=== PATIENT | female | born 1960 | race Two or more races ===

== ENCOUNTER 2016-03-18 18:23 | Inpatient (IN) | payer OTHER ==
--- NOTE | 2016-03-18 18:57 | PDOC ---
History of Present Illness - General History Source: Patient, EMS Exam Limitations: No Limitations <Renetta Clemens - Last Filed: 03/18/16 23:50> <Chika Rodriguez - Last Filed: 03/19/16 00:43> - General Chief Complaint: Overdose Stated Complaint: POSSIBLE OVERDOSE Time Seen by Provider: 03/18/16 18:26 - History of Present Illness Initial Comments: 03/18/16 22:55 The patient is a 56 year old female, with a significant past medical history of COPD and sleep apnea, who presents to the emergency department via EMS after being found unresponsive by her daughter this evening. On route to the ED, the patient admitted to EMS that she used heroin earlier today but does not want her daughter to know, her daughter is with her in the ED. The patient is awake and responsive currently in the ED. Allergies: None reported. Past Surgical History: Tubal ligation, Right Knee Replacement Social History: Current everyday smoker. On Methadone. See HPI. PCP: Dr. Jamilah Tyson Auto Transport Driver: Dr. Mccoy (Renetta Clemens) Past History <Renetta Clemens - Last Filed: 03/18/16 23:50> - Psycho/Social/Smoking Cessation Hx Suicidal Ideation: No Smoking History: Never smoked Hx Alcohol Use: No Drug/Substance Use Hx: No <Chika Rodriguez - Last Filed: 03/19/16 00:43> - Past Medical History Allergies/Adverse Reactions: Allergies Allergy/AdvReac Type Severity Reaction Status Date / Time No Known Allergies Allergy Verified 03/18/16 18:56 Home Medications: Ambulatory Orders Unobtainable [Unobtainable] 03/18/16 Review of Systems - Review of Systems Able to Perform ROS?: Yes <Renetta Clemens - Last Filed: 03/18/16 23:50> <Chika Rodriguez - Last Filed: 03/19/16 00:43> - Review of Systems Comments:: 03/18/16 22:53 CONSTITUTIONAL: Absent: fever, no chills, no fatigue EYES: Absent: visual changes ENT: Absent: ear pain, no sore throat CARDIOVASCULAR: Absent: chest pain, no palpitations RESPIRATORY: Absent: cough, no SOB GI: Absent: abdominal pain, no nausea, no vomiting, no constipation, no diarrhea GENITOURINARY: Absent: dysuria, no frequency, no hematuria MUSCULOSKELETAL: Absent: back pain, no arthralgia, no myalgia SKIN: Absent: rash NEURO: Absent: headache (Renetta Clemens) *Physical Exam <Renetta Clemens - Last Filed: 03/18/16 23:50> <Chika Rodriguez - Last Filed: 03/19/16 00:43> - Vital Signs Last Vital Signs Temp Pulse Resp BP Pulse Ox 98.3 F 90 18 117/78 98 03/18/16 23:25 03/18/16 23:52 03/18/16 23:52 03/18/16 23:52 03/18/16 23:52 - Physical Exam Comments: 03/18/16 22:53 GENERAL: Obese. Patient is intermittently somnolent but wakes up after Narcan. Well-appearing, well-nourished. No apparent distress. HEENT: Normocephalic, atraumatic. PERRL, EOM intact. CARDIOVASCULAR: Regular rate and rhythm. Normal S1, S2. PULMONARY: Lungs clear to auscultation bilaterally. No wheezing, rales or rhonchi. ABDOMEN: Protuberant abdomen, large pannus. Soft, non-tender. EXTREMITIES: Normal ROM in all four extremities. No gross deformities. No pitting edema. SKIN: Warm, dry. No rash. NEUROLOGICAL: No focal neurological deficits. Moving all extremities purposefully. (Renetta Clemens) Heart Score/ECG Review #1 ECG reviewed & interpreted by me at: 19:42 (Vent Rate: 105 bpm. Sinus tachycardia. Possible anterior infarct, age undetermined. ) <Renetta Clemens - Last Filed: 03/18/16 23:50> ED Treatment Course - LABORATORY CBC & Chemistry Diagram: 03/18/16 19:25 03/18/16 19:25 <Renetta Clemens - Last Filed: 03/18/16 23:50> - LABORATORY CBC & Chemistry Diagram: 03/18/16 19:25 03/18/16 19:25 <Chika Rodriguez - Last Filed: 03/19/16 00:43> - ADDITIONAL ORDERS Additional order review: Laboratory Results 03/19/16 03/18/16 03/18/16 00:30 22:20 19:45 Puncture Site Right radial Right radial ABG pH 7.31 L 7.30 L ABG pCO2 at Pt Temp 90.8 H* 90.6 H* D ABG pO2 at Pt Temp 64.8 L 61.6 L ABG HCO3 44.2 H* 43.7 H* ABG O2 Sat (Measured) 91.2 90.3 ABG O2 Content 16.8 16.9 ABG Base Excess 13.8 H 13.2 H North Test Positive Positive O2 Delivery Device Bipap Nasal Oxygen Flow Rate 35% 3l Vent Mode S/t Vent Rate 16 Mechanical Rate Y PEEP 5.0 Pressure Support Vent 12 Sodium Potassium Chloride Carbon Dioxide Anion Gap BUN Creatinine Creat Clearance w eGFR Random Glucose Calcium Total Bilirubin AST ALT Alkaline Phosphatase Total Protein Albumin Opiates Screen Positive Methadone Screen Positive Barbiturate Screen Negative Phencyclidine Screen Negative Ur Amphetamines Screen Negative MDMA (Ecstasy) Screen Negative Benzodiazepines Screen Negative Cocaine Screen Negative U Marijuana (THC) Screen Positive 03/18/16 19:25 Puncture Site ABG pH ABG pCO2 at Pt Temp ABG pO2 at Pt Temp ABG HCO3 ABG O2 Sat (Measured) ABG O2 Content ABG Base Excess North Test O2 Delivery Device Oxygen Flow Rate Vent Mode Vent Rate Mechanical Rate PEEP Pressure Support Vent Sodium 142 Potassium 5.2 H Chloride 96 L Carbon Dioxide > 45 H Anion Gap 1 L BUN 9 D Creatinine 0.7 D Creat Clearance w eGFR > 60 Random Glucose 137 H Calcium 8.6 Total Bilirubin 0.5 D AST 17 D ALT 26 Alkaline Phosphatase 69 Total Protein 6.2 L Albumin 3.2 L Opiates Screen Methadone Screen Barbiturate Screen Phencyclidine Screen Ur Amphetamines Screen MDMA (Ecstasy) Screen Benzodiazepines Screen Cocaine Screen U Marijuana (THC) Screen 03/18/16 19:25 RBC 4.89 MCV 94.4 MCHC 30.7 L RDW 18.0 H D MPV 8.8 Neutrophils % 77.6 Lymphocytes % 14.0 Monocytes % 7.5 Eosinophils % 0.5 Basophils % 0.4 - RADIOLOGY Radiology Studies Ordered: Category Date Time Status CHEST X-RAY PORTABLE* [RAD] Stat Radiology 03/18/16 22:50 Taken CXRPORT [CHEST X-RAY PORTABLE*] [RAD] Stat Radiology 03/18/16 18:59 Taken - Medications Given in the ED: ED Medications Discontinued Medications Generic Name Dose Route Start Last Admin Trade Name Suzie PRN Reason Stop Dose Admin Acetaminophen 1,000 mg 03/18/16 21:09 03/18/16 21:19 Ofirmev Injection - IVPB 03/18/16 21:10 1,000 mg ONCE ONE Administration Albuterol/Ipratropium 1 amp 03/18/16 21:05 03/18/16 23:04 Duoneb - NEB 03/18/16 21:06 1 amp ONCE STA Administration Albuterol/Ipratropium 1 amp 03/19/16 00:33 03/19/16 00:34 Duoneb - NEB 03/19/16 00:34 1 amp ONCE ONE Administration Levofloxacin 100 mls @ 100 mls/hr 03/18/16 23:37 03/18/16 23:38 Levaquin 500 Mg Premixed Ivpb - IVPB 03/19/16 00:36 100 mls/hr ONCE ONE Administration Naloxone HCl 0.2 mg 03/18/16 19:05 03/18/16 19:11 Narcan - IVPUSH 03/18/16 19:06 0.2 mg ONCE ONE Administration Naloxone HCl 0.2 mg 03/18/16 23:01 03/18/16 23:04 Narcan - IVPUSH 03/18/16 23:02 0.2 mg ONCE ONE Administration Naloxone HCl 0.2 mg 03/18/16 23:34 03/18/16 23:38 Narcan - IVPUSH 03/18/16 23:35 Not Given ONCE ONE Medical Decision Making - Critical Care Time Total Critical Care Time (minutes): 120 Critical Care Statement: The care of this patient involved high complexity decision making to prevent further life threatening deterioration of the patient 's condition and/or to evalute & treat vital organ system(s) failure or risk of failure. <Renetta Clemens - Last Filed: 03/18/16 23:50> <Chika Rodriguez - Last Filed: 03/19/16 00:43> - Medical Decision Making 03/18/16 23:03 Called patient's clay stain mixer, Dr. Mccoy, at at 23:05. Connected and case discussed with Dr. Thomas. (Renetta Clemens) 03/18/16 20:12 56-year-old female was brought in by ambulance after she was found nonresponsive by her daughter. However, she was alert upon arrival. She admitted to paramedics she had taken heroin. The paramedics told me that the mother did not want the daughter t0 know -Patient is on methadone daily. I didn't know this when she initially arrived -She was quite somnolent after she had been bit here a while and so a small amount of Narcan 0.2 mg was given and unfortunately she went into immediate withdrawal with yawning ,irritability,and tachycardia -No history patient still smokes. She has a past medical history of 50 pack years of tobacco. She also uses heroin in addition to her daily methadone. Past medical history significant for sleep apnea, COPD. She had been using C Pap machine at home but found this very uncomfortable and is awaiting a BiPAP. machine 03/18/16 23:05 03/18/16 23:06 inital ekg was sinus tach at 105 -Drug Screen is positive for marijuana, methadone, opiates - ABG shows that the patient is a CO2 retainer. Patient was placed on BiPAP. Fio2= 35%, epap=4 ipap=11 her pulse ox=93% Discussed with Dr. Millan. Case is also discussed with the clay stain mixer covering for Dr. Mccoy. I spoke with Dr. Thomas pt admitted for heroin overdose and copd (Chika Rodriguez) *DC/Admit/Observation/Transfer <Renetta Clemens - Last Filed: 03/18/16 23:50> - Discharge Dispostion Admit: Yes <Chika Rodriguez - Last Filed: 03/19/16 00:43> Diagnosis at time of Disposition: Heroin overdose Qualifiers: Encounter type: initial encounter Injury intent: undetermined intent Qualified Code(s): T40.1X4A - Poisoning by heroin, undetermined, initial encounter COPD (chronic obstructive pulmonary disease) Qualifiers: COPD type: unspecified COPD Qualified Code(s): J44.9 - Chronic obstructive pulmonary disease, unspecified Aspiration pneumonia Qualifiers: Aspiration pneumonia type: unspecified Laterality: right Lung location: lower lobe of lung Qualified Code(s): J69.0 - Pneumonitis due to inhalation of food and vomit - Discharge Dispostion Decision to Admit order Date/Time: Decision to Admit Order Category Date Time Status Decision to Admit to Hospital Routine Phy Order 03/19/16 00:27 Ordered - Referrals Referrals: Godwin Mccoy MD [Primary Care Provider] - - Attestations Scribe Attestion: 03/18/16 21:43 Documentation prepared by Renetta Clemens, acting as medical billing instructor for Chika Rodriguez MD. (Jayleen,Renetta)
[2016-03-18] MEDS ORDERED: NALOXONE HCL 0.4 MG/ML VIAL IVPUSH ONE ×3 (19:05→23:34)
[2016-03-18] MEDS ORDERED: NALOXONE HCL 0.4 MG/ML VIAL ONE ×2 (19:14→23:05)
[2016-03-18 19:59] LABS: ALBUMIN 3.2 g/dl (3.4-5.0); BILIRUBIN,TOTAL 0.5 mg/dL (0.2-1.0); CALCIUM 8.6 mg/dL (8.5-10.1); CREATININE 0.7 mg/dL (0.55-1.02); GLUCOSE,RANDOM 137 mg/dL (74-106); SGOT/AST 17 U/L (15-37); TOT PROT 6.2 g/dl (6.4-8.2)
[2016-03-18 20:01] LABS: ALK PHOS 69 U/L (45-117); SGPT/ALT 26 U/L (12-78)
[2016-03-18 20:02] LABS: ANION GAP 1 (8-16); CO2 > 45 mmol/L (21-32)
[2016-03-18 20:12] LABS: BASOPHIL 0.4 % (0-2.0); EOSINOPHIL 0.5 % (0-4.5); MCHC 30.7 g/dl (32.0-36.0); MEAN CELL VOLUME 94.4 fl (80-96); MEAN PLT VOLUME 8.8 fl (7.5-11.1); NEUTROPHILS 77.6 % (42.8-82.8); PLATELET COUNT 179 K/MM3 (134-434); WHITE BLOOD COUNT 9.3 K/mm3 (4.0-10.0)
[2016-03-18 20:15] LABS: URINE MARIJUANA THC POSITIVE ng/ml (CUTOFF=50)
[2016-03-18] MEDS ORDERED: ALBUTEROL SO4 2.5/IPRATROPIUM 0.5 INH SOL 3 ML VIAL.NEB. NEB STA (21:05)
[2016-03-18] MEDS ORDERED: ACETAMINOPHEN 1000 MG/100 ML VIAL (NON FORMULARY) IVPB ONE (21:09)
[2016-03-18] MEDS ORDERED: ACETAMINOPHEN 325 MG TABLET (FP) ONE (21:14)
[2016-03-18 22:21] LABS: ARTERIAL BLD GAS O2 SATURATION 90.3 % (90-98.9); ARTERIAL BLOOD GAS BASE EXCESS 13.2 meq/l (-2-2); ARTERIAL BLOOD GAS HCO3 43.7 meq/L (22-26); ARTERIAL BLOOD GAS PO2 61.6 mmHg (80-100)
[2016-03-18 22:22] LABS: ALLENS TEST POSITIVE; ART PUNCT SITE RIGHT RADIAL; LPM/O2% 3L; PT. ON O2? YES; TYPE OF O2 NASAL
--- NOTE | 2016-03-18 22:45 | PN ---
<Maurice Millan - Last Filed: 03/18/16 22:45> Teaching Attending Note Name of Resident: Love Chambers ATTENDING PHYSICIAN STATEMENT I saw and evaluated the patient. I reviewed the resident's note and discussed the case with the resident. I agree with the resident's findings and plan as documented. SUBJECTIVE: OBJECTIVE: ASSESSMENT AND PLAN: <Brittni Connell - Last Filed: 03/19/16 00:50> Teaching Attending Note ATTENDING PHYSICIAN STATEMENT I saw and evaluated the patient. I reviewed the resident's note and discussed the case with the resident. I agree with the resident's findings and plan as documented. SUBJECTIVE: Patient is a 56 year old female, current smoker, with a significant past medical history of COPD and TENNILLE who presents being found unresponsive by her daughter. Patient admitted to EMS that she used heroin. Up on interview in ED awake and able to answer questions, patient admitted to vomiting x1 earlier today after eating, but unwilling to give further details. OBJECTIVE: Physical: VS: Last Vital Signs Temp Pulse Resp BP Pulse Ox 98.3 F 90 18 117/78 98 03/18/16 23:25 03/18/16 23:52 03/18/16 23:52 03/18/16 23:52 03/18/16 23:52 GEN: NAD, Obese, alert and oriented, able to speak full sentences while on BiPAP HEENT: NCAT, PERRL CARD: tachycardia, S1 S2 RESP mildly decreased breath sounds at bases ABD: abdominal striae, left lower quadrant bruising, BWS x4 non distended EXT: - CCE LABS: CBCD WBC 9.3 K/mm3 (4.0-10.0) 03/18/16 19:25 RBC 4.89 M/mm3 (3.60-5.2) 03/18/16 19:25 Hgb 14.2 GM/dL (10.7-15.3) D 03/18/16 19:25 Hct 46.2 % (32.4-45.2) H 03/18/16 19:25 MCV 94.4 fl (80-96) 03/18/16 19:25 MCHC 30.7 g/dl (32.0-36.0) L 03/18/16 19:25 RDW 18.0 % (11.6-15.6) H D 03/18/16 19:25 Plt Count 179 K/MM3 (134-434) D 03/18/16 19:25 MPV 8.8 fl (7.5-11.1) 03/18/16 19:25 CMP Sodium 142 mmol/L (136-145) 03/18/16 19:25 Potassium 5.2 mmol/L (3.5-5.1) H 03/18/16 19:25 Chloride 96 mmol/L (98-107) L 03/18/16 19:25 Carbon Dioxide > 45 mmol/L (21-32) H 03/18/16 19:25 Anion Gap 1 (8-16) L 03/18/16 19:25 BUN 9 mg/dL (7-18) D 03/18/16 19:25 Creatinine 0.7 mg/dL (0.55-1.02) D 03/18/16 19:25 Creat Clearance w eGFR > 60 (>60) 03/18/16 19:25 Calcium 8.6 mg/dL (8.5-10.1) 03/18/16 19:25 Total Bilirubin 0.5 mg/dL (0.2-1.0) D 03/18/16 19:25 AST 17 U/L (15-37) D 03/18/16 19:25 ALT 26 U/L (12-78) 03/18/16 19:25 Alkaline Phosphatase 69 U/L (45-117) 03/18/16 19:25 Total Protein 6.2 g/dl (6.4-8.2) L 03/18/16 19:25 Albumin 3.2 g/dl (3.4-5.0) L 03/18/16 19:25 IMAGING: CXR with questionable right infiltrate possible left aspiration ECG Impression: Q waves V1V2 Sinus 105 QTC 428 ASSESSMENT AND PLAN: Patient is a 56 year old female current smoker with past medical history of COPD and TENNILLE who presented unresponsive due to heroin overdose in hypercapnic respiratory failure 1.) Acute hypercapnic respiratory failure - Continue with BiPAP - Repeat Abg - CXR and Abg in AM - Most likely due to overdose/OHS/TENNILLE - If Abg worsening or patients condition worsening low threshold for intubation - Repeat Abg reviewed, patient not compliant with mask initially explained importance of BiPAP, will repeat Abg 2.) Heroin overdose - s/p Narcan 0.2x2 in ED and 0.4x2 in ED - Detox consult - Trend troponin 3.) COPD - Currently not in exacerbation - duoneb PRN for SOB - Obtain home meds in AM 4.) TENNILLE - Continue with BiPAP 5.) Right infiltrate on CXR - No leukocytosis or fever - s/p Levaquin in ED - Consider Clindamycin for possible aspiration 6.) Hyperkalemia - s/p Albuterol - Mild at 5.2 - Repeat potassium 7.) DVT ppx - Heparin 5000 q8 Admit to ICU. Documentation prepared by Brittni Connell, acting as medical technologist chemistry for Maurice Millan D.O. Critical Care Total Critical Care Time (in minutes): 60 Critical Care Statement: The care of this patient involved high complexity decision making to prevent further life threatening deterioration of the patient 's condition and/or to evalute & treat vital organ system(s) failure or risk of failure.
[2016-03-18] MEDS ORDERED: LEVOFLOXACIN 500 MG IVPB 100 ML IVPB ONE ×2 (23:37→23:38)
--- NOTE | 2016-03-19 00:10 | HP ---
CHIEF COMPLAINT: Heroin overdose PCP: HISTORY OF PRESENT ILLNESS: The patient is a 56 year old female, with a significant past medical history of COPD, on home Oxygen 2L, obstructive sleep apnea, morbidly obese, who presents to the hospital via EMS after being found unresponsive by her daughter this evening. The pt admitted on the route to the hospital that she took Heroin earlier today. She was given Narcan in ED and was started on Bi-Pap due to hypercapnia. The patient is awake and responsive currently, not in respiratory distress. The pt states that she vomited once today, right after eating. She doesn't want her daughter to know that she took heroin today. She is complaining of pain in her buttocks, After last dose of Narcan in ED she started being anxious with associated jerking movements and yawing constantly. History was taken partially from the pt and from medical records. ER course was notable for: (1)Narcan (2)Chest x ray x2 (3)Bi-Pap PAST MEDICAL HISTORY: COPD, TENNILLE, Morbid obesity PAST SURGICAL HISTORY: Right knee replacement, tubal ligation Social History: Smoking:Yes, doesn't remember how much/how long Alcohol:Denies Drugs: Admits taking Methadone 80 mg daily for 4 years Family History: Doesn't know parents' PMH Allergies No Known Allergies Allergy (Verified 03/18/16 18:56) HOME MEDICATIONS: Medication Instructions Recorded Unobtainable [Unobtainable] 03/18/16 REVIEW OF SYSTEMS: limited CONSTITUTIONAL: Absent: fever, chills HEENT: Absent: throat pain,, ear pain, eye pain, CARDIOVASCULAR: Absent: chest pain, palpitations, RESPIRATORY: Absent: cough, shortness of breath GASTROINTESTINAL: vomiting x 1 Absent: abdominal pain, abdominal distension, nausea, diarrhea, constipation, GENITOURINARY: Absent: dysuria, frequency, urgency, hesitancy, MUSCULOSKELETAL: pain in the buttocks Absent: arthralgia, SKIN: Absent: rash, NEUROLOGIC: Absent: headache PHYSICAL EXAMINATION Vital Signs - 24 hr 03/18/16 03/18/16 03/18/16 18:54 23:11 23:25 Temperature 98.7 F 98.3 F Pulse Rate 90 Pulse Rate [ 98 H Left Radial] Respiratory 20 20 Rate Blood Pressure 152/95 Blood Pressure 150/90 [Left Arm] O2 Sat by Pulse 98 96 98 Oximetry (%) GENERAL: Awake, alert, and oriented, AAx2 (not oriented to time), in no acute distress. HEAD: Normal with no signs of trauma. EYES: Pupils constricted, reactive to light, extraocular movements intact, sclera anicteric, conjunctiva clear. No lid lag. EARS, NOSE, THROAT: Ears normal, nares patent, oropharynx clear without exudates. Moist mucous membranes. NECK: Normal range of motion, supple without lymphadenopathy, JVD, or masses. LUNGS: Breath sounds equal, diminished bilaterally. No wheezes, and no crackles. No accessory muscle use. HEART: Regular rate and rhythm, normal S1 and S2 without murmur, rub or gallop. ABDOMEN: Obese, soft, nontender, not distended, normoactive bowel sounds, no guarding, no rebound, no masses. No hepatomegaly or splenomegaly. MUSCULOSKELETAL: Normal range of motion at all joints. No bony deformities or tenderness. No CVA tenderness. UPPER EXTREMITIES: 2+ pulses, warm, well-perfused. No cyanosis. No clubbing. Cap refill <2 seconds. No peripheral edema. LOWER EXTREMITIES: 2+ pulses, warm, well-perfused. No calf tenderness. No peripheral edema. NEUROLOGICAL: Cranial nerves II-XII intact. Normal speech. Gait not observed. PSYCHIATRIC: Anxious. Cooperative. Good eye contact. SKIN: Warm, dry, normal turgor, no rashes or lesions noted. Laboratory Results - last 24 hr 03/18/16 03/18/16 03/18/16 19:25 19:25 19:45 WBC 9.3 RBC 4.89 Hgb 14.2 D Hct 46.2 H MCV 94.4 MCHC 30.7 L RDW 18.0 H D Plt Count 179 D MPV 8.8 Neutrophils % 77.6 Lymphocytes % 14.0 Monocytes % 7.5 Eosinophils % 0.5 Basophils % 0.4 Puncture Site ABG pH ABG pCO2 at Pt Temp ABG pO2 at Pt Temp ABG HCO3 ABG O2 Sat (Measured) ABG O2 Content ABG Base Excess North Test O2 Delivery Device Oxygen Flow Rate Sodium 142 Potassium 5.2 H Chloride 96 L Carbon Dioxide > 45 H Anion Gap 1 L BUN 9 D Creatinine 0.7 D Creat Clearance w eGFR > 60 Random Glucose 137 H Calcium 8.6 Total Bilirubin 0.5 D AST 17 D ALT 26 Alkaline Phosphatase 69 Total Protein 6.2 L Albumin 3.2 L Opiates Screen Positive Methadone Screen Positive Barbiturate Screen Negative Phencyclidine Screen Negative Ur Amphetamines Screen Negative MDMA (Ecstasy) Screen Negative Benzodiazepines Screen Negative Cocaine Screen Negative U Marijuana (THC) Screen Positive 03/18/16 22:20 WBC RBC Hgb Hct MCV MCHC RDW Plt Count MPV Neutrophils % Lymphocytes % Monocytes % Eosinophils % Basophils % Puncture Site Right radial ABG pH 7.30 L ABG pCO2 at Pt Temp 90.6 H* D ABG pO2 at Pt Temp 61.6 L ABG HCO3 43.7 H* ABG O2 Sat (Measured) 90.3 ABG O2 Content 16.9 ABG Base Excess 13.2 H North Test Positive O2 Delivery Device Nasal Oxygen Flow Rate 3l Sodium Potassium Chloride Carbon Dioxide Anion Gap BUN Creatinine Creat Clearance w eGFR Random Glucose Calcium Total Bilirubin AST ALT Alkaline Phosphatase Total Protein Albumin Opiates Screen Methadone Screen Barbiturate Screen Phencyclidine Screen Ur Amphetamines Screen MDMA (Ecstasy) Screen Benzodiazepines Screen Cocaine Screen U Marijuana (THC) Screen ASSESSMENT/PLAN: The pt is a 56 year ld female with PMH of COPD, TENNILLE, Heroin abuse (on Methadone ) who presents to the hospital after being found unresponsive. She is admitted for hypercapnic respratory failure due to Heroin overdose. Hypercapnic Respiratory Failure: -most likely due to heroin overdose/COPD/TENNILLE -contine Bi-Pap -f/u ABGi in AM -f/u Chest x ray in AM -continue Bi-Pap, consider intubation if her condition worsens Heroin Overdose; -Detox consultation -given Narcan 0.2x3, 0.4x2 -monitor vital signs -cardiac monitoring -cardiac profile, f/u troponins Possible aspiration Pneumonia: -pt vomited, hx of overdose -chest x ray show questionable infiltrate -start antibiotics if fever, leukocytosis, -blood cultures pending History of COPD: -get medication list in AM -Duonebs PRN Hyperkalemia: -5.2 -monitor in AM -s/p Albuterol TENNILLE: -continue Bi-Pap DVT prophylaxis: -5000 u SQ Q8H F/E/N; No/No/Regular Dispisition: Admit to ICU Problem List - Problem (1) COPD (chronic obstructive pulmonary disease) Code(s): J44.9 - CHRONIC OBSTRUCTIVE PULMONARY DISEASE, UNSPECIFIED Qualifiers : COPD type: unspecified COPD Qualified Code(s): J44.9 - Chronic obstructive pulmonary disease, unspecified (2) Aspiration pneumonia Code(s): J69.0 - PNEUMONITIS DUE TO INHALATION OF FOOD AND VOMIT Qualifiers: Aspiration pneumonia type: unspecified Laterality: right Lung location: lower lobe of lung Qualified Code(s): J69.0 - Pneumonitis due to inhalation of food and vomit (3) Heroin overdose Code(s): T40.1X1A - POISONING BY HEROIN, ACCIDENTAL (UNINTENTIONAL), INIT ENCNTR Qualifiers: Encounter type: initial encounter Injury intent: undetermined intent Qualified Code(s): T40.1X4A - Poisoning by heroin, undetermined, initial encounter Visit type - Emergency Visit Emergency Visit: Yes Care time: The patient presented to the Emergency Department on the above date and was hospitalized for further evaluation of their emergent condition. - New Patient This patient is new to me today: Yes Date on this admission: 03/19/16 - Critical Care Critical Care patient: No
[2016-03-19 00:29] LABS: ALLENS TEST POSITIVE; ART PUNCT SITE RIGHT RADIAL; ARTERIAL BLD GAS O2 SATURATION 91.2 % (90-98.9); ARTERIAL BLOOD GAS BASE EXCESS 13.8 meq/l (-2-2); ARTERIAL BLOOD GAS HCO3 44.2 meq/L (22-26); ARTERIAL BLOOD GAS PO2 64.8 mmHg (80-100); ARTERIAL BLOOD GAS pH 7.31 (7.35-7.45); LPM/O2% 35%; MECH. VENT. Y; PT. ON O2? YES
[2016-03-19 00:30] LABS: TYPE OF O2 BIPAP; VENT RATE 16; VT/PRESS 12
[2016-03-19] MEDS ORDERED: ALBUTEROL SO4 2.5/IPRATROPIUM 0.5 INH SOL 3 ML VIAL.NEB. NEB ONE (00:33)
--- NOTE | 2016-03-19 02:26 | CONSULT ---
Consult Consult Specialty:: PULM / CCM Referred by:: Dr. Maurice Millan Reason for Consultation:: OD - History of Present Illness Chief Complaint: "I'm hungry. When is breakfast around Here???" History of Present Illness: Ms. Camacho is a 56 y/o woman w/ a long Hx/o PSA (On Methadone), COPD on home O2 & [place]/[facility] (Pt of Dr. Mccoy), BIBA O/N for AMS in the setting of using Heroin. In the ED c/f hypercapnic ABGs w/ pCO2s in the 90's but HCO3 is off the scale @ > 45 (more c/w a chronic hypercapnea player). Nevertheless, it was felt that the pt required multiple rounds of low dose narcan. The pt was transferred to the ICU now for close watch +/- need for frequent narcan dosing. Upon exam pt in NAD, CA+OX3, requesting breakfast. Careful pt interview reveals that pt had not snorted heroin in > 1wk and then tonight snorted her usual dose in addition to her methadone. Pt can be transferred to Med-Surg for continued care & monitoring. Of note, the pt would like that her daughter NOT be informed of her recent Heroin use. - History Source History Provided By: Patient, Medical Record Limitations to Obtaining History: No Limitations - Past Medical History PROPERTY INSURANCE AGENT: No: Seizure Cardio/Vascular: No: CAD, HTN, Hyperlipdemia, IA, Murmur Pulmonary: Yes: COPD, O2 Dependent, Sleep Apnea Hepatobiliary: No: Cirrhosis Renal/: No: Renal Failure ...: No Heme/Onc: No: Anemia Infectious Disease: No: HIV Psych: Yes: Other (Hx/o PSA on methadone) - Past Surgical History Past Surgical History: Yes: Tubal Ligation Additional Surgical History: R Knee replace - Alcohol/Substance Use Hx Alcohol Use: No History of Substance Use: reports: Heroin - Smoking History Smoking history: Current every day smoker Have you smoked in the past 12 months: Yes - Social History History of Recent Travel: No Home Medications - Allergies Allergies/Adverse Reactions: Allergies Allergy/AdvReac Type Severity Reaction Status Date / Time No Known Allergies Allergy Verified 03/18/16 18:56 - Home Medications Home Medications: Ambulatory Orders Unobtainable [Unobtainable] 03/18/16 Family Disease History - Family Disease History Family History: Denies Review of Systems - Review of Systems Constitutional: reports: No Symptoms Eyes: reports: No Symptoms HENT: reports: No Symptoms Neck: reports: No Symptoms Cardiovascular: reports: No Symptoms Respiratory: reports: No Symptoms Gastrointestinal: reports: No Symptoms Genitourinary: reports: No Symptoms Breasts: reports: No Symptoms Reported Musculoskeletal: reports: No Symptoms Integumentary: reports: No Symptoms Neurological: reports: No Symptoms Endocrine: reports: No Symptoms Hematology/Lymphatic: reports: No Symptoms Psychiatric: reports: No Symptoms Pain Intensity: 0 Physical Exam Vital Signs: Vital Signs Temperature 98.4 F 03/19/16 01:12 Pulse Rate 91 H 03/19/16 01:12 Respiratory Rate 17 03/19/16 01:12 Blood Pressure 112/78 03/19/16 01:12 O2 Sat by Pulse Oximetry (%) 97 03/19/16 02:19 Constitutional: Yes: Well Nourished, No Distress, Calm, Obese, Poor Hygeine Eyes: Yes: WNL, Conjunctiva Clear, EOM Intact HENT: Yes: WNL, Atraumatic, Normocephalic Neck: Yes: WNL, Supple, Trachea Midline Cardiovascular: Yes: WNL, Regular Rate and Rhythm Respiratory: Yes: WNL, Regular, CTA Bilaterally, Cough Gastrointestinal: Yes: WNL, Normal Bowel Sounds, Soft, Abdomen, Obese ...Rectal Exam: Yes: Deferred Renal/: Yes: WNL Breast(s): Yes: WNL Musculoskeletal: Yes: WNL Extremities: Yes: WNL Edema: No Peripheral Pulses WNL: Yes Integumentary: Yes: WNL Neurological: Yes: WNL, Alert, Oriented ...Motor Strength: WNL Psychiatric: Yes: WNL Labs: CBC, BMP 03/18/16 19:25 03/18/16 19:25 Troponin, BNP 03/19/16 01:09 Troponin I < 0.02 Laboratory Results - last 24 hr 03/18/16 03/18/16 03/18/16 19:25 19:25 19:45 WBC 9.3 RBC 4.89 Hgb 14.2 D Hct 46.2 H MCV 94.4 MCHC 30.7 L RDW 18.0 H D Plt Count 179 D MPV 8.8 Neutrophils % 77.6 Lymphocytes % 14.0 Monocytes % 7.5 Eosinophils % 0.5 Basophils % 0.4 Puncture Site ABG pH ABG pCO2 at Pt Temp ABG pO2 at Pt Temp ABG HCO3 ABG O2 Sat (Measured) ABG O2 Content ABG Base Excess North Test O2 Delivery Device Oxygen Flow Rate Vent Mode Vent Rate Mechanical Rate PEEP Pressure Support Vent Sodium 142 Potassium 5.2 H Chloride 96 L Carbon Dioxide > 45 H Anion Gap 1 L BUN 9 D Creatinine 0.7 D Creat Clearance w eGFR > 60 Random Glucose 137 H Calcium 8.6 Total Bilirubin 0.5 D AST 17 D ALT 26 Alkaline Phosphatase 69 Troponin I Total Protein 6.2 L Albumin 3.2 L Opiates Screen Positive Methadone Screen Positive Barbiturate Screen Negative Phencyclidine Screen Negative Ur Amphetamines Screen Negative MDMA (Ecstasy) Screen Negative Benzodiazepines Screen Negative Cocaine Screen Negative U Marijuana (THC) Screen Positive Imaging - Results Chest X-ray: Image Reviewed (03/18: Bibasilar infiltrates, otherwise unremark (My Read).) EKG: Image Reviewed (S-Tach in the low 100's w/o ectopy, normal axis, Q waves in : V1, V2, V3, c/f anterior infarct, but ST-wave aberrations, QTc = 428ms (My Read).) Problem List - Problems (1) COPD (chronic obstructive pulmonary disease) Code(s): J44.9 - CHRONIC OBSTRUCTIVE PULMONARY DISEASE, UNSPECIFIED Qualifiers : COPD type: unspecified COPD Qualified Code(s): J44.9 - Chronic obstructive pulmonary disease, unspecified (2) Heroin overdose Code(s): T40.1X1A - POISONING BY HEROIN, ACCIDENTAL (UNINTENTIONAL), INIT ENCNTR Qualifiers: Encounter type: initial encounter Injury intent: undetermined intent Qualified Code(s): T40.1X4A - Poisoning by heroin, undetermined, initial encounter Assessment/Plan ASSESS: This is a 56 y/o woman w/ a long Hx/o PSA (On Methadone), COPD on home O2 & [place]/[facility] (Pt of Dr. Mccoy), admitted now w/ A on C hypercapnia in the setting of using heroin. PLAN: -STOP CHECKING THIS PT's ABG -THIS PT's BASELINE ABGs ARE ABNORMAL -THIS PT's ABG WHEN SHE IS AWAKE & TALKING IS HER NORMAL ABG -Supp FiO2 for SpO2 > 92% -Nebs -Nocturnal Bi-Level -Cover for CAP -F/u Clxr data -Cont Mehadone @ 80mg PO QD -Nicotene patch -Reg Diet -SQH -PPI -D/c --> Home to F/u w/ Dr. Mccoy as an outpatient -Pt should stop snorting Heroin RUDOLPH Venkat Lares, ACNP-BC [id number] PULM / CCM
[2016-03-19 02:58] VITALS: BMI 41.2
[2016-03-19] MEDS: HEPARIN NA (PORCINE) 5,000 UNITS/ML 1ML VIAL SQ SCH ×2 (03:07→11:07)
[2016-03-19 03:33] LABS: TROPONIN I < 0.02 ng/ml (0.00-0.05)
[2016-03-19] MEDS ORDERED: CEFTRIAXONE 50 ML IVPB SCH (04:00)
[2016-03-19] MEDS ORDERED: AZITHROMYCIN IVPB 250 ML IVPB SCH (04:00)
[2016-03-19 06:19] LABS: MCH 29.3 pg (25.7-33.7); MCHC 31.3 g/dl (32.0-36.0); MEAN CELL VOLUME 93.6 fl (80-96); MEAN PLT VOLUME 9.2 fl (7.5-11.1); PLATELET COUNT 182 K/MM3 (134-434); RDW 16.9 % (11.6-15.6); WHITE BLOOD COUNT 6.6 K/mm3 (4.0-10.0)
[2016-03-19 06:44] LABS: TROPONIN I < 0.02 ng/ml (0.00-0.05)
[2016-03-19 09:42] LABS: ANION GAP 1 (8-16); CALCIUM 8.4 mg/dL (8.5-10.1); CO2 45 mmol/L (21-32); CREATININE 0.5 mg/dL (0.55-1.02); GLUCOSE,RANDOM 90 mg/dL (74-106)
[2016-03-19] MEDS ORDERED: MUPIROCIN 2% TOPICAL OINTMENT FOR DECOLONIZATION NS SCH (10:00)
[2016-03-19] MEDS ORDERED: PNEUMOC 13-VAL CONJ-DIP CRM/PF 0.5 ML DISP.SYRIN IM ONE (11:29)
--- NOTE | 2016-03-19 13:12 | PN ---
Teaching Attending Note Name of Resident: Keith Mercado ATTENDING PHYSICIAN STATEMENT I saw and evaluated the patient. I reviewed the resident's note and discussed the case with the resident. I agree with the resident's findings and plan as documented. SUBJECTIVE: Patient seen and examined in the ICU. Sleepy but very easily arousable. Asking for her Methadone. Denies CP or SOB. Constitutional: Yes: Sleepy but easily arousable, NAD obese Eyes: Yes: WNL, Conjunctiva Clear, EOM Intact HENT: Yes: WNL, Atraumatic, Normocephalic Neck: Yes: WNL, Supple, Trachea Midline Cardiovascular: Yes: WNL, Regular Rate and Rhythm Respiratory: Yes: WNL, Regular, CTA Bilaterally, Cough Gastrointestinal: Yes: WNL, Normal Bowel Sounds, Soft, Abdomen, Obese ...Rectal Exam: Yes: Deferred Renal/: Yes: WNL Breast(s): Yes: WNL Musculoskeletal: Yes: WNL Extremities: Yes: WNL Edema: No Peripheral Pulses WNL: Yes Integumentary: Yes: WNL Neurological: Yes: WNL, Alert, Oriented ...Motor Strength: WNL Psychiatric: Yes: WNL Labs: Laboratory Results - last 24 hr 03/18/16 03/18/16 03/18/16 19:25 19:25 19:45 WBC 9.3 RBC 4.89 Hgb 14.2 D Hct 46.2 H MCV 94.4 MCHC 30.7 L RDW 18.0 H D Plt Count 179 D MPV 8.8 Neutrophils % 77.6 Lymphocytes % 14.0 Monocytes % 7.5 Eosinophils % 0.5 Basophils % 0.4 Puncture Site ABG pH ABG pCO2 at Pt Temp ABG pO2 at Pt Temp ABG HCO3 ABG O2 Sat (Measured) ABG O2 Content ABG Base Excess North Test O2 Delivery Device Oxygen Flow Rate Vent Mode Vent Rate Mechanical Rate PEEP Pressure Support Vent Sodium 142 Potassium 5.2 H Chloride 96 L Carbon Dioxide > 45 H Anion Gap 1 L BUN 9 D Creatinine 0.7 D Creat Clearance w eGFR > 60 Random Glucose 137 H Calcium 8.6 Total Bilirubin 0.5 D AST 17 D ALT 26 Alkaline Phosphatase 69 Creatine Kinase 34 Troponin I < 0.02 Total Protein 6.2 L Albumin 3.2 L Opiates Screen Positive Methadone Screen Positive Barbiturate Screen Negative Phencyclidine Screen Negative Ur Amphetamines Screen Negative MDMA (Ecstasy) Screen Negative Benzodiazepines Screen Negative Cocaine Screen Negative U Marijuana (THC) Screen Positive 03/18/16 03/19/16 03/19/16 22:20 00:30 01:09 WBC RBC Hgb Hct MCV MCHC RDW Plt Count MPV Neutrophils % Lymphocytes % Monocytes % Eosinophils % Basophils % Puncture Site Right radial Right radial ABG pH 7.30 L 7.31 L ABG pCO2 at Pt Temp 90.6 H* D 90.8 H* ABG pO2 at Pt Temp 61.6 L 64.8 L ABG HCO3 43.7 H* 44.2 H* ABG O2 Sat (Measured) 90.3 91.2 ABG O2 Content 16.9 16.8 ABG Base Excess 13.2 H 13.8 H North Test Positive Positive O2 Delivery Device Nasal Bipap Oxygen Flow Rate 3l 35% Vent Mode S/t Vent Rate 16 Mechanical Rate Y PEEP 5.0 Pressure Support Vent 12 Sodium Cancelled Potassium Cancelled Chloride Cancelled Carbon Dioxide Cancelled Anion Gap Cancelled BUN Cancelled Creatinine Cancelled Creat Clearance w eGFR Random Glucose Cancelled Calcium Cancelled Total Bilirubin AST ALT Alkaline Phosphatase Creatine Kinase Troponin I < 0.02 Total Protein Albumin Opiates Screen Methadone Screen Barbiturate Screen Phencyclidine Screen Ur Amphetamines Screen MDMA (Ecstasy) Screen Benzodiazepines Screen Cocaine Screen U Marijuana (THC) Screen 03/19/16 03/19/16 03/19/16 05:00 05:00 05:00 WBC 6.6 RBC 4.51 Hgb 13.2 Hct 42.2 MCV 93.6 MCHC 31.3 L RDW 16.9 H Plt Count 182 MPV 9.2 Neutrophils % Lymphocytes % Monocytes % Eosinophils % Basophils % Puncture Site ABG pH ABG pCO2 at Pt Temp ABG pO2 at Pt Temp ABG HCO3 ABG O2 Sat (Measured) ABG O2 Content ABG Base Excess North Test O2 Delivery Device Oxygen Flow Rate Vent Mode Vent Rate Mechanical Rate PEEP Pressure Support Vent Sodium Cancelled 142 Potassium Cancelled 3.9 D Chloride Cancelled 96 L Carbon Dioxide Cancelled 45 H Anion Gap Cancelled 1 L BUN Cancelled 7 D Creatinine Cancelled 0.5 L D Creat Clearance w eGFR Random Glucose Cancelled 90 D Calcium Cancelled 8.4 L Total Bilirubin AST ALT Alkaline Phosphatase Creatine Kinase Troponin I < 0.02 Total Protein Albumin Opiates Screen Methadone Screen Barbiturate Screen Phencyclidine Screen Ur Amphetamines Screen MDMA (Ecstasy) Screen Benzodiazepines Screen Cocaine Screen U Marijuana (THC) Screen Problem List - Problems (1) COPD (chronic obstructive pulmonary disease) Code(s): J44.9 - CHRONIC OBSTRUCTIVE PULMONARY DISEASE, UNSPECIFIED Qualifiers : COPD type: unspecified COPD Qualified Code(s): J44.9 - Chronic obstructive pulmonary disease, unspecified (2) Heroin overdose Code(s): T40.1X1A - POISONING BY HEROIN, ACCIDENTAL (UNINTENTIONAL), INIT ENCNTR Qualifiers: Encounter type: initial encounter Injury intent: undetermined intent Qualified Code(s): T40.1X4A - Poisoning by heroin, undetermined, initial encounter Assessment/Plan ASSESS: This is a 56 y/o woman w/ a long Hx/o PSA (On Methadone), COPD on home O2 & [place]/[facility], admitted now w/ A on C hypercapnia in the setting of using heroin. PLAN: -Supp FiO2 for SpO2 > 92% -Nebs -Nocturnal Bi-Level -Addiction consult for input about Methadone 80mg PO QD -Nicotene patch -[facility] -4W/4S monitoring Dr Chadwick CCTime 35"
[2016-03-19] MEDS ORDERED: ALBUTEROL SO4 2.5/IPRATROPIUM 0.5 INH SOL 3 ML VIAL.NEB. NEB PRN (13:49)
[2016-03-19] MEDS ORDERED: ACETAMINOPHEN 325 MG TABLET (FP) PO PRN (13:56)
[2016-03-19] MEDS ORDERED: DOCUSATE SODIUM 100 MG CAPSULE (FP) PO SCH (14:00)
[2016-03-19] MEDS ORDERED: METHADONE HCL 10 MG TABLET PO ONE (14:02)
[2016-03-19] MEDS ORDERED: ASPIRIN 81 MG CHEWABLE TABLETS ONE (14:08)
--- NOTE | 2016-03-19 14:09 | PN ---
[facility] Progress Note (SOAP) Subjective: PT. WAS FOUND UNRESPONSIVE AT HOME BY DAUGHTERYU TO ED,NARCAN GIVEN.ACCORDING TO DOCUMENTATION PT. ADMITS TO USING HEROIN IN ADDITION TO METHADONE 80MG. Objective: 03/19/16 14:07 Vital Signs - 8 hr 03/19/16 03/19/16 03/19/16 08:00 10:00 10:04 Temperature 98.4 F Pulse Rate 94 H 88 99 H Respiratory 15 17 Rate Blood Pressure 111/68 106/79 O2 Sat by Pulse 97 97 Oximetry (%) Laboratory Tests 03/18/16 03/18/16 03/18/16 19:25 19:25 19:45 WBC 9.3 RBC 4.89 Hgb 14.2 D Hct 46.2 H MCV 94.4 MCHC 30.7 L RDW 18.0 H D Plt Count 179 D MPV 8.8 Neutrophils % 77.6 Lymphocytes % 14.0 Monocytes % 7.5 Eosinophils % 0.5 Basophils % 0.4 Puncture Site ABG pH ABG pCO2 at Pt Temp ABG pO2 at Pt Temp ABG HCO3 ABG O2 Sat (Measured) ABG O2 Content ABG Base Excess North Test O2 Delivery Device Oxygen Flow Rate Vent Mode Vent Rate Mechanical Rate PEEP Pressure Support Vent Sodium 142 Potassium 5.2 H Chloride 96 L Carbon Dioxide > 45 H Anion Gap 1 L BUN 9 D Creatinine 0.7 D Creat Clearance w eGFR > 60 Random Glucose 137 H Calcium 8.6 Total Bilirubin 0.5 D AST 17 D ALT 26 Alkaline Phosphatase 69 Creatine Kinase 34 Troponin I < 0.02 Total Protein 6.2 L Albumin 3.2 L Opiates Screen Positive Methadone Screen Positive Barbiturate Screen Negative Phencyclidine Screen Negative Ur Amphetamines Screen Negative MDMA (Ecstasy) Screen Negative Benzodiazepines Screen Negative Cocaine Screen Negative U Marijuana (THC) Screen Positive 03/18/16 03/19/16 03/19/16 22:20 00:30 01:09 WBC RBC Hgb Hct MCV MCHC RDW Plt Count MPV Neutrophils % Lymphocytes % Monocytes % Eosinophils % Basophils % Puncture Site Right radial Right radial ABG pH 7.30 L 7.31 L ABG pCO2 at Pt Temp 90.6 H* D 90.8 H* ABG pO2 at Pt Temp 61.6 L 64.8 L ABG HCO3 43.7 H* 44.2 H* ABG O2 Sat (Measured) 90.3 91.2 ABG O2 Content 16.9 16.8 ABG Base Excess 13.2 H 13.8 H North Test Positive Positive O2 Delivery Device Nasal Bipap Oxygen Flow Rate 3l 35% Vent Mode S/t Vent Rate 16 Mechanical Rate Y PEEP 5.0 Pressure Support Vent 12 Sodium Cancelled Potassium Cancelled Chloride Cancelled Carbon Dioxide Cancelled Anion Gap Cancelled BUN Cancelled Creatinine Cancelled Creat Clearance w eGFR Random Glucose Cancelled Calcium Cancelled Total Bilirubin AST ALT Alkaline Phosphatase Creatine Kinase Troponin I < 0.02 Total Protein Albumin Opiates Screen Methadone Screen Barbiturate Screen Phencyclidine Screen Ur Amphetamines Screen MDMA (Ecstasy) Screen Benzodiazepines Screen Cocaine Screen U Marijuana (THC) Screen 03/19/16 03/19/16 03/19/16 05:00 05:00 05:00 WBC 6.6 RBC 4.51 Hgb 13.2 Hct 42.2 MCV 93.6 MCHC 31.3 L RDW 16.9 H Plt Count 182 MPV 9.2 Neutrophils % Lymphocytes % Monocytes % Eosinophils % Basophils % Puncture Site ABG pH ABG pCO2 at Pt Temp ABG pO2 at Pt Temp ABG HCO3 ABG O2 Sat (Measured) ABG O2 Content ABG Base Excess North Test O2 Delivery Device Oxygen Flow Rate Vent Mode Vent Rate Mechanical Rate PEEP Pressure Support Vent Sodium Cancelled 142 Potassium Cancelled 3.9 D Chloride Cancelled 96 L Carbon Dioxide Cancelled 45 H Anion Gap Cancelled 1 L BUN Cancelled 7 D Creatinine Cancelled 0.5 L D Creat Clearance w eGFR Random Glucose Cancelled 90 D Calcium Cancelled 8.4 L Total Bilirubin AST ALT Alkaline Phosphatase Creatine Kinase Troponin I < 0.02 Total Protein Albumin Opiates Screen Methadone Screen Barbiturate Screen Phencyclidine Screen Ur Amphetamines Screen MDMA (Ecstasy) Screen Benzodiazepines Screen Cocaine Screen U Marijuana (THC) Screen LABS NOTED Assessment: 03/19/16 14:07 OPIOID DEPENDENCE ON AGONIST THERAPY DRUG OVERDOSE Plan: RESUME METHADONE 80MG DAILY
[2016-03-19 15:34] VITALS: BP 126/82; PULSE 87; TEMP 98.6
--- NOTE | 2016-03-19 16:53 | DS ---
Physical Exam: SUBJECTIVE: Patient seen and examined Pt is aaox4. No s/s of acute distress no fever, no fever chills no chest pain or sob, no palpitation OBJECTIVE: Vital Signs Period Temp Pulse Resp BP Sys/Colon Pulse Ox Last 24 Hr 98.2 F-98.6 F 87-99 15-20 101-126/67-82 95-97 PHYSICAL EXAM GENERAL: The patient is awake, alert, and fully oriented, in no acute distress. HEAD: Normal with no signs of trauma. EYES: PERRL, extraocular movements intact, sclera anicteric, conjunctiva clear. ENT: Ears normal, nares patent, oropharynx clear without exudates, moist mucous membranes. NECK: Trachea midline, full range of motion, supple. LUNGS: Breath sounds equal, clear to auscultation bilaterally, no wheezes, no crackles, no accessory muscle use. HEART: Regular rate and rhythm, S1, S2 without murmur, rub or gallop. ABDOMEN: Obese, Soft, nontender, nondistended, normoactive bowel sounds, no guarding, no rebound, no hepatosplenomegaly, no masses. EXTREMITIES: 2+ pulses, warm, well-perfused, no edema. NEUROLOGICAL: Cranial nerves II through XII grossly intact. Normal speech, gait not observed. PSYCH: Normal mood, normal affect. SKIN: Warm, dry, normal turgor, no rashes or lesions noted. LABS Laboratory Results - last 24 hr 03/19/16 03/19/16 03/19/16 05:00 05:00 05:00 WBC 6.6 RBC 4.51 Hgb 13.2 Hct 42.2 MCV 93.6 MCHC 31.3 L RDW 16.9 H Plt Count 182 MPV 9.2 Sodium Cancelled 142 Potassium Cancelled 3.9 D Chloride Cancelled 96 L Carbon Dioxide Cancelled 45 H Anion Gap Cancelled 1 L BUN Cancelled 7 D Creatinine Cancelled 0.5 L D Random Glucose Cancelled 90 D Calcium Cancelled 8.4 L Troponin I < 0.02 CBC, BMP 03/19/16 05:00 03/19/16 05:00 Laboratory Tests 03/18/16 03/18/16 03/19/16 19:25 19:45 01:09 Calcium AST 17 D ALT 26 Alkaline Phosphatase 69 Troponin I < 0.02 < 0.02 Albumin 3.2 L Opiates Screen Positive Methadone Screen Positive U Marijuana (THC) Screen Positive 03/19/16 05:00 Calcium 8.4 L AST ALT Alkaline Phosphatase Troponin I < 0.02 Albumin Opiates Screen Methadone Screen U Marijuana (THC) Screen HOSPITAL COURSE: Date of Admission:03/19/16 The patient is a 56 year old female, with a significant past medical history of COPD, on home Oxygen 2L, obstructive sleep apnea, morbidly obese, who presents to the hospital via EMS after being found unresponsive by her daughter this evening. The pt admitted on the route to the hospital that she took Heroin earlier today. She was given Narcan in ED and was started on Bi-Pap due to hypercapnia. The patient is awake and responsive currently, not in respiratory distress. The pt states that she vomited once today, right after eating. She doesn't want her daughter to know that she took heroin today. She is complaining of pain in her buttocks, After last dose of Narcan in ED she started being anxious with associated jerking movements and yawing constantly. History was taken partially from the pt and from medical records. ER course was notable for: (1) Narcan (2)Chest x ray x2 (3)Bi-Pap 56 y/o female with history of polysubstance abuse on methadone 80mg po qd, COPD on home O2, obstructive sleep apnea, obesity class III admitted after being found unresponsive post heroin use. PT was received multiple dose of Narcan, placed on BIPAP, bronchodilators. Pt has chronic hypercarbia and resulting elevated bicarb as her baseline due to her long h/o of COPD/[place]/OHS. Pt has return to her normal mental status overnight and was transferred to the floor in the morning. Pt is now completely asymptomatic and requesting to go home. Patient being discharged home with appointment with DR mccoy travelift operator and Dr Tyson PCP. Dr Soriano was consulted, methadone dose was verified and continued. Pt is educated about the danger of using narcotics, alcohol, benzodiazepine, other depressants and illegal drugs while on methadone, the combination can be fatal. Date of Discharge: 03/19/16 Minutes to complete discharge: 40 Discharge Summary Reason For Visit: HEROIN OVERDOSE COPD ASPIRATION PNEUMONIA Current Active Problems Aspiration pneumonia (Acute) COPD (chronic obstructive pulmonary disease) (Acute) Heroin overdose (Acute) Condition: Stable - Instructions Diet, Activity, Other Instructions: Discharge Home Resume Home diet Resume Home activity Follow up with Dr Tyson, primary care physician, within [address] Mccyo, travelift operator, within 1 week for sleep study. If start having fever, chills, productive cough, shortness of breath, wheezing please return to the Emergency department or call your primary care physician Referrals: Godwin Mccoy MD [Primary Care Provider] - Jamilah yTson MD [Staff Physician] - Disposition: HOME - Home Medications Comprehensive Discharge Medication List: Ambulatory Orders Alprazolam [Xanax] 0.5 mg PO BID 03/19/16 Amlodipine Besylate [Norvasc -] 10 mg PO DAILY 03/19/16 Aspirin [ASA -] 81 mg PO DAILY 03/19/16 Docusate Sodium [Colace -] 100 mg PO TID 03/19/16 Enalapril Maleate [Vasotec] 5 mg PO DAILY 03/19/16 Furosemide [Lasix -] 40 mg PO DAILY 03/19/16 Metformin HCl [Glucophage] 500 mg PO TID 03/19/16 Methadone [Dolophine -] 80 mg PO DAILY 03/19/16 Montelukast Na [Singulair -] 10 mg PO HS 03/19/16 Pantoprazole Sodium [Protonix] 40 mg PO DAILY 03/19/16 This patient is new to me today: Yes Date on this admission: 03/19/16 Emergency Visit: Yes ED Registration Date: 03/19/16 Care time: The patient presented to the Emergency Department on the above date and was hospitalized for further evaluation of their emergent condition. Critical Care patient: No - Discharge Referral Referred to [facility] Med P.C.: No
--- NOTE | 2016-03-19 16:53 | PN ---
Teaching Attending Note Name of Resident: Rudy Richards ATTENDING PHYSICIAN STATEMENT I saw and evaluated the patient. I reviewed the resident's note and discussed the case with the resident. I agree with the resident's findings and plan as documented. SUBJECTIVE: In ICU OBJECTIVE: Vital Signs Temperature 98.6 F 03/19/16 15:00 Pulse Rate 87 03/19/16 15:00 Respiratory Rate 18 03/19/16 15:00 Blood Pressure 126/82 03/19/16 15:00 O2 Sat by Pulse Oximetry (%) 95 03/19/16 14:18 GENERAL: The patient is awake, alert, and fully oriented, in no acute distress. HEAD: Normal with no signs of trauma. EYES: PERRL, extraocular movements intact, sclera anicteric, conjunctiva clear. ENT: Ears normal, oropharynx clear without exudates, moist mucous membranes. NECK: Trachea midline, full range of motion, supple. LUNGS: Breath sounds equal, clear to auscultation bilaterally, no wheezes, no crackles, no accessory muscle use. HEART: Regular rate and rhythm, S1, S2 without murmur, rub or gallop. ABDOMEN: Obese, Soft, nontender, nondistended, normoactive bowel sounds, no guarding, no rebound, no hepatosplenomegaly, no masses. EXTREMITIES: 2+ pulses, warm, well-perfused, no edema. NEUROLOGICAL: Cranial nerves II through XII grossly intact. Normal speech PSYCH: Normal mood, normal affect. SKIN: Warm, dry, normal turgor, no rashes or lesions noted. CBCD WBC 6.6 K/mm3 (4.0-10.0) 03/19/16 05:00 RBC 4.51 M/mm3 (3.60-5.2) 03/19/16 05:00 Hgb 13.2 GM/dL (10.7-15.3) 03/19/16 05:00 Hct 42.2 % (32.4-45.2) 03/19/16 05:00 MCV 93.6 fl (80-96) 03/19/16 05:00 MCHC 31.3 g/dl (32.0-36.0) L 03/19/16 05:00 RDW 16.9 % (11.6-15.6) H 03/19/16 05:00 Plt Count 182 K/MM3 (134-434) 03/19/16 05:00 MPV 9.2 fl (7.5-11.1) 03/19/16 05:00 CMP Sodium 142 mmol/L (136-145) 03/19/16 05:00 Potassium 3.9 mmol/L (3.5-5.1) D 03/19/16 05:00 Chloride 96 mmol/L (98-107) L 03/19/16 05:00 Carbon Dioxide 45 mmol/L (21-32) H 03/19/16 05:00 Anion Gap 1 (8-16) L 03/19/16 05:00 BUN 7 mg/dL (7-18) D 03/19/16 05:00 Creatinine 0.5 mg/dL (0.55-1.02) L D 03/19/16 05:00 Creat Clearance w eGFR > 60 (>60) 03/18/16 19:25 Random Glucose 90 mg/dL (74-106) D 03/19/16 05:00 Calcium 8.4 mg/dL (8.5-10.1) L 03/19/16 05:00 Total Bilirubin 0.5 mg/dL (0.2-1.0) D 03/18/16 19:25 AST 17 U/L (15-37) D 03/18/16 19:25 ALT 26 U/L (12-78) 03/18/16 19:25 Alkaline Phosphatase 69 U/L (45-117) 03/18/16 19:25 Total Protein 6.2 g/dl (6.4-8.2) L 03/18/16 19:25 Albumin 3.2 g/dl (3.4-5.0) L 03/18/16 19:25 CARDIAC ENZYMES Creatine Kinase 34 IU/L (26-192) 03/18/16 19:25 Troponin I < 0.02 ng/ml (0.00-0.05) 03/19/16 05:00 Current Medications Generic Name Dose Route Start Last Admin Trade Name Freq PRN Reason Stop Dose Admin Acetaminophen 650 mg 03/19/16 13:56 03/19/16 14:48 Tylenol - PO 650 mg Q4H PRN Administration FEVER OR PAIN Albuterol/Ipratropium 1 amp 03/19/16 13:49 Duoneb - NEB Q4H PRN SHORTNESS OF BREATH Alprazolam 0.5 mg 03/19/16 22:00 Xanax - PO BID [facility] Aspirin 81 mg 03/20/16 10:00 Asa - PO DAILY [facility] Docusate Sodium 100 mg 03/19/16 14:00 03/19/16 14:26 Colace - PO 100 mg TID [facility] Administration Heparin Sodium (Porcine) 5,000 unit 03/19/16 18:00 Heparin - SQ Q8H-IV [facility] Ceftriaxone Sodium 50 mls @ 100 mls/hr 03/20/16 10:00 Rocephin 1gm Ivpb (Pre-Docked) IVPB DAILY [facility] Azithromycin 250 mls @ 250 mls/hr 03/20/16 10:00 Zithromax 500mg Ivpb (Pre-Docked) IVPB 03/24/16 03:59 DAILY [facility] Methadone HCl 80 mg 03/20/16 06:00 Dolophine - PO DAILY@0600 [facility] Montelukast Sodium 10 mg 03/19/16 22:00 Singulair - PO [facility] Pantoprazole Sodium 40 mg 03/20/16 10:00 Protonix - PO DAILY [facility] Medication Instructions Recorded Alprazolam [Xanax] 0.5 mg PO BID 03/19/16 Amlodipine Besylate [Norvasc -] 10 mg PO DAILY 03/19/16 Aspirin [ASA -] 81 mg PO DAILY 03/19/16 Docusate Sodium [Colace -] 100 mg PO TID 03/19/16 Enalapril Maleate [Vasotec] 5 mg PO DAILY 03/19/16 Furosemide [Lasix -] 40 mg PO DAILY 03/19/16 Metformin HCl [Glucophage] 500 mg PO TID 03/19/16 Methadone [Dolophine -] 80 mg PO DAILY 03/19/16 Montelukast Na [Singulair -] 10 mg PO HS 03/19/16 Pantoprazole Sodium [Protonix] 40 mg PO DAILY 03/19/16 ASSESSMENT AND PLAN: Patient is a 56 year old female current smoker with past medical history of COPD and TENNILLE who presented unresponsive due to heroin overdose in hypercapnic respiratory failure # Acute hypercapnic respiratory failure due to Heroin was placed on BiPAP # Heroin overdose s/p Narcan 0.2x2 in ED and 0.4x2 in ED # Acute COPD exacerbation due to heroin # TENNILLE # Right infiltrate on CXR Consider Clindamycin for possible aspiration # s/p Hyperkalemia s/p Albuterol Follow with Dr Mccoy as an outpatient for Bipap machine follow methadone clinic 80mg daily ceftin 500mg po bid x 7 days zithromax 250mg 3 more days
--- NOTE | 2016-03-19 17:12 | EKG ---
Test Reason : Blood Pressure : / mmHG Vent. Rate : 105 BPM Atrial Rate : 105 BPM P-R Int : 116 ms QRS Dur : 074 ms QT Int : 324 ms P-R-T Axes : 063 054 051 degrees QTc Int : 428 ms SINUS TACHYCARDIA POSSIBLE ANTERIOR INFARCT , AGE UNDETERMINED ABNORMAL ECG NO PREVIOUS ECGS AVAILABLE Confirmed by KAYLIN RUIZ MD ([id number]) on 03/19/2016 5:12:18 PM Referred By: Confirmed By:KAYLIN RUIZ MD
[2016-03-19] MEDS ORDERED: HEPARIN NA (PORCINE) 5,000 UNITS/ML 1ML VIAL SQ SCH (18:00)
[2016-03-19] MEDS ORDERED: MONTELUKAST NA 10 MG TABLET PO SCH (22:00)
[2016-03-19] MEDS ORDERED: ALPRAZolam 0.25 MG TABLET PO SCH (22:00)
[2016-03-19] MEDS ORDERED: CHLORHEXIDINE GLUCONATE 4% CLEANSER FOR DECOLONIZATION TP SCH (22:00)
[2016-03-20] MEDS ORDERED: METHADONE HCL 10 MG TABLET PO SCH (06:00)
[2016-03-20] MEDS ORDERED: PANTOPRAZOLE 40 MG TABLET (FP) PO SCH (10:00)
[2016-03-20] MEDS ORDERED: CEFTRIAXONE 1G/50 ML IVPB SCH (10:00)
[2016-03-20] MEDS ORDERED: AZITHROMYCIN IVPB 500MG/250 ML IVPB SCH (10:00)
[2016-03-20] MEDS ORDERED: ASPIRIN 81 MG CHEWABLE TABLETS PO SCH (10:00)
== END 2016-03-19 18:50 | disposition home or self-care (01) | DRG 816 ==
LOC: JER 18:23 → JICU 03-19 01:12 → J4S 03-19 11:57
PROVIDERS: ADMIT Internal Medicine; ATTEND Internal Medicine
PROC: 5A0935Z Assistance with Respiratory Ventilation, Less than 24 Consecutive Hours (ICD-10-PCS; principal; 2016-03-18)
PROC: HZ91ZZZ Pharmacotherapy for Substance Abuse Treatment, Methadone Maintenance (ICD-10-PCS; 2016-03-19)
DX: T40.1X1A Poisoning by heroin, accidental (unintentional), initial encounter (principal); Y92.009 Unspecified place in unspecified non-institutional (private) residence as the place of occurrence of the external cause; J44.9 Chronic obstructive pulmonary disease, unspecified; G47.30 Sleep apnea, unspecified; J69.0 Pneumonitis due to inhalation of food and vomit; F17.210 Nicotine dependence, cigarettes, uncomplicated; J96.02 Acute respiratory failure with hypercapnia; E87.5 Hyperkalemia; Z99.81 Dependence on supplemental oxygen; E66.9 Obesity, unspecified; Z68.41 Body mass index [BMI] 40.0-44.9, adult
CPT/HCPCS: 36415; 36600; 71010-TC; 80048; 80053; 80307; 82550; 82803; 84484; 85025; 85027; 87040; 93005; 93010; 94660; 99285-25; J1644

== ENCOUNTER 2017-07-30 10:07 | Day surgery (SDC) | payer OTHER ==
[2017-07-09 14:41] VITALS: BMI 37.8
[2017-07-30] MEDS ORDERED: VASOPRESSIN 20 UNITS/ML VIAL IV ONE (12:44)
[2017-07-30] MEDS ORDERED: PROPOFOL 20 ML ONE ×2 (12:59→13:15)
[2017-07-30] MEDS ORDERED: ceFAZolin SODIUM 1 GM VIAL IVPB ONE (13:10)
[2017-07-30] MEDS ORDERED: ceFAZolin SODIUM 1 GM VIAL ONE (13:13)
[2017-07-30] MEDS ORDERED: ACETAMINOPHEN 325 MG TABLET (FP) PO PRN (13:26)
[2017-07-30] MEDS ORDERED: ONDANSETRON 4 MG/2 ML VIAL IVPUSH PRN (13:26)
[2017-07-30] MEDS ORDERED: oxyCODONE HCL 5 MG TABLET PO PRN (13:26)
[2017-07-30] MEDS ORDERED: ACETAMINOPHEN 1000 MG/100 ML VIAL (NON FORMULARY) IVPB ONE ×2 (14:19→14:49)
[2017-07-30 15:34] VITALS: TEMP 97.8
[2017-07-30] MEDS ORDERED: IBUPROFEN 800 MG/8 ML IJ IVPB SCH (18:00)
[2017-07-30 19:03] VITALS: BP 138/88; PULSE 65
--- NOTE | 2017-08-02 09:42 | OP ---
DATE OF OPERATION: 07/30/2017 PREOPERATIVE DIAGNOSES: Stress urinary incontinence and hypermobile urethra. POSTOPERATIVE DIAGNOSES: Stress urinary incontinence and hypermobile urethra. PROCEDURE: Suburethral sling placement and cystoscopy. ANESTHESIA: General. SURGEON: Michael Martins MD ESTIMATED BLOOD LOSS: Minimal. DRAINS: A Keith catheter. PREOPERATIVE INDICATIONS: The patient is a 57-year-old female with classic stress urinary incontinence confirmed on the history, exam and testing. She comes to the OR for a suburethral sling placement. OPERATION: The patient was brought to the OR, placed on the table in the supine position, given general anesthesia and IV antibiotics and placed in the modified lithotomy position. The groin was prepped and draped sterilely. Timeout was performed. A Keith catheter was placed. The mid portion of the urethra was identified and marked with a marking pen. Pitressin was injected into the vaginal mucosa and then an incision was made over the mid portion of the urethra. The vaginal mucosa was sharply dissected off the periurethral tissues in a lateral fashion. The bladder was emptied. Under fingertip control a trocar was passed with the sling attached through the incision towards the obturator canal. The trocar was rotated and the sling was deployed. This was done on the right side and similarly on the left side. Cystoscopy was then performed which revealed no evidence of any perforation or sling material. Both UOs were seen with clear efflux. No other bladder findings were seen. The scope was removed with a full bladder. The sling was appropriately tightened resting without tension on the mid portion of the urethra flat. Excess suture was removed and the incision was closed with 3-0 Vicryl suture. Keith catheter and vaginal packing were left in place. The patient was woken up. MICHAEL MARTINS M.D. [id number]
== END 2017-07-30 16:30 | disposition home or self-care (01) ==
LOC: JASU-SURG 10:07
PROVIDERS: ATTEND Urology
PROC: 0TSD4ZZ Reposition Urethra, Percutaneous Endoscopic Approach (ICD-10-PCS; principal; 2017-07-30 12:00)
DX: N39.3 Stress incontinence (female) (male) (principal); N36.41 Hypermobility of urethra
CPT/HCPCS: 82962; 94760; J0131

== ENCOUNTER 2019-12-24 12:30 | Emergency (ER) | payer OTHER ==
[2019-12-24 12:35] VITALS: BP 123/82; PULSE 92; TEMP 98.4; BMI 33.0
--- OUTSIDE RECORDS SUMMARY | 2019-12-24 12:51 | XMS ---
:1960 Author Organization [facility] Care Team Providers Name Role Phone Alla Evanslandon Unavailable Unavailable GRAVES KHANH W Unavailable Unavailable Ash Weber Unavailable [phone] ED STAFF PHYSICIAN, STAFF Unavailable Unavailable Jade Jara MD Unavailable Unavailable Brea Jara MD Unavailable Unavailable Brea Jara MD Unavailable Unavailable Brea Jara MD Unavailable Unavailable Brea Jara MD Unavailable Unavailable Brea Jara MD Unavailable Unavailable Brea Jara MD Unavailable Unavailable Brea Jara MD Unavailable Unavailable Brea Jara MD Unavailable Unavailable Brea Jara MD Unavailable Unavailable Brea Jara MD Unavailable Unavailable Brea Jara MD Unavailable Unavailable Brea Jara MD Unavailable Unavailable Brea Jara MD Unavailable Unavailable Brea Jara MD Unavailable Unavailable LALO Dunlap Unavailable Unavailable HHCCC Unavailable Unavailable CRISTOBAL TREVIZO Unavailable Unavailable Jah Unavailable Unavailable Jah Unavailable Unavailable Jah Unavailable Unavailable Jah Unavailable Unavailable Jah Unavailable Unavailable Jah Unavailable Unavailable Jah Unavailable Unavailable Jah Unavailable Unavailable Jah Unavailable Unavailable Jah Unavailable Unavailable Jah Unavailable Unavailable Jah Unavailable Unavailable Jah Unavailable Unavailable Jah Unavailable Unavailable Jah Unavailable Unavailable ZUNASSIGNED Unavailable Unavailable LEFLAURIEITZ, CARLOS Unavailable Unavailable Re-disclosure Warning The records that you are about to access may contain information from federally- assisted alcohol or drug abuse programs. If such information is present, then the following federally mandated warning applies: This information has been disclosed to you from records protected by federal confidentiality rules (42 CFR part 2). The federal rules prohibit you from making any further disclosure of this information unless further disclosure is expressly permitted by the written consent of the person to whom it pertains or as otherwise permitted by 42 CFR part 2. A general authorization for the release of medical or other information is NOT sufficient for this purpose. The Federal rules restrict any use of the information to criminally investigate or prosecute any alcohol or drug abuse patient.The records that you are about to access may contain highly sensitive health information, the redisclosure of which is protected by Article 27-F of the [facility] Public Health law. If you continue you may haveaccess to information: Regarding HIV / AIDS; Provided by facilities licensed or operated by the [facility] Office of Mental Health; or Provided by the [facility] Office for People With Developmental Disabilities. If such information is present, then the following [facility] mandated warning applies: This information has been disclosed to you from confidential records which are protected by state law. State law prohibits you from making any further disclosure of this information without the specific written consent of the person to whom it pertains, or as otherwise permitted by law. Any unauthorized further disclosure in violation of state law may result in a fine or long-term sentence or both. A general authorization for the release of medical or other information is NOT sufficient authorization for further disclosure. Encounters Encounter Providers Location Date Indications Data Source(s ) Emergency Attender: JUAN LUIS Goncalves 12/23/2019 [facility]: 04:29:00 PM [facility] STAFF ED STAFF EDT - PHYSICIANAdmitter: 12/24/2019 JUAN LUIS CASSIDY 03:07:00 AM WReferrer: EDT ZUNASSIGNED Patient discharged. Outpatient Attender: [id number] [facility] 12/14/2019 05:13:33 PM GSI ([facility] EDT Collaborative) Patient admitted. Outpatient [address] 12/08/2019 12:00:00 eCW1 ([facility] KASEY AM EDT [facility] ) Outpatient Attender: Jamilah Goncalves 11/27/2019 09:28:00 [facility] Singhdmitter: AM EDT Medical C enter Jamilah Lintoner: Jamilah Calixtoh Outpatient [address] [place] 11/11/2019 12:00:00 eCW1 ([facility]) (TEL) [address] [place] 10/27/2019 12:00:00 eCW1 ([facility]T [facility]) Outpatient Attender: RAMANDEEP Goncalves 10/23/2019 08:58:00 [facility] AM EDT Medical Alessandra VALENZUELAdmitter: RAMANDEEP Weaverferrer: RAMANDEEP Dunlap Attender: Count Includes [facility] 10/23/2019 08:58:00 NEXTGEN ([facility] AM EDT - 10/23/2019 [facility] 08:58:00 AM EDT Center) Outpatient Attender: HD9 10/10/2019 12:28:14 GSI (Critical access hospital EDT [facility]) Patient admitted. Outpatient [address] [place] 09/29/2019 12:00:00 eCW1 ([facility]) (TEL) [address] [place] 09/18/2019 12:00:00 eCW1 ([facility]) Outpatient Attender: [id number] 09/09/2019 01:48:05 GSI (Critical access hospital EDT [facility]) Patient admitted. (TEL) [address] 09/04/2019 12:00:00 eCW1 ([facility] ED[facility]) (TEL) [address] 08/27/2019 12:00:00 eCW1 ([facility] AM EDT [facility]) (TEL) [address] 08/17/2019 12:00:00 eCW1 ([facility] AM EDT [facility]) 69 [facility] [address] 08/05/2019 12:00:00 eCW1 ([facility] AM EDT [facility]) 69 [facility] [address] 07/22/2019 12:00:00 eCW1 ([facility] AM EDT [facility]) [address] 07/07/2019 12:00:00 eCW1 ([facility] AM EDT [facility]) [address] 236 06/30/2019 12:00:00 eCW1 ([facility] AM EDT [facility]) Outpatient Attender: 05/29/2019 06:52:07 GSI ( [facility] HDSW9 [facility] Collaborative) Patient admitted. Outpatient Attender: SANTHOSH, 04/23/2019 06:00:00 DEMO ONLY [facility] CRISTOBALAdmitter: AM EST Health Ca re MYCHAL MCCONNELLeferrer: Radha orporation CRISTOBAL TREVIZO DEMO ONLY Outpatient Attender: [facility] 5T-LAB 04/17/2019 07:26:00 [facility] AM EST - 04/17/2019 [facility] 11:59:00 PM EST Patient discharged. [address] 236 04/09/2019 [facility]CW[facility] 12:[facility] AM EST [facility]) [address] 236 03/26/2019 eCW1 (S [facility] MP 12:00:00 AM EST [facility]) [address] 236 03/18/2019 eCW1 ([facility] 12:00:00 AM EST [facility]) [address] 236 03/17/2019 eCW1 ([facility] 12:00:00 AM EST [facility]) [address] 236 03/10/2019 eCW1 ([facility] 12:00:00 AM EST [facility]) Outpatient Attender: Jamilah Goncalves 02/12/2019 [facility] Franciscodmitter: 09:05:00 AM EST [facility] Osamaddie Pazeferrer: Jamilah Tyson [address] 236 02/10/2019 eCW1 ([facility] 12:00:00 AM EST [facility]) [address] 236 02/10/2019 eCW1 (S [facility]int [facility] 12:00:00 AM EST [facility]) [address] 236 01/15/2019 eCW1 (S [facility]int [facility] 12:00:00 AM EST [facility]) [address] 236 01/13/2019 eCW1 (S aint [facility] Street [facility] 12:00:00 AM EST [facility]) [address] 236 12/22/2018 eCW1 ([facility] 12:00:00 AM EDT [facility]) [address] 236 12/11/2018 eCW1 (S aint [facility] Street [facility] 12:00:00 AM EDT [facility]) [address] 236 12/11/2018 eCW1 ([facility] 12:00:00 AM EDT [facility]) [address] 236 11/11/2018 eCW1 (S aint [facility] Street [facility] 12:00:00 AM EDT [facility]) [address] 236 11/07/2018 eCW1 (S aint [facility] Street [facility] 12:00:00 AM EDT [facility]) Attender: [facility] 11/06/2018 LEISA N ([facility] 09:13:00 AM EDT [facility] 11/06/2018 Center) 09:13:00 AM EDT [address] 236 11/05/2018 eCW1 ([facility] 12:00:00 AM EDT [facility]) [address] 236 10/31/2018 eCW1 ([facility] 12:00:00 AM EDT [facility]) Immunizations Vaccine Date Status Description Data Source(s) IIV3. This is one of 12/08/2019 completed eCW1 ([facility] two codes replacing CVX 01:44:00 PM EDT edical Practice PC) 15, which is being retired. IIV3. This vaccine code 12/11/2018 completed eCW1 ([facility] is one of two which 01:15:00 PM EDT Medic al Practice PC) replace CVX 15, influenza, split virus. IIV3. This vaccine code 12/11/2018 completed eCW1 ([facility] is one of two which 01:15:00 PM EDT [facility]) replace CVX 15, influenza, split virus. IIV3. This vaccine code 12/11/2018 completed eCW1 ([facility] is one of two which 01:15:00 PM EDT [facility]) replace CVX 15, influenza, split virus. IIV3. This vaccine code 12/11/2018 completed eCW1 ([facility] is one of two which 01:15:00 PM EDT [facility]) replace CVX 15, influenza, split virus. IIV3. This vaccine code 12/11/2018 completed eCW1 ([facility] is one of two which 01:15:00 PM EDT [facility] PC) replace CVX 15, influenza, split virus. IIV3. This vaccine code 12/11/2018 completed eCW1 ([facility] is one of two which 01:15:00 PM EDT [facility] PC) replace CVX 15, influenza, split virus. IIV3. This vaccine code 12/11/2018 completed eCW1 ([facility] is one of two which 01:15:00 PM EDT [facility]) replace CVX 15, influenza, split virus. IIV3. This vaccine code 12/11/2018 completed eCW1 ([facility] is one of two which 01:15:00 PM EDT [facility] Practice PC) replace CVX 15, influenza, split virus. Medications Medication Brand Start Product Dose Route Administrative Pharmacy [facility] Indications Reaction Description Data Name Date Form Instructions Instructions Source(s) Amoxicillin Amoxic 11/11/ active 1 table t eCW1 875 MG / illin- 2019 ([facility] Clavulanate Pot 12:00: Godwin s 125 MG Oral Clavul 00 AM Medic al Tablet anate EDT Practice Amoxicillin 875-12 PC) -Pot 5 MG Clavulanate 875-125 MG Amoxicillin Amoxic 11/11/ 1.0 active Amoxici llin- eCW1 875 MG / illin- 2019 {tabl Pot ([facility] Clavulanate Pot 12:00: et} Clavulanate Genie 125 MG Oral Clavul 00 AM 875-125 MG Medical Tablet anate EDT Practice Amoxicillin 875-12 PC) -Pot 5 MG Clavulanate 875-125 MG Amoxicillin Amoxic 11/11/ active 1 table t eCW1 875 MG / in- 2018 ([facility] Clavulanate Pot 12:00: Godwin s 125 MG Oral Clavul 00 AM Medic al Tablet anate EDT Practice Amoxicillin 875-12 PC) -Pot 5 MG Clavulanate 875-125 MG Amoxicillin Amoxic 11/11/ 1.0 active Amoxici llin- eCW1 875 MG / in2018 {tabl Pot ([facility] Clavulanate Pot 12:00: et} Clavulanate [facility] 125 MG Oral Clavul 00 AM 875-125 MG Medical Tablet anate EDT Practice Amoxicillin 875-12 PC) -Pot 5 MG Clavulanate 875-125 MG Amoxicillin Amoxic 11/11/ active 1 table t eCW1 875 MG / in2018 ([facility] Clavulanate Pot 12:00: Godwin s 125 MG Oral Clavul 00 AM Medic al Tablet anate EDT Practice Amoxicillin 875-12 PC) -Pot 5 MG Clavulanate 875-125 MG Amoxicillin Amoxic 11/11/ active 1 table t eCW1 875 MG / in2018 ([facility] Clavulanate Pot 12:00: Godwin s 125 MG Oral Clavul 00 AM Medic al Tablet anate EDT Practice Amoxicillin 875-12 PC) -Pot 5 MG Clavulanate 875-125 MG Amoxicillin Amoxic 11/11/ 1.0 active Amoxici llin- eCW1 875 MG / illin- 2018 {tabl Pot ([facility] Clavulanate Pot 12:00: et} Clavulanate [facility] 125 MG Oral Clavul 00 AM 875-125 MG Medical Tablet anate EDT Practice Amoxicillin 875-12 PC) -Pot 5 MG Clavulanate 875-125 MG Amoxicillin Amoxic 11/11/ 1.0 active Amoxici llin- eCW1 875 MG / illin- 2018 {tabl Pot ([facility] Clavulanate Pot 12:00: et} Clavulanate [facility] 125 MG Oral Clavul 00 AM 875-125 MG Medical Tablet anate EDT Practice Amoxicillin 875-12 PC) -Pot 5 MG Clavulanate 875-125 MG Amoxicillin Amoxic 1.0 active Amoxici llin- eCW1 875 MG / illin2018 {tabl Pot ([facility] Clavulanate Pot 12:00: et} Clavulanate [facility] 125 MG Oral Clavul 00 AM 875-125 MG Medical Tablet anate EDT Practice Amoxicillin 875-12 PC) -Pot 5 MG Clavulanate 875-125 MG Amoxicillin Amoxic 1.0 active Amoxici llin- eCW1 875 MG / illin- 2019 {tabl Pot ([facility] Clavulanate Pot 12:00: et} Clavulanate [facility] 125 MG Oral Clavul 00 AM 875-125 MG Medical Tablet anate EDT Practice Amoxicillin 875-12 PC) -Pot 5 MG Clavulanate 875-125 MG Amoxicillin Amoxic .0 active Amoxici llin- eCW1 875 MG / illin- 2018 {tabl Pot ([facility] Clavulanate Pot 12:00: et} Clavulanate [facility]ie 125 MG Oral Clavul 00 AM 875-125 MG Medical Tablet anate EDT Practice Amoxicillin 875-12 PC) -Pot 5 MG Clavulanate 875-125 MG Amoxicillin Amoxic .0 active Amoxici llin- eCW1 875 MG / illin- 2018 {tabl Pot ([facility] Clavulanate Pot 12:00: et} Clavulanate [facility] 125 MG Oral Clavul 00 AM 875-125 MG Medical Tablet anate EDT Practice Amoxicillin 875-12 PC) -Pot 5 MG Clavulanate 875-125 MG Insurance Providers Payer name Policy type / Policy ID Covered Covered constitution party's Policy Plan Coverage type constitution party ID relationship to Germain Information germain [place]ICA[place] [id number] [place] [id number] O [facility] O [id number] 01 [id number] [facility] [id number] self [id number] [facility] 1 1 [employer] Lab Commercial [id number] 1 [id number] METHADONE [id number] SP [id number] MAINTENANCE PROGRAM Problems, Conditions, and Diagnoses Code Display Name Description Problem Type Effective Data Dates Source(s) E11.9 [id number] Type 2 diabetes Problem 11/11/2019 eCW1 ([place] nt mellitus without 12:00:00 AM [facility] complication, EDT Medical without Practice ) long-term current use of insulin E66.9 [id number] Obesity (BMI Problem 11/11/2019 eCW1 (S aint 30.0-34.9) 12:00:00 AM [facility] ) I10 [id number] Hypertension, Problem 09/29/2019 eCW1 ([facility] unspecified type 12:00:00 AM [facility] T Medical Practice ) D72.829 [id number] Leukocytosis, Problem 07/22/2019 eCW1 ([facility] unspecified type 12:00:00 AM [facility] ) D72.829 [id number] Leukocytosis, Problem 07/22/2019 eCW1 ([facility] unspecified type 12:00:00 AM [facility] Medical Practice ) Z79.4 [id number] FPC Problem 12/11/2018 eCW1 ([facility] (current) use of 12:00:00 AM [facility] insulin T Medical Practice ) Z79.4 [id number] FPC Problem 12/11/2018 eCW1 ([facility] (current) use of 12:00:00 AM [facility] insulin T Medical Practice ) M54.31 [id number] Sciatica, right Problem 11/11/2018 eC W1 ([facility] side 12:00:00 AM [facility] T Medical Practice ) M54.31 [id number] Sciatica, right Problem 11/11/2018 eC W1 ([facility] N28.9 Disorder of kidney and DISORDER OF Diagnosis 11/27/2019 S aint [facility]ie ureter, unspecified KIDNEY AND 09:28:00 AM [facility] [place] URETER, EDT Center UNSPECIFIED R10.9 Unspecified abdominal UNSPECIFIED Diagnosis 10/23/2019 Sa int [facility] pain ABDOMINAL PAIN 08:58:00 AM Medical EDT Center R63.4 Abnormal weight loss ABNORMAL WEIGHT Diagnosis 10/23/2019 [facility] LOSS 08:58:00 AM Medical EDT Center Z79.899 Other detention Encounter for Diagnosis 04/17/2019 [facility] [place] (current) drug therapy long-term 07:26:00 AM [place] (current) use of [facility] Hospital other medications F11.20 Opioid dependence, Opioid Diagnosis 04/17/2019 [place] uncomplicated dependence 07:26:00 AM [facility] E78.5 Hyperlipidemia, HLD Diagnosis 04/17/2019 [facility] [place] nt unspecified (hyperlipidemia) 07:26:00 AM [facility] Z12.31 Encounter for ENCNTR SCREEN Diagnosis 02/12/2019 [facility] Rosalinda [facility] screening mammogram MAMMOGRAM FOR 09:05:00 AM M edical for malignant neoplasm MALIGNANT EST Ce nter of breast NEOPLASM OF BREAST Surgeries/Procedures Procedure Description Date Indications Data Source(s) SARs- CoV-2 07/22/2019 eCW1 ([facility] ephs Serlogy(Covid-19) 12:00:00 AM EDT Medical Practice PC) antibody (IgG), Immunoassay Covid swab 07/22/2019 eCW1 ([facility] Ch[facility] ephs 12:00:00 AM EDT Medical Prac valeria PC) COLLECTION VENOUS BLOOD 07/22/2019 eCW1 ([facility] VENIPUNCTURE 12:00:00 AM EDT Medical Prac valeria PC) HANDLG&/OR CONVEY OF 07/22/2019 eCW1 (S arcadio Prescott SPEC FOR TR OFFICE TO 12:00:00 AM EDT Med ical Practice PC) LAB [facility]ip[facility] 04/17/2019 [facility] Heal 07:35:44 AM EST System - 04/17/2019 09:00:07 AM EST Results ID Date Data Source LIPID.[id number] 12/23/2019 07:17:00 PM EDT [facility] Name Value Range Interpretation Description Data Sup porting Code Source(s) Document(s ) Cholesterol -<200 <content Saint [Mass/volume] in styleCode="[facility] Serum or Plasma d">Cholesterol Medical </content>188 Center MG/DL<content styleCode="Saritha lics"> (-<200 MG/DL)</conten t> UNK > 60 Below low normal <content Saint styleCode="Amaya Genie d">HDL- Medical Cholesterol Center </content>41 MG/DL L<content styleCode="Saritha lics"> (> 60 MG/DL)</conten t> UNK < 100 Above high normal <content Saint styleCode="Amaya [facility] d">LDL-Cholest [facility] sussy Center </content>105 MG/DL H<content styleCode="Saritha lics"> (< 100 MG/DL)</conten t> Triglyceride < 150 Above high normal <content [facility] [Mass/volume] in styleCode="[facility] Serum or Plasma d">Triglycerid [facility] Center </content>209 MG/DL H<content styleCode="Saritha lics"> (< 150 MG/DL)</conten t> ID Date Data Source HematologyRou.[id number] 12/23/2019 07:17:[address] [place] [facility] 0400 Name Value Range Interpretation Description Data Sup porting Code Source(s) Document(s ) Leukocytes 4.4-11.0 <content [facility] [#/volume] in styleCode="Bold [facility] Blood by ">White Blood Medical Automated count Cell Count Center </content>9.07 KCUMM<content styleCode="Ital ics"> (4.4-11.0 KCUMM)</content > Erythrocyte mean 80.0-100 <content [facility] corpuscular .0 styleCode="Bold Genie volume [Entitic ">Mean Medical volume] by Corpuscular Center Automated count Volume </content>105.4 FL<content styleCode="Ital ics"> (80.0-100.0 FL)</content> Hematocrit 36.0-46. <content Saint [Volume 0 styleCode="Bold [facility]ie Fraction] of ">Hematocrit Medical Blood by </content>38.7 Center Automated count %<content styleCode="Ital ics"> (36.0-46.0 %)</content> Hemoglobin 12.3-16. Below low normal <content Saint [Mass/volume] in 0 styleCode="Bold [facility]ie Blood ">Hemoglobin Medical </content>11.7 Center G/DL L<content styleCode="Ital ics"> (12.3-16.0 G/DL)</content> Erythrocytes 4.0-5.1 Below low normal <content [facility] [#/volume] in styleCode="Bold [facility] Blood by ">Red Blood Medical Automated count Cell Count Center </content>3.67 MCUMM L<content styleCode="Ital ics"> (4.0-5.1 MCUMM)</content > Erythrocyte 11.5-14. Above high <content [facility] distribution 5 normal styleCode="Bold Genie width [Ratio] by ">Red Cell Medical Automated count Distribution Center Width </content>14.6 % H<content styleCode="Ital ics"> (11.5-14.5 %)</content> Erythrocyte mean 32.0-37. Below low normal <content [facility] corpuscular 0 styleCode="Bold [facility]ie hemoglobin ">Mean Corpus. Medical concentration Hgb Center [Mass/volume] by Concentration Automated count (MCHC) </content>30.2 G/DL L<content styleCode="Ital ics"> (32.0-37.0 G/DL)</content> Platelets 130-400 <content Saint [#/volume] in styleCode="Bold [facility] Blood by ">Platelet Medical Automated count Count Center </content>242 KCUMM<content styleCode="Ital ics"> (130-400 KCUMM)</content > Erythrocyte mean 26.0-34. <content [facility] corpuscular 0 styleCode="Bold Genie hemoglobin ">Mean Medical [Entitic mass] Corposcular Center by Automated Hemoglobin count </content>31.9 PG<content styleCode="Ital ics"> (26.0-34.0 PG)</content> UNK 0 <content Saint styleCode="Bold Genie ">Nucleated Red Medical Blood Cell Center </content>0.0 /100<content styleCode="Ital ics"> (0 /100)</content> Platelet mean 8.0-11.0 <content Saint volume [Entitic styleCode="Bold Genie volume] in Blood ">Mean Platelet Medical by Automated Volume Center count </content>10.5 FL<content styleCode="Ital ics"> (8.0-11.0 FL)</content> UNK 0.0 <content Saint styleCode="Bold Genie ">Nucleated Red Medical Blood Cell Center Count </content>0.00 KCUMM<content styleCode="Ital ics"> (0.0 KCUMM)</content > ID Date Data Source GFR(Creatinine).[id number] 12/23/2019 07:17:00 PM EDT [facility] 0-0400 Name Value Range Interpretation Code Description Data Reba rce(s) Supporting Document(s ) UNK > 60 Below low normal <content [facility] styleCode="Bold"> Medical Cent er EGFR </content>41 GFR L<content styleCode="Italic s"> (> 60 GFR)</content> ID Date Data Source Coagulation 12/23/2019 07:17:00 PM [facility] ical Center Rout.[id number] EDT Name Value Range Interpretation Description Data Sup porting Code Source(s) Document(s ) INR in 0.80-1.2 <content Saint Platelet poor 0 styleCode="Bold" [facility] plasma by >INR Medical Coagulation </content>0.93 Center assay #<content styleCode="Itali cs"> (0.80-1.20 #)</content> UNK 9.0-13.0 <content Saint styleCode="Bold" Genie >Protime Medical </content>10.3 Center SEC<content styleCode="Itali cs"> (9.0-13.0 SEC)</content> aPTT in 25.1-36. <content Saint Platelet poor 5 styleCode="Bold" Genie plasma by >Partial Medical Coagulation Thromboplastin Center assay Time </content>32.9 SEC<content styleCode="Itali cs"> (25.1-36.5 SEC)</content> ID Date Data Source CHMROUTINECCDA.[id number] 12/23/2019 07:17:00 PM EDT [facility] -0400 Name Value Range Interpretation Description Data Sup porting Code Source(s) Document(s ) UNK NEGATIVE <content Saint styleCode="Amaya Genie d">Acetone Medical </content>NEGA Center TIVE <content styleCode="Saritha lics"> (NEGATIVE )</content> Natriuretic < 125 Above high normal <content Saint peptide.B styleCode="Amaya Genie prohormone d">NT Pro BNP Medical N-Terminal </content>1310 Center [Mass/volume] PG/ML in Serum or H<content Plasma styleCode="Saritha lics"> (< 125 PG/ML)</conten t> ID Date Data Source CardiacMarkers.[id number] 12/23/2019 07:17:00 [facility] Name Value Range Interpretation Description Data Sup porting Code Source(s) Document(s ) Troponin < 0.034 <content Saint I.cardiac styleCode="Bold Genie [Mass/volume ">Troponin I Medical ] in Serum </content>< Center or Plasma 0.012 NG/ML<content styleCode="Ital ics"> (< 0.034 NG/ML)</content > ID Date Data Source [facility].[id number] 12/23/2019 07:17:00 PM EDT [facility] Name Value Range Interpretation Description Data Sup porting Code Source(s) Document(s ) Potassium 3.5-5.3 <content [facility] [Moles/volume] styleCode="Amaya Genie in Serum or d">Potassium Medical Plasma </content>4.9 Center MEQ/L<content styleCode="Saritha lics"> (3.5-5.3 MEQ/L)</conten t> Sodium 137-145 <content [facility] [Moles/volume] styleCode="Amaya Genie in Serum or d">Sodium Medical Plasma </content>142 Center MEQ/L<content styleCode="Saritha lics"> (137-145 MEQ/L)</conten t> Creatinine 0.5-1.3 Above high normal <content [facility] [Mass/volume] styleCode="Amaya Genie in Serum or d">Creatinine Medical Plasma </content>1.4 Center MG/DL H<content styleCode="Saritha lics"> (0.5-1.3 MG/DL)</conten t> UNK 7-17 Above high normal <content [facility] styleCode="Amaya Genie d">BUN Medical </content>22 Center MG/DL H<content styleCode="Saritha lics"> (7-17 MG/DL)</conten t> Chloride 98-107 <content [facility] [Moles/volume] styleCode="Amaya Genie in Serum or d">Chloride Medical Plasma </content>103 Center MEQ/L<content styleCode="Saritha lics"> (98-107 MEQ/L)</conten t> Carbon 22-30 Above high normal <content [facility] dioxide, total styleCode="Amaya Genie [Moles/volume] d">Carbon Medical in Serum or Dioxide Center Plasma </content>35 MEQ/L H<content styleCode="Saritha lics"> (22-30 MEQ/L)</conten t> Calcium 8.4-10.2 <content [facility] [Mass/volume] styleCode="Amaya Genie in Serum or d">Calcium Medical Plasma </content>8.8 Center MG/DL<content styleCode="Saritha lics"> (8.4-10.2 MG/DL)</conten t> Glucose 74-106 Above high normal <content [facility] [Mass/volume] styleCode="Amaya Connellys in Serum or d">Glucose Medical Plasma </content>130 Center MG/DL H<content styleCode="Saritha lics"> (74-106 MG/DL)</conten t> UNK > 60 Below low normal <content [facility] styleCode="Amaya Connellys d">EGFR Medical </content>41 Center GFR L<content styleCode="Saritha lics"> (> 60 GFR)</content> ID Date Data Source [id number] 07/22/2019 01:03:00 PM EDT [facility] Name Value Range Interpretation Code Description Data Reba rce(s) Supporting Document(s ) COV2 [facility] This lab was ordered by FARHAD Mcfadden RAC,PC and reported by [facility]. ID Date Data Source [id number] 05/27/2018 09:43:00 AM EDT [facility] System Name Value Range Interpretation Description Data Source(s ) Supporting Code Document(s ) Pregnanc Negative Normal (applies to Test [facility] non-numeric Urine, [facility] ne,Visib results) Visibility ilityCol Color Complete orComple te This test can detect HCG urine concentra tion of 25mIU/ml or greater. Negative result at 4 minute reading does not rule out ea rly . If clinically indicated, serum quantitative HCG test should be ordered. ID Date Data Source [id number] 05/27/2018 09:43:00 AM EDT [facility] Name Value Range Interpretation Description Data Sup porting Code Source(s) Document(s ) Color YELLOW Normal (applies Color [facility] to non-numeric Health results) System Appearance of CLEAR Normal (applies Urine [facility] Urine to non-numeric Appearance Health results) System Specific gravity 1.010 Normal (applies Urine Specific [facility] of Urine to non-numeric [facility] results) System pH.. 7.0 Normal (applies pH.. [facility] {pH_units} to non-numeric Health results) System BilirubinUrine NEGATIVE Normal (applies Bilirubin [facility] to non-numeric Urine [facility] results) System Urobilinogen 0.2 mg/dL Normal (applies Urobilinogen [facility] [Mass/volume] in to non-numeric UA [facility] Urine results) System Glucose,UA NEGATIVE Normal (applies Glucose, UA [facility] to non-numeric Health results) System Protein 30 mg/dl Normal (applies Protein [facility] [Mass/volume] in to non-numeric Health Serum or Plasma results) System UrineBlood NEGATIVE Normal (applies Urine Blood [facility] to non-numeric Health results) System Ketones NEGATIVE Normal (applies Ketones [facility] [Mass/volume] in to non-numeric Health Urine results) System Leukocyte NEGATIVE Normal (applies Leukocyte [facility] esterase to non-numeric Esterase Health [Units/volume] results) Concentration System in Urine Nitrate+Nitrite NEGATIVE Normal (applies Nitrite [facility] [Mass/volume] in to non-numeric Health Unspecified results) System specimen ID Date Data Source [id number] 05/27/2018 09:43:00 AM EDT [facility] Name Value Range Interpretation Description Data Sup porting Code Source(s) Document(s ) Erythrocytes 4.59 Normal (applies RBC Count [facility] [#/volume] in {10^6_uL to non-numeric Health Blood by } results) System Automated count Leukocytes 9.2 Normal (applies WBC Count [facility] [#/volume] in {10^3_uL to non-numeric Health Unspecified } results) System specimen by Automated count Hemoglobin 14.7 Normal (applies Hemoglobin [facility] [Mass/volume] in {gm/dL} to non-numeric Health Blood results) System Erythrocyte mean 31.3 Below low normal [facility] corpuscular {gm/dL} Health hemoglobin System concentration [Mass/volume] by Automated count Erythrocyte mean 102.2 fl Above high MCV [facility] corpuscular normal Health volume [Entitic System volume] by Automated count Hematocrit 46.9 % Above high Hematocrit [facility] [Volume normal Health Fraction] of System Blood Erythrocyte mean 32.0 pg Normal (applies MCH [facility] corpuscular to non-numeric Health hemoglobin results) System [Entitic mass] by Automated count Platelets 242 Normal (applies Platelet Count [facility] [#/volume] in {10^3_uL to non-numeric Health Plasma by } results) System Automated count Erythrocyte 14.7 % Above high RDW-CV [facility] distribution normal Health width [Entitic System volume] by Automated count Platelet mean 10.8 fl Above high MPV [facility] volume [Entitic normal Health volume] in Blood System by Automated count Neutrophils 5.8 Normal (applies Neutrophil # [facility] [#/volume] in {10^3_uL to non-numeric Health Body fluid } results) System Eosinophils 0.18 Normal (applies Eosinophil # [facility] [#/volume] in {10^3_uL to non-numeric Health Blood } results) System Monocytes 0.8 Normal (applies Monocyte # [facility] [#/volume] in {10^3_uL to non-numeric Health Blood by Manual } results) System count Basophils 0.04 Normal (applies Basophil # [facility] [#/volume] in {10^3_uL to non-numeric Health Blood by } results) System Automated count Lymphocyte 2.3 Normal (applies Lymphocyte # [facility] percent {10^3_uL to non-numeric Health differential } results) System count (procedure) Monocytes/100 8.9 % Normal (applies Monocyte % [facility] leukocytes in to non-numeric Health Blood results) System Neutrophils/100 63.5 % Normal (applies Neutrophil % [facility] marcia leukocytes in to non-numeric Health Blood by results) System Automated count Eosinophils/100 2.0 % Normal (applies Eosinophil % [facility] marcia leukocytes in to non-numeric Health Unspecified results) System specimen Lymphocytes 24.8 % Normal (applies Lymphocyte % [facility] [#/volume] in to non-numeric Health Blood by results) System Automated count ImmatureGranuloc 0.4 % Normal (applies Immature [facility] ytes% to non-numeric Granulocytes % Health results) System Basophils/100 0.4 % Normal (applies Basophil % [facility] leukocytes in to non-numeric Health Unspecified results) System specimen by Manual count NRBC# 0.00 Below low normal NRBC # [facility] {10^3_uL Health } System Nucleated 0.0 Normal (applies NRBC % [facility] erythrocytes {/100_WB to non-numeric Health [#/volume] in C} results) System Body fluid ImmatureGranuloc 0.04 Normal (applies Immature [facility] ytes# {10^3_uL to non-numeric Granulocytes # Health } results) System ID Date Data Source [id number] 05/27/2018 09:43:00 AM EDT [facility] Name Value Range Interpretation Description Data Sup porting Code Source(s) Document(s ) Sodium 140 Normal (applies Sodium, Serum [facility] [Moles/volume] in mmol/L to non-numeric Health Serum or Plasma results) System Carbon dioxide, 35.0 Above high CO2, Serum [facility] total mmol/L normal Health [Moles/volume] in System Serum or Plasma Potassium 5.5 Above high Potassium, [facility] [Mass/volume] in mmol/L normal Serum Health Serum or Plasma System Chloride 98 Normal (applies Chloride, [facility] [Moles/volume] in mmol/L to non-numeric Serum Health Serum or Plasma results) System Urea nitrogen 17 Normal (applies Blood Urea [facility] [Mass/volume] in mg/dl to non-numeric Nitrogen, Health Serum or Plasma results) Serum System Glucose 84 Normal (applies Glucose, [facility] [Mass/volume] in mg/dL to non-numeric Serum Health Serum or Plasma results) System TotalProtein 7.4 Normal (applies Total Protein [facility] mg/dl to non-numeric Health results) System Creatinine 1.20 Normal (applies Creatinine, [facility] [Mass/volume] in mg/dl to non-numeric Serum Health Serum or Plasma results) System Bilirubin.total 0.2 Normal (applies Bilirubin, [facility] [Mass/volume] in mg/dl to non-numeric Serum Total Health Serum or Plasma results) System Alkaline 96 Normal (applies Alkaline [facility] phosphatase {IU/L} to non-numeric Phosphatase, Health isoenzymes results) Serum System [Enzymatic activity/volume] in Serum or Plasma by Heat stability Albumin 4.1 Normal (applies Albumin, [facility] [Mass/volume] in {gm/dl} to non-numeric Serum Health Serum or Plasma results) System DirectBilirubin 0.1 Normal (applies Direct [facility] mg/dl to non-numeric Bilirubin Health results) System Aspartate 20 Normal (applies Aspartate [facility] aminotransferase {IU/L} to non-numeric Transaminase, Heal th [Enzymatic results) Serum System activity/volume] in Serum or Plasma by With P-5'-P Alanine 10 Normal (applies Alanine [facility] aminotransferase {IU/L} to non-numeric Aminotransfer Heal th [Enzymatic results) ase, Serum System activity/volume] in Serum or Plasma I.Phosphorus 3.7 Normal (applies I. Phosphorus [facility] mg/dl to non-numeric Health results) System Calcium 9.9 Normal (applies Calcium, [facility] [Mass/volume] in mg/dl to non-numeric Total Serum Health Serum or Plasma results) System A/GRatio 1.24 Normal (applies A/G Ratio [facility] to non-numeric Health results) System Anion gap in Serum 7.00 Below low normal Anion Gap [facility] or Plasma mmol/L Health System Urate 7.8 Above high Uric Acid, [facility] [Mass/volume] in mg/dl normal Serum Health Serum or Plasma System Glomerular 45.78 Normal (applies GFR [facility] filtration to non-numeric Health rate/1.73 sq results) System M.predicted [Volume Rate/Area] in Serum or Plasma by Creatinine-based formula (CKD-EPI) eGFR will provide clinicians with a more accurate indicator of renal function then the serum creatinine. The eGFR is automa tically calculated from an empiric formula (endorsed by the [employer] ion) which incorporates age, sex, and race.Clinicians may notice surprisingly low GFR's with serum creatinine valueswithin normal range- particularly in elderly wo men (with low muscle mass).In the hospital setting, the eGFR should add an element of safety in drug dosing, in assessing the risk of IV contrast administration, and in assessing vascular risk.The NKF staging system is as follows:Normal: eGFR >90 with no kidney markersStage 1: eGFR >90 with kidney markers*Stage 2: eGFR 60- 89Stage 3: eGFR 30-59Stage 4: eGFR 15-29Stage 5: eGFR <15 (usually requir ing dialysis)*Markers include: Proteinuria, Hematuria, abnormal imaging-studies, or other blood or urine test abnormalities ID Date Data Source [id number] 05/27/2018 09:43:00 AM EDTheresa howell System Name Value Range Interpretation Description Data Sup porting Code Source(s) Document(s ) Triglyceride 334 Above high normal Triglycerides, [facility] [Mass/volume] mg/dl Serum Health in Serum or System Plasma Optimal = < 100 mg/dLBoderline High = 15 0 - 199 mg/dLHigh = 200 - 499 mg/dLVery High = > 500 mg/dL Cholesterol in HDL 38.0 mg/dL Normal (applies HDL Cholestero l, [facility] [Mass/volume] in to non-numeric Serum Health S ystem Serum or Plasma results) Cholesterol 196 mg/dl Normal (applies Cholesterol, Serum [facility] [Mass/volume] in to non-numeric Health S ystem Serum or Plasma results) <200 mg/dL = [id number] - 239 md/dL = Borderline>240 mg/dL = High Risk Cholesterol in VLDL 66.8 Normal (applies to VLDL, Serum [facility] [Mass/volume] in non-numeric Health Syst em Serum or Plasma results) Cholesterol in LDL 91.2 mg/dL Normal (applies to Low Density [facility] [Mass/volume] in non-numeric Lipoprotein, Health S ystem Serum or Plasma results) Calculated OPTIMAL: LESS THAN 100 mg/dLNEAR OPTIMAL : 100 - 129 mg/dLBODERLINE HIGH: 130 - 150 mg/dL CHDRisk 5.16 Normal (applies to non-numeric CHD Risk [facility] results) ID Date Data Source [id number] 05/27/2018 09:43:00 AM EDTheresa howell System Name Value Range Interpretation Description Data Source(s ) Supporting Code Document(s ) Reagin Ab Non-react Normal (applies to RPR. [facility] [Presence] rosas non-numeric Health System in Serum by results) RPR ID Date Data Source [id number] 05/27/2018 09:48:00 AM EDT [facility] Name Value Range Interpretation Description Data Sup porting Code Source(s) Document(s ) Quanti NegativeNegative Normal (applies Quantiferon-T [facility] feron- test result. M. to non-numeric B Gold. Health TBGold tuberculosis results) System . complex infectionunlikely. NIL 0.27 {IU/mL} Normal (applies NIL [facility] to non-numeric Health results) System Mitoge 9.12 {IU/mL} Normal (applies Mitogen-NIL [facility] n-NIL to non-numeric Health results) System TB2-NI Less than 0.00 The Normal (applies TB2-NIL Kerwin marcia L Nil tube value to non-numeric Health reflects the results) System background interferongamma immune response of the patient's blood sample.This value has been subtracted from the patient'sdisplayed TB and Mitogen results.Lower than expected results with the Mitogen tube prevent false-negative Quantiferon readings bydetecting a patient with a potential immunesuppressive condition and/or suboptimal pre-analyticalspeci men handling.The TB1 Antigen tube is coated with theM. tuberculosis-specif ic antigens designed to elicitresponses from TB antigen primed CD4+ helperT-lymphocytes .The TB2 Antigen tube is coated with theM. tuberculosis-specif ic antigens designed to elicitresponses from TB antigen primed CD4+ helper and CD8+cytotoxic T-lymphocytes.For additional information, please refer [email or web address](This link is being provided for informational/educa tional purposes only.)Test Performed at:[facility] [employer], [place], [place] [address]TcratvayGurpreet Boswell M.D. TB1-NI Less than 0.00 Normal (applies TB1-NIL [facility] L to non-numeric Health results) System ID Date Data Source [id number] 04/23/2019 01:31:32 AM EST [facility] Name Value Range Interpretation Description Data Source(s ) Supporting Code Document(s ) Reagin Ab Non-react Normal (applies to RPR. [facility] [Presence] rosas non-numeric Health System in Serum by results) RPR ID Date Data Source [id number] 04/23/2019 01:31:32 AM EST [facility] Name Value Range Interpretation Description Data Sup porting Code Source(s) Document(s ) Color YELLOW Normal (applies Color [facility] to non-numeric Health results) System Specific gravity < 1.005 Normal (applies Urine Specific [facility] of Urine to non-numeric [facility] results) System Appearance of CLEAR Normal (applies Urine [facility] Urine to non-numeric Appearance Health results) System pH.. 7.0 Normal (applies pH.. [facility] {pH_units} to non-numeric Health results) System Glucose,UA NEGATIVE Normal (applies Glucose, UA [facility] to non-numeric Health results) System Protein TRACE Normal (applies Protein [facility] [Mass/volume] in to non-numeric Health Serum or Plasma results) System Urobilinogen 0.2 mg/dL Normal (applies Urobilinogen [facility] [Mass/volume] in to non-numeric UA Health Urine results) System BilirubinUrine NEGATIVE Normal (applies Bilirubin [facility] to non-numeric Urine Health results) System Nitrate+Nitrite NEGATIVE Normal (applies Nitrite [facility] [Mass/volume] in to non-numeric Health Unspecified results) System specimen Ketones NEGATIVE Normal (applies Ketones UA [facility] [Mass/volume] in to non-numeric Health Urine results) System Leukocytes 2 {/HPF} Normal (applies White Blood [facility] [#/volume] in to non-numeric Cells Health Unspecified results) System specimen by Automated count Leukocyte NEGATIVE Normal (applies Leukocyte [facility] esterase to non-numeric Esterase Health [Units/volume] results) Concentration System in Urine RedBloodCells 1 {/HPF} Normal (applies Red Blood [facility] to non-numeric Cells Health results) System Bacteria 3+ Abnormal Bacteria [facility] [Presence] in (applies to Health Unspecified non-numeric System specimen results) Yeast [Presence] 3 {/HPF} Normal (applies Yeast-Budding [facility] in Unspecified to non-numeric Health specimen by results) System Organism specific culture Epithelial cells 15 {/HPF} Normal (applies Epithelial [facility] [Presence] in to non-numeric Cells Health Unspecified results) System specimen by Wet preparation UrineBlood NEGATIVE Normal (applies Urine Blood [facility] to non-numeric Health results) System ID Date Data Source [id number] 04/23/2019 01:31:32 AM EST [facility] Name Value Range Interpretation Description Data Sup porting Code Source(s) Document(s ) Leukocytes 9.3 Normal (applies WBC Count [facility] [#/volume] in {10^3_uL to non-numeric Health Unspecified } results) System specimen by Automated count Erythrocytes 5.06 Normal (applies RBC Count [facility] [#/volume] in {10^6_uL to non-numeric Health Blood by } results) System Automated count Hemoglobin 16.4 Above high Hemoglobin [facility] [Mass/volume] in {gm/dL} normal Health Blood System Hematocrit 51.7 % Above high Hematocrit [facility] [Volume normal Health Fraction] of System Blood Erythrocyte mean 102.2 fl Above high MCV [facility] corpuscular normal Health volume [Entitic System volume] by Automated count Erythrocyte mean 32.4 pg Normal (applies MCH [facility] corpuscular to non-numeric Health hemoglobin results) System [Entitic mass] by Automated count Erythrocyte mean 31.7 Below low normal MCHC [facility] corpuscular {gm/dL} Health hemoglobin System concentration [Mass/volume] by Automated count Erythrocyte 13.6 % Normal (applies RDW-CV [facility] distribution to non-numeric Health width [Entitic results) System volume] by Automated count Platelets 199 Normal (applies Platelet Count [facility] [#/volume] in {10^3_uL to non-numeric Health Plasma by } results) System Automated count Platelet mean 11.1 fl Above high MPV [facility] volume [Entitic normal Health volume] in Blood System by Automated count Monocytes 0.6 Normal (applies Monocyte # [facility] [#/volume] in {10^3_uL to non-numeric Health Blood by Manual } results) System count Eosinophils 0.10 Normal (applies Eosinophil # [facility] [#/volume] in {10^3_uL to non-numeric Health Blood } results) System Neutrophils 6.8 Normal (applies Neutrophil # [facility] [#/volume] in {10^3_uL to non-numeric Health Body fluid } results) System Basophils 0.03 Normal (applies Basophil # [facility] [#/volume] in {10^3_uL to non-numeric Health Blood by } results) System Automated count Neutrophils/100 72.8 % Normal (applies Neutrophil % [facility] mar[facility] leukocytes in to non-numeric Health Blood by results) System Automated count Lymphocyte 1.8 Normal (applies Lymphocyte # [facility] percent {10^3_uL to non-numeric Health differential } results) System count (procedure) Basophils/100 0.3 % Normal (applies Basophil % [facility] leukocytes in to non-numeric Health Unspecified results) System specimen by Manual count Monocytes/100 6.8 % Normal (applies Monocyte % [facility] leukocytes in to non-numeric Health Blood results) System Eosinophils/100 1.1 % Normal (applies Eosinophil % [facility] marcia leukocytes in to non-numeric Health Unspecified results) System specimen Lymphocytes 18.8 % Below low normal Lymphocyte % [facility] [#/volume] in Health Blood by System Automated count ImmatureGranuloc 0.2 % Normal (applies Immature [facility] ytes% to non-numeric Granulocytes % Health results) System Nucleated 0.0 Normal (applies NRBC % [facility] erythrocytes {/100_WB to non-numeric Health [#/volume] in C} results) System Body fluid ImmatureGranuloc 0.02 Normal (applies Immature [facility] ytes# {10^3_uL to non-numeric Granulocytes # Health } results) System NRBC# 0.00 Below low normal NRBC # [facility] {10^3_uL Health } System ID Date Data Source [id number] 04/23/2019 01:31:32 AM EST [facility] Name Value Range Interpretation Description Data Sup porting Code Source(s) Document(s ) Triglyceride 276 Above high normal Triglycerides, [facility] [Mass/volume] mg/dl Serum Health in Serum or System Plasma Optimal = < 100 mg/dLBoderline High = 15 0 - 199 mg/dLHigh = 200 - 499 mg/dLVery High = > 500 mg/dL Cholesterol 197 mg/dl Normal (applies Cholesterol, Serum [facility] [Mass/volume] in to non-numeric Health S ystem Serum or Plasma results) <200 mg/dL = [id number] - 239 md/dL = Borderline>240 mg/dL = High Risk Cholesterol in LDL 107.8 mg/dL Normal (applies Low Density [facility] [Mass/volume] in to non-numeric Lipoprotein, Healt h System Serum or Plasma results) Calculated OPTIMAL: LESS THAN 100 mg/dLNEAR OPTIMAL : 100 - 129 mg/dLBODERLINE HIGH: 130 - 150 mg/dL Cholesterol in HDL 34.0 mg/dL Normal (applies HDL Cholestero l, [facility] [Mass/volume] in to non-numeric Serum Health S te Serum or Plasma results) Cholesterol in VLDL 55.2 Normal (applies VLDL, Serum [facility] [Mass/volume] in to non-numeric Health S yste Serum or Plasma results) CHDRisk 5.79 Above high normal CHD Risk [facility] ID Date Data Source [id number] 04/23/2019 01:31:32 AM EST [facility] Name Value Range Interpretation Description Data Sup porting Code Source(s) Document(s ) Sodium 143 Normal (applies Sodium, Serum [facility] [Moles/volume] in mmol/L to non-numeric Health Serum or Plasma results) System Potassium 4.5 Normal (applies Potassium, [facility] [Mass/volume] in mmol/L to non-numeric Serum Health Serum or Plasma results) System Chloride 97 Below low normal Chloride, [facility] [Moles/volume] in mmol/L Serum Health Serum or Plasma System Carbon dioxide, 34.0 Above high CO2, Serum [facility] total mmol/L normal Health [Moles/volume] in System Serum or Plasma TotalProtein 7.3 Normal (applies Total Protein [facility] mg/dl to non-numeric Health results) System Glucose 59 Below low normal Glucose, [facility] [Mass/volume] in mg/dL Serum Health Serum or Plasma System Creatinine 1.30 Above high Creatinine, [facility] [Mass/volume] in mg/dl normal Serum Health Serum or Plasma System Urea nitrogen 15 Normal (applies Blood Urea [facility] [Mass/volume] in mg/dl to non-numeric Nitrogen, Health Serum or Plasma results) Serum System Alkaline 79 Normal (applies Alkaline [facility] phosphatase {IU/L} to non-numeric Phosphatase, [facility] isoenzymes results) Serum System [Enzymatic activity/volume] in Serum or Plasma by Heat stability Bilirubin.total 0.3 Normal (applies Bilirubin, [facility] [Mass/volume] in mg/dl to non-numeric Serum Total Health Serum or Plasma results) System DirectBilirubin 0.2 Normal (applies Direct [facility] mg/dl to non-numeric Bilirubin Health results) System Aspartate 22 Normal (applies Aspartate [facility] aminotransferase {IU/L} to non-numeric Transaminase, Heal th [Enzymatic results) Serum System activity/volume] in Serum or Plasma by With P-5'-P Albumin 4.2 Normal (applies Albumin, [facility] [Mass/volume] in {gm/dl} to non-numeric Serum Health Serum or Plasma results) System I.Phosphorus 3.4 Normal (applies I. Phosphorus [facility] mg/dl to non-numeric Health results) System Alanine 13 Normal (applies Alanine [facility] aminotransferase {IU/L} to non-numeric Aminotransfer Heal th [Enzymatic results) ase, Serum System activity/volume] in Serum or Plasma Urate 9.1 Above high Uric Acid, [facility] [Mass/volume] in mg/dl normal Serum Health Serum or Plasma System Calcium 9.8 Normal (applies Calcium, [facility] [Mass/volume] in mg/dl to non-numeric Total Serum Health Serum or Plasma results) System A/GRatio 1.35 Normal (applies A/G Ratio [facility] to non-numeric Health results) System Anion gap in Serum 12.00 Normal (applies Anion Gap [place] marcia or Plasma mmol/L to non-numeric Health results) System Glomerular 41.62 Normal (applies GFR [facility] to non-numeric Health rate/1.73 sq results) System M.predicted [Volume Rate/Area] in Serum or Plasma by Creatinine-based formula (CKD-EPI) eGFR will provide clinicians with a more accurate indicator of renal function then the serum creatinine. The eGFR is automa tically calculated from an empiric formula (endorsed by the [employer] ion) which incorporates age, sex, and race.Clinicians may notice surprisingly low GFR's with serum creatinine valueswithin normal range- particularly in elderly wo men (with low muscle mass).In the hospital setting, the eGFR should add an element of safety in drug dosing, in assessing the risk of IV contrast administration, and in assessing vascular risk.The NKF staging system is as follows:Normal: eGFR >90 with no kidney markersStage 1: eGFR >90 with kidney markers*Stage 2: eGFR 60- 89Stage 3: eGFR 30-59Stage 4: eGFR 15-29Stage 5: eGFR <15 (usually requir ing dialysis)*Markers include: Proteinuria, Hematuria, abnormal imaging-studies, or other blood or urine test abnormalities ID Date Data Source [id number] 04/23/2019 01:31:32 AM EST [facility] Name Value Range Interpretation Description Data Sup porting Code Source(s) Document(s ) Quantif NegativeNegative Normal (applies Quantiferon-T [facility]-TB test result. M. to non-numeric [facility]. [facility]. tuberculosis results) System complex infectionunlikely. NIL 0.02 {IU/mL} Normal (applies NIL [facility] to non-numeric Health results) System Mitogen 9.39 {IU/mL} Normal (applies Mitogen-NIL [facility] to non-numeric Health results) System TB2-NIL 0.00 {IU/mL} Normal (applies TB2-NIL [facility] to non-numeric [facility] results) System The Nil tube value reflects the backgrou nd interferongamma immune response of the patient's blood sample.This value has be en subtracted from the patient'sdisplayed TB and Mitogen results.Lower than expected results with the Mitogen tube prevent false-negative Quantiferon readings byde tecting a patient with a potential immunesuppressive condition and/or subop timal pre-analyticalspecimen handling.The TB1 Antigen tube is coated with theM. tuberc ulosis-specific antigens designed to elicitresponses from TB antigen primed C D4+ helperT-lymphocytes.The TB2 Antigen tube is coated with theM. tuberculosis-specif ic antigens designed to elicitresponses from TB antigen primed CD4+ helper and CD8+cy totoxic T-lymphocytes.For additional information, please refer [email or web address] [email or web address]/[email or web address](This link is being provided for informational/educ ational purposes only.)Test Performed at:[facility], [place], [place] [address]BljphubcGurpreet Boswell M.D. TB1-NIL 0.00 {IU/mL} Normal (applies to TB1-NIL [facility] non-numeric results) Procedure Social History Code Duration Value Status Description Data Source(s ) Smoking 12/23/2019 Daily Smoker completed Daily Smoker [facility] 05:[facility]:00 PM EDT [facility] enter Smoking 12/23/2019 Daily Smoker completed Daily [facility] 04:[facility]:00 PM EDT [facility] enter Smoking 12/08/2019 Current Smoker completed [facility] Smoking 11/11/2019 Current Smoker completed Current Sm[facility] ( [facility] Smoking 09/29/2019 Current Smoker completed Current Smoker [facility]CW1 ( [facility]) Smoking 09/29/2019 Current Smoker completed Current Smoker eCW1 ( [facility]) Smoking 07/22/2019 Current Smoker completed Current Smoker eCW1 ( [facility] AM [facility]) Smoking 07/22/2019 Current Smoker completed Current Smoker eCW1 ( [facility] AM [facility]) Smoking 07/22/2019 Current Smoker completed Current Smoker eCW1 ( [facility] AM [facility]) Smoking 07/22/2019 Current Smoker completed Current Smoker eCW1 ( [facility] 12:[facility] AM [facility]) Vital Signs ID Date Data Source UNK Name Value Range Interpretation Code Description Data Source(s) Body temperature 36.460584 36.837109 [facility] Respiratory rate 16 /min 16 /min [facility] Oxygen saturation 98 % 98 % [facility] Arterial blood [facility] by Pulse oximetry Heart rate 72 /min 72 /min [facility] Diastolic blood 86 mm[Hg] 86 mm[Hg] [facility] Systolic blood 137 mm[Hg] 137 mm[Hg] [facility] Body temperature 36.239126 36.433138 [facility] Respiratory rate 16 /min 16 /min [facility] Oxygen saturation 95 % 95 % [facility] blood [facility] by Pulse oximetry Heart rate 69 /min 69 /min [facility] Diastolic blood 85 mm[Hg] 85 mm[Hg] [facility] pressure [facility] Systolic blood 141 mm[Hg] 141 mm[Hg] [facility] Body temperature 37.130129 37.066909 [facility] Respiratory rate 16 /min 16 /min [facility] Oxygen saturation 95 % 95 % [facility] J [facility]seph[facility] in Arterial blood [facility] by Pulse oximetry Heart rate 74 /min 74 /min [facility] Diastolic blood 84 mm[Hg] 84 mm[Hg] [facility] pressure [facility] Systolic blood 136 mm[Hg] 136 mm[Hg] [facility] Body temperature 37.991536 37.469117 [facility] Respiratory rate 18 /min 18 /min [facility] Oxygen saturation 96 % 96 % [facility] blood [facility] by Pulse oximetry Heart rate 78 /min 78 /min [facility] Diastolic blood 89 mm[Hg] 89 mm[Hg] [facility] pressure [facility] Systolic blood 150 mm[Hg] 150 mm[Hg] [facility] Diastolic blood 87 mm[Hg] 87 mm[Hg] eCW1 ([facility] Systolic blood 130 mm[Hg] 130 mm[Hg] eCW1 ([facility]) Oxygen saturation 98 % 98 % eCW1 (S aint in Arterial blood [facility] by Pulse oximetry Practic e PC) Body temperature 98.8 [degF] 98.8 [degF] [facility]CW1 ( [facility] Respiratory rate 16 /min 16 /min eCW1 ( [facility]) Heart rate 62 /min 62 /min [facility]CW1 ([facility] Body mass index 33.78 kg/m2 33.78 kg/m2 eCW1 (S aint (BMI) [Ratio] [facility]) Body weight 173 [lb_av] 173 [lb_av] eCW1 ([facility]) Body height [in_i] eCW1 ([facility]) Diastolic blood 89 mm[Hg] 89 mm[Hg] eCW1 ([place] [facility]) Systolic blood 136 mm[Hg] 136 mm[Hg] eCW1 ([place] [facility]) Oxygen saturation 98 % 98 % eCW1 (S aint in Arterial blood [facility] by Pulse oximetry Practic e PC) Body temperature 98.5 [degF] 98.5 [degF] eCW1 ( [facility]) Respiratory rate 18 /min 18 /min eCW1 ( [facility] Heart rate 81 /min 81 /min eCW1 ([facility]) Body mass index 33.59 kg/m2 33.59 kg/m2 eCW1 (S aint (BMI) [Ratio] [facility]) Body weight 172 [lb_av] 172 [lb_av] eCW1 ([facility]) Body height [in_i] eCW1 ([facility]) Diastolic blood 81 mm[Hg] 81 mm[Hg] eCW1 ([facility] nt pressure [facility]) Systolic blood 134 mm[Hg] 134 mm[Hg] eCW1 ([facility] pressure [facility]) Body temperature 98.4 [degF] 98.4 [degF] eCW1 ( [facility]) Respiratory rate 18 /min 18 /min eCW1 ( [facility] Heart rate 73 /min 73 /min eCW1 ([facility]) Body mass index 33.98 kg/m2 33.98 kg/m2 eCW1 (S aint (BMI) [Ratio] [facility]) Body weight 174 [lb_av] 174 [lb_av] eCW1 ([facility]) Body height [in_i] eCW1 ([facility]) Diastolic blood 85 mm[Hg] 85 mm[Hg] eCW1 ([place] [facility]) Systolic blood 140 mm[Hg] 140 mm[Hg] eCW1 ([facility]) Body temperature 98.3 [degF] 98.3 [degF] eCW1 ( [facility]) Respiratory rate 18 /min 18 /min eCW1 ([facility]) Body mass index 36.32 kg/m2 36.32 kg/m2 eCW1 (S aint (BMI) [Ratio] [facility]) Body weight 186 [lb_av] 186 [lb_av] [facility]CW1 [facility] Body height [in_us] eCW1 ([facility]) Diastolic blood 90 mm[Hg] 90 mm[Hg] eCW1 ([place] [facility]) Systolic blood 140 mm[Hg] 140 mm[Hg] eCW1 ([facility]) Body temperature 98.4 [degF] 98.4 [degF] eCW1 ( [facility]) Respiratory rate 18 /min 18 /min eCW1 ([facility] Heart rate 67 /min 67 /min eCW1 ([facility]) Body mass index 36.71 kg/m2 36.71 kg/m2 eCW1 (S aint (BMI) [Ratio] [facility]) Body weight 188 [lb_av] 188 [lb_av] eCW1 ([facility]) Body height [in_us] eCW1 ([facility]) Diastolic blood 98 mm[Hg] 98 mm[Hg] eCW1 ([place] [facility]) Systolic blood 166 mm[Hg] 166 mm[Hg] eCW1 ([facility]) Body temperature 98.6 [degF] 98.6 [degF] eCW1 ( [facility]) Respiratory rate 18 /min 18 /min eCW1 ([facility]) Heart rate 66 /min 66 /min eCW1 ([facility]) Body mass index 37.88 kg/m2 37.88 kg/m2 eCW1 (S aint (BMI) [Ratio] [facility]) Body weight 194 [lb_av] 194 [lb_av] eCW1 ([facility]) Body height [in_us] eCW1 ([facility]) Diastolic blood 81 mm[Hg] 81 mm[Hg] eCW1 ([place] [facility]) Systolic blood 133 mm[Hg] 133 mm[Hg] eCW1 ([place] [facility] pressure [facility]) Deprecated Oxygen 98 % 98 % eCW1 (S aint saturation in [facility] Cap[facility] blood by [facility]) Oximetry Body temperature 98.6 [degF] 98.6 [degF] eCW1 ( [facility]) Respiratory rate 18 /min 18 /min eCW1 ( int [facility]) Heart rate 77 /min 77 /min eCW1 ([facility]) Body mass index 37.88 kg/m2 37.88 kg/m2 eCW1 (S aint (BMI) [Ratio] [facility]) Body weight 194 [lb_av] 194 [lb_av] eCW1 ([facility]) Body height [in_us] eCW1 ([facility])
[2019-12-24 13:46] LABS: BASO % 0.7 % (0-2.0); EOS % 1.6 % (0-4.5); HEMATOCRIT 35.1 % (32.4-45.2); HEMOGLOBIN 11.6 GM/dL (10.7-15.3); LYMPH % 29.7 % (8-40); MCH 32.5 pg (25.7-33.7); MEAN CELL VOLUME 98.5 fl (80-96); MEAN PLT VOLUME 8.4 fl (7.5-11.1); MONO % 8.3 % (3.8-10.2); NEUT % 59.7 % (42.8-82.8); PLATELET COUNT 225 K/MM3 (134-434); RBC 3.57 M/mm3 (3.60-5.2); RDW 14.4 % (11.6-15.6)
[2019-12-24 14:21] LABS: URINE APPEARANCE CLEAR; URINE BILIRUBIN NEGATIVE (NEGATIVE); URINE COLOR YELLOW; URINE GLUCOSE (UA) NEGATIVE (NEGATIVE); URINE KETONE NEGATIVE (NEGATIVE); URINE LEUK ESTERASE NEGATIVE (NEGATIVE); URINE NITRITE NEGATIVE (NEGATIVE); URINE PROTEIN NEGATIVE (NEGATIVE); URINE UROBILINOGEN 0.2 mg/dL (0.2-1.0)
[2019-12-24 14:26] LABS: ALBUMIN 3.4 g/dl (3.4-5.0); BILIRUBIN,TOTAL 0.2 mg/dL (0.2-1); BLOOD UREA NITROGEN 16.8 mg/dL (7-18); CALCIUM 8.8 mg/dL (8.5-10.1); CREATININE 1.3 mg/dL (0.55-1.3); MAGNESIUM 2.2 mg/dL (1.8-2.4); POTASSIUM 4.5 mmol/L (3.5-5.1); TOT PROT 7.1 g/dl (6.4-8.2)
--- NOTE | 2019-12-24 15:01 | PDOC ---
History of Present Illness - General Chief Complaint: Tremors Stated Complaint: SWOLLEN FACE Time Seen by Provider: 12/24/19 13:21 History Source: Patient Exam Limitations: No Limitations - History of Present Illness Initial Comments: 12/24/19 15:20 59-year-old female presents to ED with complaints of eyelid swelling yesterday along with an episode of grogginess yesterday requiring her to go to another ER, [facility] where she had a CAT scan along with a EKG done. Patient denied any chest pain, shortness of breath, visual changes, abdominal pain or recent illness. 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 Patient is currently asymptomatic with no complaints including confusion, weakness, or facial/eyelid swelling Is this a multiple visit Asthma Patient?: No Timing/Duration: resolved prior to arrival Past History - Travel History Traveled outside of the country in the last 30 days: No Close contact w/someone who was outside of country & ill: No - Medical History Allergies/Adverse Reactions: Allergies Allergy/AdvReac Type Severity Reaction Status Date / Time No Known Allergies Allergy Verified 12/24/19 12:32 Home Medications: Ambulatory Orders Alprazolam [Xanax] 0.5 mg PO BID 03/19/16 Aspirin [ASA -] 81 mg PO DAILY 03/19/16 Furosemide [Lasix -] 40 mg PO DAILY 03/19/16 Metformin HCl [Glucophage] 500 mg PO TID 03/19/16 Methadone [Dolophine -] 80 mg PO DAILY 03/19/16 Montelukast Na [Singulair -] 10 mg PO HS 03/19/16 Pantoprazole Sodium [Protonix] 40 mg PO DAILY 03/19/16 Albuterol Sulfate Inhaler - [Ventolin Hfa Inhaler -] 1 - 2 inh PO QID PRN 07/09/17 Ipratropium/Albuterol Sulfate [Iprat-Albut 0.5-3(2.5) mg/3 ml] 3 ml IH QID PRN 07/09/17 Oxycodone HCl/Acetaminophen [Endocet 5-325 Tablet] 1 each PO Q4H PRN MDD 4 07/09/17 Sennosides [Senna] 8.6 mg PO HS 07/09/17 Asthma: Yes COPD: Yes Diabetes: Yes Disorders: Yes (PROLAPSED BLADDER) - Surgical History Orthopedic Surgery: Yes (rt knee replacement) - Immunization History Immunization Up to Date: Yes - Psycho-Social/Smoking History Patient Lives Alone: No Lives with/in: spouse/SO Smoking History: Current every day smoker Have you smoked in the past 12 months: Yes Number of Cigarettes Smoked Daily: 20 Information on smoking cessation initiated: No 'Breaking Loose' booklet given: 07/10/17 - Substance Abuse Hx (Audit-C & DAST Scrn) How often the patient has a drink containing alcohol: Never Score: In Men: 4 or > Positive; In Women: 3 or > Positive: 0 Screen Result (Pos requires Nsg. Audit-10AR): Negative In the last yr the pt used illegal drug/Rx for NonMed reason: Yes Score: Yes response is considered Positive: 1 Screen Result (Positive result requires Nsg. DAST-10): Positive Review of Systems - Review of Systems Able to Perform ROS?: Yes Is the patient limited Syriac proficient: Yes Constitutional: No: Symptoms Reported HEENTM: No: Symptoms Reported Respiratory: No: Symptoms reported Cardiac (ROS): No: Symptoms Reported ABD/GI: No: Symptoms Reported : No: Symptoms Reported Musculoskeletal: No: Symptoms Reported Integumentary: No: Symptoms Reported Neurological: No: Symptoms reported Endocrine: No: Symptoms Reported Hematologic/Lymphatic: No: Symptoms Reported *Physical Exam - Vital Signs Last Vital Signs Temp Pulse Resp BP Pulse Ox 98.4 F 92 H 18 123/82 93 L 12/24/19 12:32 12/24/19 12:32 12/24/19 12:32 12/24/19 12:32 12/24/19 12:32 - Physical Exam General Appearance: Yes: Nourished, Appropriately Dressed. No: Apparent Distress HEENT: positive: EOMI, JACOB, TMs Normal, Pharynx Normal. negative: Pale Conjunctivae Neck: positive: Supple Respiratory/Chest: positive: Lungs Clear, Normal Breath Sounds. negative: Respiratory Distress, Accessory Muscle Use Cardiovascular: positive: Regular Rhythm, Regular Rate. negative: Murmur Gastrointestinal/Abdominal: positive: Soft. negative: Tenderness Extremity: positive: Normal Inspection Integumentary: positive: Normal Color, Warm, Moist Neurologic: positive: Normal Mood/Affect (Hyperactive body language and flighty at times), Motor Strength 5/5 (Ambulatory) Heart Score/ECG Review - ECG Intrepretation Rhythm: Regular Rhythm (Rate 84. Normal sinus rhythm.) - ECG Impressions Normal ECG: Yes ED Treatment Course - LABORATORY CBC & Chemistry Diagram: 12/24/19 13:40 12/24/19 13:40 - ADDITIONAL ORDERS Additional order review: 12/24/19 13:40 RBC 3.57 L MCV 98.5 H MCHC 33.0 RDW 14.4 MPV 8.4 Neutrophils % 59.7 D Lymphocytes % 29.7 D Monocytes % 8.3 Eosinophils % 1.6 D Basophils % 0.7 Medical Decision Making - Medical Decision Making 12/24/19 15:39 Chief complaint: Patient here for evaluation of grogginess and eyelid swelling and "an episode of unresponsiveness yesterday. Patient went to [facility] which showed no acute findings. Patient is currently asymptomatic. Exam: Patient ANO x3 no neurofocal deficits. At times appears hyper, irritable, and flighty. Plan: Labs, urine urine tox, EKG 12/24/19 15:45 Laboratory Tests 12/24/19 14:00 Opiates Screen Positive A* Methadone Screen Positive A* U Marijuana (THC) Screen Positive A* 12/24/19 15:46 Laboratory Tests 12/24/19 12/24/19 12/24/19 13:40 13:40 14:00 WBC 8.0 Hgb 11.6 Hct 35.1 Absolute Neuts (auto) 4.8 Neutrophils % 59.7 D Lymphocytes % 29.7 D Monocytes % 8.3 Eosinophils % 1.6 D Basophils % 0.7 Nucleated RBC % 0 Sodium 142 Potassium 4.5 Chloride 103 Carbon Dioxide 37 H Anion Gap 2 L BUN 16.8 Creatinine 1.3 Est GFR (CKD-EPI)AfAm 51.28 Est GFR (CKD-EPI)NonAf 44.24 Random Glucose 85 Calcium 8.8 Magnesium 2.2 ALT 13 Alkaline Phosphatase 80 Albumin 3.4 Ur Specific [place] 1.006 L Urine Bilirubin Negative Ur Leukocyte Esterase Negative Patient remains asymptomatic Discharge - Discharge Information Problems reviewed: Yes Clinical Impression/Diagnosis: Anxiety Condition: Good Disposition: HOME - Follow up/Referral Referrals: Jamilah Tyson MD [Primary Care Provider] - - Patient Discharge Instructions Patient Printed Discharge Instructions: Anxiety and Panic Attacks (Alternative Therapy) Additional Instructions: Please try to keep your daily activities occupied which will alleviate your stress and avoid using Xanax or other harmful Substances - Post Discharge Activity
[2019-12-24 15:30] LABS: COCAINE, UR NEGATIVE ng/ml (CUTOFF=300); PHENCYCLIDINE,URINE NEGATIVE ng/ml (CUTOFF=25); URINE BARBITURATES NEGATIVE ng/ml (CUTOFF=200); URINE BENZODIAZEPINES NEGATIVE ng/ml (CUTOFF=200)
[2019-12-24 15:33] LABS: URINE AMPHETAMINES NEGATIVE ng/ml (CUTOFF=500)
[2019-12-24 15:42] LABS: METHADONE, UR POSITIVE ng/ml (CUTOFF=300); OPIATES, URI POSITIVE ng/ml (CUTOFF=300)
--- NOTE | 2019-12-25 13:53 | EKG ---
Test Reason : Blood Pressure : / mmHG Vent. Rate : 080 BPM Atrial Rate : 080 BPM P-R Int : 124 ms QRS Dur : 096 ms QT Int : 384 ms P-R-T Axes : 065 056 072 degrees QTc Int : 442 ms NORMAL SINUS RHYTHM POSSIBLE LEFT ATRIAL ENLARGEMENT NONSPECIFIC INTRAVENTRICULAR CONDUCTION DEFECT WHEN COMPARED WITH ECG OF 18-MAR-2016 19:42, NO SIGNIFICANT CHANGE WAS FOUND Confirmed by JAKUB GAN MD ([id number]) on 12/25/2019 1:52:39 PM Referred By: Confirmed By:JAKUB GAN MD
== END 2019-12-24 15:55 | disposition home or self-care (01) ==
LOC: JER 12:30
DX: F41.9 Anxiety disorder, unspecified (principal)
CPT/HCPCS: 36415; 80053; 80307; 81003; 83735; 85025; 93005; 93010; 99284-25

== ENCOUNTER 2023-02-17 15:57 | Inpatient (IN) | payer OTHER ==
[2023-02-17] MEDS ORDERED: NALOXONE HCL 0.4 MG/ML VIAL IVPUSH ONE ×2 (16:54→19:36)
[2023-02-17] MEDS ORDERED: NALOXONE HCL 0.4 MG/ML VIAL ONE ×2 (17:32→20:04)
[2023-02-17 17:46] LABS: VENOUS BASE EXCESS 6.9 mmol/L (-2-2); VENOUS O2 SATURATION 77.2 % (70-80); VENOUS PH 7.239 (7.310-7.410)
[2023-02-17 17:49] LABS: BASO % 0.3 % (0-2.0); EOS % 0.9 % (0-4.5); HEMATOCRIT 42.9 % (32.4-45.2); HEMOGLOBIN 13.7 GM/dL (10.7-15.3); MCH 31.4 pg (25.7-33.7); MEAN CELL VOLUME 98.2 fl (80-96); MEAN PLT VOLUME 8.2 fl (7.5-11.1); MONO % 7.4 % (3.8-10.2); NEUT % 69.4 % (42.8-82.8); PLATELET COUNT 201 10^3/uL (134-434); RBC 4.37 M/mm3 (3.60-5.2); RDW 15.5 % (11.6-15.6); VENOUS PCO2 91.6 mmHg (38-52); WHITE BLOOD COUNT 7.6 K/mm3 (4.0-10.0)
[2023-02-17 18:06] LABS: POTASSIUM 3.8 mmol/L (3.5-5.1)
[2023-02-17 18:08] LABS: BLOOD UREA NITROGEN 27.5 mg/dL (7-18); CALCIUM 9.4 mg/dL (8.5-10.1)
[2023-02-17 18:09] LABS: ALBUMIN 3.5 g/dl (3.4-5.0)
[2023-02-17 18:11] LABS: CREATININE 1.4 mg/dL (0.55-1.3); PHOSPHOROUS 3.4 mg/dL (2.5-4.9)
[2023-02-17 18:13] LABS: BILIRUBIN,TOTAL 0.3 mg/dL (0.2-1); TOT PROT 7.3 g/dl (6.4-8.2)
[2023-02-17 18:17] LABS: N-TERMINAL BNP 452.7 pg/ml (5-125)
[2023-02-17] MEDS ORDERED: PIPERACILLIN/TAZOB 4.5 GM 4.5 GM in DEXTROSE 5%-WATER 100 ML IVPB ONE (19:34)
[2023-02-17] MEDS ORDERED: VANCOMYCIN HCL 1,500 MG in DEXTROSE 5%-WATER - 500 ML IVPB ONE (19:35)
[2023-02-17 19:53] LABS: ARTERIAL BLD GAS O2 SATURATION 94.1 % (95-98); ARTERIAL BLOOD GAS BASE EXCESS 8.3 mmol/L (-2-2); ARTERIAL BLOOD GAS PO2 84.4 mmHg (80-100); ARTERIAL BLOOD GAS pH 7.255 (7.350-7.450)
[2023-02-17 20:01] LABS: ALLENS TEST POSITIVE
[2023-02-17 20:02] LABS: VENT MODE S/T; VENT RATE 14
[2023-02-17] MEDS ORDERED: PIPERACILLIN/TAZOB 4.5 GM 4.5 GM/100 ML BAG IVPB ONE (20:16)
[2023-02-17] MEDS ORDERED: VANCOMYCIN PREMIX 1.5 GM 1,500 MG/300 ML BAG IVPB ONE (20:45)
[2023-02-17] MEDS ORDERED: FUROSEMIDE 40 MG/4 ML INJECTABLE VIAL IVPUSH ONE (22:22)
[2023-02-17] MEDS ORDERED: DOCUSATE SODIUM 100 MG CAPSULE (FP) PO PRN (22:28)
[2023-02-17] MEDS ORDERED: ACETAMINOPHEN 1000 MG/100 ML BAG IVPB PRN (22:31)
[2023-02-17] MEDS ORDERED: FUROSEMIDE 40 MG/4 ML INJECTABLE VIAL ONE (22:47)
[2023-02-17 22:49] LABS: PH,URINE 5.5 (5.0-8.0); URINE APPEARANCE CLEAR; URINE BILIRUBIN NEGATIVE (NEGATIVE); URINE COLOR YELLOW; URINE GLUCOSE (UA) NEGATIVE (NEGATIVE); URINE KETONE NEGATIVE (NEGATIVE); URINE LEUK ESTERASE NEGATIVE (NEGATIVE); URINE NITRITE NEGATIVE (NEGATIVE); URINE PROTEIN 2+ (NEGATIVE); URINE UROBILINOGEN 0.2 mg/dL (0.2-1.0)
[2023-02-17 22:55] LABS: COCAINE, UR NEGATIVE (NEGATIVE); PHENCYCLIDINE,URINE NEGATIVE (NEGATIVE); URINE AMPHETAMINES NEGATIVE (NEGATIVE); URINE BENZODIAZEPINES NEGATIVE (NEGATIVE)
[2023-02-17 22:56] LABS: URINE BARBITURATES NEGATIVE (NEGATIVE)
[2023-02-17 22:59] LABS: EPI CELLS 1.2 /uL (0-25.1); URINE BACTERIA 0.9 /uL (0-1359); URINE RBC 3.4 /uL (0-23.9); URINE WBC 1.6 /uL (0-25.8)
[2023-02-17 23:19] LABS: METHADONE, UR POSITIVE (NEGATIVE); OPIATES, URI POSITIVE (NEGATIVE)
[2023-02-18] MEDS ORDERED: PIPERACILLIN/TAZOB 4.5 GM 4.5 GM/100 ML BAG IVPB ONE ×3 (03:27→15:25)
[2023-02-18] MEDS: PIPERACILLIN/TAZOB 4.5 GM 4.5 GM in DEXTROSE 5%-WATER 100 ML IVPB SCH ×3 (03:39→17:09)
[2023-02-18] MEDS ORDERED: ACETAMINOPHEN INJECTION 100 ML IVPB ONE (06:54)
[2023-02-18 07:04] LABS: BASO % 0.3 % (0-2.0); HEMATOCRIT 40.3 % (32.4-45.2); LYMPH % 21.8 % (8-40); MCH 31.9 pg (25.7-33.7); MCHC 32.3 g/dl (32.0-36.0); MEAN CELL VOLUME 98.6 fl (80-96); MEAN PLT VOLUME 8.3 fl (7.5-11.1); MONO % 7.9 % (3.8-10.2); PLATELET COUNT 185 10^3/uL (134-434); RBC 4.08 M/mm3 (3.60-5.2); RDW 15.7 % (11.6-15.6); WHITE BLOOD COUNT 7.6 K/mm3 (4.0-10.0)
[2023-02-18 07:08] LABS: CALCIUM 8.7 mg/dL (8.5-10.1)
[2023-02-18 07:09] LABS: BLOOD UREA NITROGEN 26.5 mg/dL (7-18)
[2023-02-18 07:13] LABS: CREATININE 1.4 mg/dL (0.55-1.3)
[2023-02-18] MEDS: INSULIN ASPART SLIDING SCALE (NOVOLOG) 1 VIAL SQ SCH ×4 (07:30→22:38)
[2023-02-18] MEDS ORDERED: ALBUTEROL SO4 2.5/IPRATROPIUM 0.5 INH SOL 3 ML VIAL.NEB. NEB PRN (07:42)
[2023-02-18 08:59] LABS: ARTERIAL BLD GAS O2 SATURATION 93.2 % (95-98); ARTERIAL BLOOD GAS BASE EXCESS 6.7 mmol/L (-2-2); ARTERIAL BLOOD GAS PO2 80.4 mmHg (80-100); ARTERIAL BLOOD GAS pH 7.245 (7.350-7.450)
[2023-02-18] MEDS ORDERED: VANCOMYCIN PREMIX 1.5 GM 1,500 MG/300 ML BAG IVPB SCH (09:00)
[2023-02-18 09:01] LABS: ALLENS TEST POSITIVE; VENT MODE ST
[2023-02-18 09:02] LABS: VENT RATE 14
[2023-02-18 09:04] LABS: INR 0.97 (0.83-1.09); PROTHROMBIN TIME (PATIENT) 11.2 SEC (9.7-13.0)
[2023-02-18 09:06] LABS: ACTIVATED PTT 32.6 SECONDS (25.2-36.5)
[2023-02-18] MEDS ORDERED: FUROSEMIDE 40 MG TABLET (FP) PO SCH (10:00)
[2023-02-18] MEDS ORDERED: FUROSEMIDE 40 MG TABLET (FP) ONE (11:49)
[2023-02-18] MEDS ORDERED: PANTOPRAZOLE 20 MG TABLET PO ONE (11:49)
[2023-02-18] MEDS: PANTOPRAZOLE 40 MG TABLET PO SCH (12:06)
[2023-02-18] MEDS: ENOXAPARIN NA (PORCINE) 40 MG/0.4 ML DISP.SYRIN SQ SCH (12:06)
[2023-02-18] MEDS: OXYBUTYNIN CHLORIDE 5 MG TABLET PO SCH ×2 (12:48→23:05)
[2023-02-18] MEDS: BUDESONIDE/FORMETEROL FUMARATE 160/4.5 mcg INHALER IH SCH ×2 (12:49→23:05)
[2023-02-18] MEDS: AMMONIUM LACTATE 12% LOTION 225 GM BOTTLE TP SCH (12:57)
[2023-02-18] MEDS: FUROSEMIDE 40 MG/4 ML INJECTABLE VIAL IVPUSH SCH (15:20)
[2023-02-18] MEDS ORDERED: FUROSEMIDE 40 MG/4 ML INJECTABLE VIAL IVPUSH ONE (15:27)
[2023-02-18] MEDS ORDERED: CEFTRIAXONE 2 GM/100 ML BAG IVPB ONE (18:01)
[2023-02-18] MEDS: CEFTRIAXONE 2 GM in DEXTROSE 5%-WATER 100 ML IVPB SCH (18:07)
[2023-02-18] MEDS ORDERED: AZITHROMYCIN IVPB 500 MG/250 ML BAG IVPB ONE (18:17)
[2023-02-18] MEDS: AZITHROMYCIN IVPB 500 MG/250 ML BAG IVPB SCH (18:53)
[2023-02-18] MEDS ORDERED: ACETAMINOPHEN 325 MG TABLET (FP) ONE (23:01)
[2023-02-18] MEDS ORDERED: MONTELUKAST NA 10 MG TABLET ONE (23:01)
[2023-02-18] MEDS: MONTELUKAST NA 10 MG TABLET PO SCH (23:05)
[2023-02-18] MEDS: ACETAMINOPHEN 325 MG TABLET (FP) PO PRN (23:05)
[2023-02-19 01:43] VITALS: BMI 28.5
[2023-02-19] MEDS ORDERED: PIPERACILLIN/TAZOB 4.5 GM 4.5 GM in DEXTROSE 5%-WATER 100 ML IVPB SCH (03:00)
[2023-02-19] MEDS: ACETAMINOPHEN 325 MG TABLET (FP) PO PRN ×3 (05:56→21:27)
[2023-02-19] MEDS: INSULIN ASPART SLIDING SCALE (NOVOLOG) 1 VIAL SQ SCH ×4 (06:04→22:51)
[2023-02-19 07:22] LABS: BASO % 0.1 % (0-2.0); EOS % 0.5 % (0-4.5); HEMATOCRIT 40.6 % (32.4-45.2); HEMOGLOBIN 13.1 GM/dL (10.7-15.3); LYMPH % 5.8 % (8-40); MCH 31.9 pg (25.7-33.7); MCHC 32.4 g/dl (32.0-36.0); MEAN CELL VOLUME 98.4 fl (80-96); MEAN PLT VOLUME 8.6 fl (7.5-11.1); MONO % 5.1 % (3.8-10.2); NEUT % 88.5 % (42.8-82.8); PLATELET COUNT 187 10^3/uL (134-434); RBC 4.13 M/mm3 (3.60-5.2); RDW 15.1 % (11.6-15.6); WHITE BLOOD COUNT 7.4 K/mm3 (4.0-10.0)
[2023-02-19 07:38] LABS: POTASSIUM 3.8 mmol/L (3.5-5.1)
[2023-02-19 07:40] LABS: BLOOD UREA NITROGEN 24.6 mg/dL (7-18); CALCIUM 8.6 mg/dL (8.5-10.1)
[2023-02-19 07:44] LABS: CREATININE 1.5 mg/dL (0.55-1.3)
[2023-02-19] MEDS ORDERED: VANCOMYCIN PREMIX 1.5 GM 1,500 MG/300 ML BAG IVPB SCH (09:00)
[2023-02-19] MEDS ORDERED: FLU VACCINE (FLULAVAL) PF 60 MCG/0.5 ML SYRINGE 2023-2024 IM ONE (10:00)
[2023-02-19] MEDS ORDERED: PNEUMOC 20-VAL CONJ-DIP CRM/PF 0.5 ML SYRINGE IM ONE (10:00)
[2023-02-19] MEDS: FUROSEMIDE 40 MG/4 ML INJECTABLE VIAL IVPUSH SCH (11:00)
[2023-02-19] MEDS: AZITHROMYCIN IVPB 500 MG/250 ML BAG IVPB SCH (11:00)
[2023-02-19] MEDS: CEFTRIAXONE 2 GM in DEXTROSE 5%-WATER 100 ML IVPB SCH (11:00)
[2023-02-19] MEDS: OXYBUTYNIN CHLORIDE 5 MG TABLET PO SCH ×2 (11:00→21:29)
[2023-02-19] MEDS: PANTOPRAZOLE 40 MG TABLET PO SCH (11:00)
[2023-02-19] MEDS: ENOXAPARIN NA (PORCINE) 40 MG/0.4 ML DISP.SYRIN SQ SCH (11:16)
[2023-02-19] MEDS: LEVOTHYROXINE NA 25 MCG TABLET (FP) PO SCH (11:17)
[2023-02-19] MEDS ORDERED: INSULIN (NOVOLOG) ASPART 100 UNITS/ML 10ML VIAL ONE (12:07)
[2023-02-19] MEDS: BUDESONIDE/FORMETEROL FUMARATE 160/4.5 mcg INHALER IH SCH ×3 (12:47→21:30)
[2023-02-19] MEDS: AMMONIUM LACTATE 12% LOTION 225 GM BOTTLE TP SCH ×2 (12:47→14:58)
[2023-02-19] MEDS ORDERED: methaDONE HCL 40 MG DISPERSABLE TABLET PO SCH (14:00)
[2023-02-19] MEDS: methaDONE 40 MG, methaDONE 30 MG PO SCH (14:30)
[2023-02-19 20:17] VITALS: RESP 19
[2023-02-19] MEDS: MONTELUKAST NA 10 MG TABLET PO SCH (21:28)
[2023-02-20] MEDS: methaDONE 40 MG, methaDONE 30 MG PO SCH (05:56)
[2023-02-20] MEDS: LEVOTHYROXINE NA 25 MCG TABLET (FP) PO SCH (06:01)
[2023-02-20] MEDS: INSULIN ASPART SLIDING SCALE (NOVOLOG) 1 VIAL SQ SCH ×2 (07:02→11:40)
[2023-02-20 07:15] LABS: POTASSIUM 3.9 mmol/L (3.5-5.1)
[2023-02-20 07:19] LABS: CALCIUM 8.5 mg/dL (8.5-10.1)
[2023-02-20 07:20] LABS: ALBUMIN 2.9 g/dl (3.4-5.0); BLOOD UREA NITROGEN 27.7 mg/dL (7-18)
[2023-02-20 07:22] LABS: CREATININE 1.4 mg/dL (0.55-1.3)
[2023-02-20 07:24] LABS: BILIRUBIN,TOTAL 0.4 mg/dL (0.2-1); TOT PROT 6.4 g/dl (6.4-8.2)
[2023-02-20 07:39] VITALS: BP 110/69; PULSE 80; TEMP 98.6
[2023-02-20] MEDS: CEFTRIAXONE 2 GM in DEXTROSE 5%-WATER 100 ML IVPB SCH (09:10)
[2023-02-20] MEDS: FUROSEMIDE 40 MG/4 ML INJECTABLE VIAL IVPUSH SCH (09:10)
[2023-02-20] MEDS: ENOXAPARIN NA (PORCINE) 40 MG/0.4 ML DISP.SYRIN SQ SCH (09:11)
[2023-02-20] MEDS: OXYBUTYNIN CHLORIDE 5 MG TABLET PO SCH (09:11)
[2023-02-20] MEDS: AZITHROMYCIN IVPB 500 MG/250 ML BAG IVPB SCH ×2 (09:11→11:00)
[2023-02-20] MEDS: PANTOPRAZOLE 40 MG TABLET PO SCH (09:11)
[2023-02-20] MEDS: BUDESONIDE/FORMETEROL FUMARATE 160/4.5 mcg INHALER IH SCH (11:00)
[2023-02-20] MEDS: AMMONIUM LACTATE 12% LOTION 225 GM BOTTLE TP SCH (11:19)
== END 2023-02-20 12:45 | disposition home or self-care (01) | DRG 140 ==
LOC: JER 15:57 → JERBED 20:35 → OBSVTOIN 22:29 → J4W 02-19 01:28
PROVIDERS: ADMIT Internal Medicine; ATTEND Family Medicine
DX: J44.1 Chronic obstructive pulmonary disease with (acute) exacerbation (principal); J18.9 Pneumonia, unspecified organism; E87.4 Mixed disorder of acid-base balance; J96.02 Acute respiratory failure with hypercapnia; N17.9 Acute kidney failure, unspecified; J44.0 Chronic obstructive pulmonary disease with (acute) lower respiratory infection; K21.9 Gastro-esophageal reflux disease without esophagitis; K59.00 Constipation, unspecified; K76.0 Fatty (change of) liver, not elsewhere classified; E03.9 Hypothyroidism, unspecified; G47.33 Obstructive sleep apnea (adult) (pediatric); E11.40 Type 2 diabetes mellitus with diabetic neuropathy, unspecified; M51.36 Other intervertebral disc degeneration, lumbar region; M48.061 Spinal stenosis, lumbar region without neurogenic claudication; F11.20 Opioid dependence, uncomplicated; R41.82 Altered mental status, unspecified; Z96.651 Presence of right artificial knee joint; F41.9 Anxiety disorder, unspecified; F19.10 Other psychoactive substance abuse, uncomplicated; I13.0 Hypertensive heart and chronic kidney disease with heart failure and stage 1 through stage 4 chronic kidney disease, or unspecified chronic kidney disease; E11.22 Type 2 diabetes mellitus with diabetic chronic kidney disease; N18.9 Chronic kidney disease, unspecified; I50.9 Heart failure, unspecified; Z99.81 Dependence on supplemental oxygen
CPT/HCPCS: 36415; 36600; 71045-TC-FY; 73562-TC-RT-FY; 80048; 80053; 80307; 81003; 82140; 82803; 82962; 83735; 83880; 84100; 84443; 84484; 85025; 85610; 85730; 87040; 87086; 87899; 90677; 90686; 93005; 93010; 93306-TC; 94660; 99285-25; G0008; G0378

== ENCOUNTER 2023-04-26 09:31 | Inpatient (IN) | payer MEDICARE, OTHER ==
[2023-04-26 09:59] VITALS: BMI 36.7
[2023-04-26 11:44] LABS: BASO % 0.1 % (0-2.0); EOS % 0.5 % (0-4.5); HEMATOCRIT 37.9 % (32.4-45.2); HEMOGLOBIN 12.3 GM/dL (10.7-15.3); LYMPH % 13.8 % (8-40); MCH 32.2 pg (25.7-33.7); MCHC 32.5 g/dl (32.0-36.0); MEAN CELL VOLUME 98.9 fl (80-96); MEAN PLT VOLUME 7.9 fl (7.5-11.1); MONO % 6.8 % (3.8-10.2); NEUT % 78.8 % (42.8-82.8); PLATELET COUNT 203 10^3/uL (134-434); RBC 3.83 M/mm3 (3.60-5.2); RDW 14.4 % (11.6-15.6); WHITE BLOOD COUNT 10.5 K/mm3 (4.0-10.0)
[2023-04-26 12:03] LABS: POTASSIUM 4.7 mmol/L (3.5-5.1)
[2023-04-26 12:04] LABS: CALCIUM 9.6 mg/dL (8.5-10.1)
[2023-04-26 12:05] LABS: ALBUMIN 3.3 g/dl (3.4-5.0); BLOOD UREA NITROGEN 35.3 mg/dL (7-18); MAGNESIUM 2.1 mg/dL (1.8-2.4)
[2023-04-26 12:08] LABS: CREATININE 1.5 mg/dL (0.55-1.3)
[2023-04-26 12:10] LABS: BILIRUBIN,TOTAL 0.2 mg/dL (0.2-1); TOT PROT 7.3 g/dl (6.4-8.2)
[2023-04-26] MEDS ORDERED: ACETAMINOPHEN 325 MG TABLET (FP) ONE (12:10)
[2023-04-26] MEDS ORDERED: methylPREDNISolone NA SUCC 125 MG/2 ML VIAL ONE (12:10)
[2023-04-26] MEDS ORDERED: ALBUTEROL SO4 0.083% IH SOL 2.5 MG/3 ML VIAL.NEB. NEB ONE (12:12)
[2023-04-26] MEDS ORDERED: CEFTRIAXONE 1 GM/50 ML BAG ONE (12:12)
[2023-04-26] MEDS ORDERED: IPRATROPIUM BR 0.02% 0.5 MG/2.5 ML VIAL.NEB. NEB ONE (12:12)
[2023-04-26 12:13] LABS: N-TERMINAL BNP 2077.6 pg/ml (5-125)
[2023-04-26] MEDS: methylPREDNISolone NA SUCC 125 MG/2 ML VIAL IVPB ONE (12:28)
[2023-04-26] MEDS: CEFTRIAXONE 1,000 MG in DEXTROSE 5%-WATER - 50 ML IVPB ONE (12:28)
[2023-04-26] MEDS: ALBUTEROL SO4 2.5/IPRATROPIUM 0.5 INH SOL 3 ML VIAL.NEB. NEB SCH (12:28)
[2023-04-26] MEDS: ACETAMINOPHEN 325 MG TABLET (FP) PO ONE (12:28)
[2023-04-26] MEDS ORDERED: ALBUTEROL SO4 2.5/IPRATROPIUM 0.5 INH SOL 3 ML VIAL.NEB. NEB ONE (12:59)
[2023-04-26] MEDS ORDERED: AZITHROMYCIN IVPB 500 MG/250 ML BAG IVPB ONE (13:00)
[2023-04-26] MEDS: AZITHROMYCIN IVPB 500 MG in DEXTROSE 5%-WATER - 250 ML IVPB ONE (13:09)
[2023-04-26] MEDS ORDERED: ACETAMINOPHEN INJECTION 100 ML IVPB ONE (18:08)
[2023-04-26] MEDS: ACETAMINOPHEN 1000 MG/100 ML BAG IVPB ONE (18:17)
[2023-04-26] MEDS ORDERED: METOCLOPRAMIDE HCL INJECTION 10 MG/2 ML VIAL ONE (19:39)
[2023-04-26] MEDS: METOCLOPRAMIDE HCL INJECTION 10 MG/2 ML VIAL IVPB ONE (19:46)
[2023-04-26] MEDS ORDERED: ALBUTEROL SO4 2.5/IPRATROPIUM 0.5 INH SOL 3 ML VIAL.NEB. NEB PRN (20:03)
[2023-04-26] MEDS: ACETAMINOPHEN 1000 MG/100 ML BAG IVPB PRN (22:15)
[2023-04-26] MEDS: SENNOSIDES 8.6MG TABLET (FP) PO SCH (22:15)
[2023-04-26] MEDS: MONTELUKAST NA 10 MG TABLET PO SCH (22:15)
[2023-04-26] MEDS: INSULIN ASPART SLIDING SCALE (NOVOLOG) 1 VIAL SQ SCH (22:16)
[2023-04-26] MEDS: BUDESONIDE/FORMETEROL FUMARATE 160/4.5 mcg INHALER IH SCH (22:45)
[2023-04-26] MEDS: OXYBUTYNIN CHLORIDE 5 MG TABLET PO SCH (23:05)
[2023-04-27] MEDS: methylPREDNISolone NA SUCC 40 MG/1 ML VIAL IVPUSH SCH (02:55)
[2023-04-27] MEDS ORDERED: methaDONE HCL 10 MG TABLET PO SCH (06:00)
[2023-04-27] MEDS: LEVOTHYROXINE NA 25 MCG TABLET (FP) PO SCH (06:58)
[2023-04-27 08:17] LABS: HEMATOCRIT 39.7 % (32.4-45.2); HEMOGLOBIN 13.1 GM/dL (10.7-15.3); MCH 32.6 pg (25.7-33.7); MCHC 32.9 g/dl (32.0-36.0); MEAN CELL VOLUME 99.1 fl (80-96); MEAN PLT VOLUME 8.8 fl (7.5-11.1); PLATELET COUNT 216 10^3/uL (134-434); RBC 4.01 M/mm3 (3.60-5.2); RDW 14.4 % (11.6-15.6); WHITE BLOOD COUNT 9.8 K/mm3 (4.0-10.0)
[2023-04-27 08:25] LABS: POTASSIUM 4.8 mmol/L (3.5-5.1)
[2023-04-27 08:28] LABS: CALCIUM 9.9 mg/dL (8.5-10.1)
[2023-04-27 08:29] LABS: ALBUMIN 3.4 g/dl (3.4-5.0); BLOOD UREA NITROGEN 32.5 mg/dL (7-18)
[2023-04-27 08:32] LABS: CREATININE 1.4 mg/dL (0.55-1.3)
[2023-04-27 08:33] LABS: BILIRUBIN,TOTAL 0.7 mg/dL (0.2-1)
[2023-04-27 08:34] LABS: TOT PROT 7.5 g/dl (6.4-8.2)
[2023-04-27] MEDS: methaDONE 40 MG, methaDONE 30 MG PO SCH (09:28)
[2023-04-27] MEDS: ASPIRIN 81 MG CHEWABLE TABLETS PO SCH (09:31)
[2023-04-27] MEDS: CEFTRIAXONE 1 GM in DEXTROSE 5%-WATER - 50 ML IVPB SCH (09:31)
[2023-04-27] MEDS: FUROSEMIDE 40 MG TABLET (FP) PO SCH (09:31)
[2023-04-27] MEDS: PANTOPRAZOLE 40 MG TABLET PO SCH (09:31)
[2023-04-27] MEDS: ENOXAPARIN NA (PORCINE) 40 MG/0.4 ML DISP.SYRIN SQ SCH (09:32)
[2023-04-27] MEDS: AZITHROMYCIN IVPB 250 MG in DEXTROSE 5%-WATER - 250 ML IVPB SCH (09:32)
[2023-04-27 12:08] LABS: ANISOCYTOSIS 0; HELMET CELLS 0; HOWELL-JOLLY BODIES 0; MACROCYTOSIS 0; OVALOCYTE 0; ROULEAU 0; SICKELED CELLS 0; TARGET CELLS 0; TEAR DROP CELLS 0; TOXIC GRANULATION 0
[2023-04-27] MEDS: DOCUSATE SODIUM 100 MG CAPSULE (FP) PO SCH (14:00)
[2023-04-28] MEDS: ZOLPIDEM TARTRATE 5 MG TABLET PO PRN (21:26)
[2023-04-29 15:44] VITALS: BP 150/82; PULSE 69; RESP 14; TEMP 98.8
== END 2023-04-29 17:02 | disposition home or self-care (01) | DRG 194 ==
LOC: JER 09:31 → JERBED 13:06 → J4W 20:40
PROVIDERS: ADMIT Internal Medicine; ATTEND Internal Medicine
DX: J18.9 Pneumonia, unspecified organism (principal); J44.0 Chronic obstructive pulmonary disease with (acute) lower respiratory infection; J44.1 Chronic obstructive pulmonary disease with (acute) exacerbation; J96.11 Chronic respiratory failure with hypoxia; E03.9 Hypothyroidism, unspecified; G47.33 Obstructive sleep apnea (adult) (pediatric); K21.9 Gastro-esophageal reflux disease without esophagitis; I12.9 Hypertensive chronic kidney disease with stage 1 through stage 4 chronic kidney disease, or unspecified chronic kidney disease; N18.9 Chronic kidney disease, unspecified; K76.0 Fatty (change of) liver, not elsewhere classified; E11.51 Type 2 diabetes mellitus with diabetic peripheral angiopathy without gangrene; E11.40 Type 2 diabetes mellitus with diabetic neuropathy, unspecified; E11.22 Type 2 diabetes mellitus with diabetic chronic kidney disease; G47.30 Sleep apnea, unspecified; F11.20 Opioid dependence, uncomplicated; K59.00 Constipation, unspecified; E66.9 Obesity, unspecified; Z68.36 Body mass index [BMI] 36.0-36.9, adult; M51.36 Other intervertebral disc degeneration, lumbar region; M48.061 Spinal stenosis, lumbar region without neurogenic claudication; Z99.81 Dependence on supplemental oxygen; Z96.651 Presence of right artificial knee joint
CPT/HCPCS: 0241U-QW; 36415; 71045-TC-FY; 71275-TC; 80053; 82962; 83735; 83880; 84484; 85025; 85379; 87899; 93005; 93010; 99285-25; J0131; Q9967

== ENCOUNTER 2023-05-04 15:44 | Inpatient (IN) | payer MEDICARE, OTHER ==
[2023-05-04] MEDS ORDERED: ALBUTEROL SO4 2.5/IPRATROPIUM 0.5 INH SOL 3 ML VIAL.NEB. NEB ONE (17:02)
[2023-05-04 17:19] LABS: VENOUS BASE EXCESS 1.4 mmol/L (-2-2); VENOUS O2 SATURATION 61.8 % (70-80); VENOUS PCO2 65.4 mmHg (38-52); VENOUS PH 7.28 (7.310-7.410)
[2023-05-04 17:22] LABS: BASO % 0.3 % (0-2.0); EOS % 1.4 % (0-4.5); HEMATOCRIT 40.7 % (32.4-45.2); HEMOGLOBIN 13.6 GM/dL (10.7-15.3); LYMPH % 12.1 % (8-40); MCH 32.3 pg (25.7-33.7); MCHC 33.5 g/dl (32.0-36.0); MEAN CELL VOLUME 96.4 fl (80-96); MEAN PLT VOLUME 8.4 fl (7.5-11.1); MONO % 6.7 % (3.8-10.2); NEUT % 79.5 % (42.8-82.8); PLATELET COUNT 233 10^3/uL (134-434); RBC 4.22 M/mm3 (3.60-5.2); RDW 14.2 % (11.6-15.6); WHITE BLOOD COUNT 11.6 K/mm3 (4.0-10.0)
[2023-05-04 17:29] LABS: INR 0.94 (0.83-1.09); PROTHROMBIN TIME (PATIENT) 10.9 SEC (9.7-13.0)
[2023-05-04 17:31] LABS: ACTIVATED PTT 30.2 SECONDS (25.2-36.5)
[2023-05-04 17:38] LABS: POTASSIUM 3.9 mmol/L (3.5-5.1)
[2023-05-04 17:39] LABS: CALCIUM 9.3 mg/dL (8.5-10.1)
[2023-05-04 17:40] LABS: ALBUMIN 3.3 g/dl (3.4-5.0)
[2023-05-04] MEDS: ALBUTEROL SO4 2.5/IPRATROPIUM 0.5 INH SOL 3 ML VIAL.NEB. NEB ONE (17:41)
[2023-05-04 17:42] LABS: BILIRUBIN,DIRECT 0.1 mg/dL (0.0-0.2)
[2023-05-04 17:43] LABS: CREATININE 1.9 mg/dL (0.55-1.3)
[2023-05-04 17:45] LABS: BILIRUBIN,TOTAL 0.2 mg/dL (0.2-1); TOT PROT 7.2 g/dl (6.4-8.2)
[2023-05-04 17:52] LABS: BLOOD UREA NITROGEN 59.6 mg/dL (7-18)
[2023-05-04] MEDS: LACTATED RINGERS SOLUTION 1000 ML INFUS.BAG IV ONE (17:54)
[2023-05-05 01:23] VITALS: BMI 37.4
[2023-05-05 03:05] LABS: EPI CELLS >36 /uL (0-25.1); HYALINE CASTS 1 /uL (0-3.1); PH,URINE 5.5 (5.0-8.0); URINE APPEARANCE CLOUDY; URINE BACTERIA 979 /uL (0-1359); URINE BILIRUBIN NEGATIVE (NEGATIVE); URINE COLOR YELLOW; URINE GLUCOSE (UA) NEGATIVE (NEGATIVE); URINE KETONE NEGATIVE (NEGATIVE); URINE LEUK ESTERASE TRACE (NEGATIVE); URINE NITRITE NEGATIVE (NEGATIVE); URINE PROTEIN 1+ (NEGATIVE); URINE RBC 11 /uL (0-23.9); URINE UROBILINOGEN 0.2 mg/dL (0.2-1.0); URINE WBC 55 /uL (0-25.8)
[2023-05-05 03:22] LABS: URINE BARBITURATES NEGATIVE (NEGATIVE)
[2023-05-05 03:23] LABS: PHENCYCLIDINE,URINE NEGATIVE (NEGATIVE); URINE BENZODIAZEPINES NEGATIVE (NEGATIVE)
[2023-05-05 03:53] LABS: COCAINE, UR NEGATIVE (NEGATIVE); METHADONE, UR POSITIVE (NEGATIVE); OPIATES, URI POSITIVE (NEGATIVE); URINE AMPHETAMINES NEGATIVE (NEGATIVE)
[2023-05-05 04:54] LABS: YEAST FEW (NEGATIVE)
[2023-05-05] MEDS ORDERED: ALBUTEROL SO4 2.5/IPRATROPIUM 0.5 INH SOL 3 ML VIAL.NEB. NEB PRN (08:02)
[2023-05-05 08:51] LABS: BASO % 0.5 % (0-2.0); HEMATOCRIT 37.1 % (32.4-45.2); HEMOGLOBIN 12.4 GM/dL (10.7-15.3); LYMPH % 19.8 % (8-40); MCH 32.7 pg (25.7-33.7); MCHC 33.5 g/dl (32.0-36.0); MEAN CELL VOLUME 97.5 fl (80-96); MEAN PLT VOLUME 8.3 fl (7.5-11.1); NEUT % 68.7 % (42.8-82.8); PLATELET COUNT 217 10^3/uL (134-434); WHITE BLOOD COUNT 7.9 K/mm3 (4.0-10.0)
[2023-05-05 08:53] LABS: POTASSIUM 4.2 mmol/L (3.5-5.1)
[2023-05-05 08:55] LABS: CALCIUM 9.2 mg/dL (8.5-10.1)
[2023-05-05 08:56] LABS: BLOOD UREA NITROGEN 50.5 mg/dL (7-18)
[2023-05-05 08:59] LABS: CREATININE 1.7 mg/dL (0.55-1.3)
[2023-05-05] MEDS: LEVOTHYROXINE NA 25 MCG TABLET (FP) PO SCH (10:12)
[2023-05-05] MEDS: ASPIRIN 81 MG CHEWABLE TABLETS PO SCH (10:13)
[2023-05-05] MEDS: PANTOPRAZOLE 40 MG TABLET PO SCH (10:13)
[2023-05-05] MEDS: SENNOSIDES 8.6MG TABLET (FP) PO SCH (10:13)
[2023-05-05] MEDS: PIPERACILLIN/TAZOB 4.5 GM 4.5 GM in DEXTROSE 5%-WATER 100 ML IVPB SCH (10:13)
[2023-05-05] MEDS: VANCOMYCIN/WATER FOR INJ (PEG) 1,000 MG/200 ML BAG IVPB ONE (10:13)
[2023-05-05] MEDS: BUDESONIDE/FORMETEROL FUMARATE 160/4.5 mcg INHALER IH SCH (10:15)
[2023-05-05] MEDS ORDERED: ALBUTEROL SO4 0.083% IH SOL 2.5 MG/3 ML VIAL.NEB. NEB PRN (10:30)
[2023-05-05] MEDS: methaDONE HCL 10 MG TABLET PO SCH (10:54)
[2023-05-05] MEDS: INSULIN ASPART SLIDING SCALE (NOVOLOG) 1 VIAL SQ SCH (11:43)
[2023-05-05] MEDS: methylPREDNISolone NA SUCC 40 MG/1 ML VIAL IVPUSH SCH (11:55)
[2023-05-05] MEDS: ALBUTEROL SO4 2.5/IPRATROPIUM 0.5 INH SOL 3 ML VIAL.NEB. NEB SCH (14:58)
[2023-05-05] MEDS ORDERED: PIPERACILLIN/TAZOB 4.5 GM 4.5 GM in DEXTROSE 5%-WATER 100 ML IVPB SCH (15:00)
[2023-05-05] MEDS: ACETAMINOPHEN 325 MG TABLET (FP) PO PRN (17:54)
[2023-05-05] MEDS: MONTELUKAST NA 10 MG TABLET PO SCH (21:17)
[2023-05-06 02:54] VITALS: RESP 18
[2023-05-06] MEDS ORDERED: INSULIN ASPART SLIDING SCALE (NOVOLOG) 1 VIAL SQ ONE (16:26)
[2023-05-07 10:26] VITALS: BP 157/92; PULSE 92; TEMP 98.9
[2023-05-07] MEDS ORDERED: INSULIN ASPART SLIDING SCALE (NOVOLOG) 1 VIAL SQ ONE (11:00)
[2023-05-07] MEDS: predniSONE 20 MG TABLET (UD) PO SCH (11:04)
== END 2023-05-07 13:20 | disposition home or self-care (01) | DRG 918 ==
LOC: JER 15:44 → JERBED 18:32 → J6S 22:35
PROVIDERS: ADMIT Internal Medicine; ATTEND Internal Medicine
DX: T40.2X4A Poisoning by other opioids, undetermined, initial encounter (principal); J44.1 Chronic obstructive pulmonary disease with (acute) exacerbation; F11.20 Opioid dependence, uncomplicated; I13.0 Hypertensive heart and chronic kidney disease with heart failure and stage 1 through stage 4 chronic kidney disease, or unspecified chronic kidney disease; X58.XXXA Exposure to other specified factors, initial encounter; Y92.89 Other specified places as the place of occurrence of the external cause; Y93.9 Activity, unspecified; E11.40 Type 2 diabetes mellitus with diabetic neuropathy, unspecified; I25.10 Atherosclerotic heart disease of native coronary artery without angina pectoris; E03.9 Hypothyroidism, unspecified; K21.9 Gastro-esophageal reflux disease without esophagitis; E11.22 Type 2 diabetes mellitus with diabetic chronic kidney disease; E11.51 Type 2 diabetes mellitus with diabetic peripheral angiopathy without gangrene; R09.02 Hypoxemia; G47.30 Sleep apnea, unspecified; E66.9 Obesity, unspecified; Z68.37 Body mass index [BMI] 37.0-37.9, adult; N18.9 Chronic kidney disease, unspecified; I50.9 Heart failure, unspecified
CPT/HCPCS: 0241U-QW; 36415; 71045-TC-FY; 80048; 80053; 80307; 81003; 82248; 82550; 82803; 82962; 84484; 85025; 85610; 85730; 87040; 87086; 87186; 93005; 93010; 94640; 99285-25

== ENCOUNTER 2023-05-13 06:20 | Inpatient (IN) | payer OTHER ==
[2023-05-13] MEDS ORDERED: RACEPINEPHRINE IH SOL 2.25% 11.25 MG/0.5 ML VIAL NEB ONE (06:30)
[2023-05-13] MEDS: ALBUTEROL SO4 0.083% IH SOL 2.5 MG/3 ML VIAL.NEB. NEB ONE (06:30)
[2023-05-13 06:31] VITALS: BMI 30.9
[2023-05-13] MEDS ORDERED: NALOXONE HCL 0.4 MG/ML VIAL ONE ×3 (06:35→11:48)
[2023-05-13] MEDS: NALOXONE HCL 0.4 MG/ML VIAL IVPUSH ONE ×5 (06:45→12:01)
[2023-05-13] MEDS: ALBUTEROL SO4 2.5/IPRATROPIUM 0.5 INH SOL 3 ML VIAL.NEB. NEB SCH ×2 (06:57→20:22)
[2023-05-13] MEDS: RACEPINEPHRINE IH SOL 2.25% 11.25 MG/0.5 ML VIAL IH ONE (07:00)
[2023-05-13 07:22] LABS: HEMATOCRIT 43.7 % (32.4-45.2); HEMOGLOBIN 14.2 GM/dL (10.7-15.3); MCH 32.4 pg (25.7-33.7); MCHC 32.6 g/dl (32.0-36.0); MEAN CELL VOLUME 99.4 fl (80-96); MEAN PLT VOLUME 8.9 fl (7.5-11.1); PLATELET COUNT 289 10^3/uL (134-434); RDW 14.7 % (11.6-15.6)
[2023-05-13 07:24] LABS: WHITE BLOOD COUNT 16.6 K/mm3 (4.0-10.0)
[2023-05-13 08:16] LABS: POTASSIUM 5.3 mmol/L (3.5-5.1)
[2023-05-13 08:18] LABS: CALCIUM 8.6 mg/dL (8.5-10.1)
[2023-05-13 08:19] LABS: ALBUMIN 3.3 g/dl (3.4-5.0); BLOOD UREA NITROGEN 45.7 mg/dL (7-18)
[2023-05-13] MEDS ORDERED: AZITHROMYCIN IVPB 500 MG/250 ML BAG IVPB ONE (08:21)
[2023-05-13 08:22] LABS: CREATININE 1.7 mg/dL (0.55-1.3)
[2023-05-13 08:23] LABS: TOT PROT 7.3 g/dl (6.4-8.2)
[2023-05-13 08:24] LABS: BILIRUBIN,TOTAL 0.4 mg/dL (0.2-1)
[2023-05-13] MEDS: AZITHROMYCIN IVPB 500 MG in DEXTROSE 5%-WATER - 250 ML IVPB ONE (08:30)
[2023-05-13 08:58] LABS: N-TERMINAL BNP 159.4 pg/ml (5-125)
[2023-05-13 09:16] LABS: MAGNESIUM 1.8 mg/dL (1.8-2.4)
[2023-05-13] MEDS ORDERED: CEFEPIME 1 GM/100 ML BAG IVPB ONE (10:16)
[2023-05-13] MEDS: CEFEPIME HCL 1 GM VIAL (RESTRICTED TO ID) IVPB ONE (10:42)
[2023-05-13 10:48] LABS: VENOUS BASE EXCESS 0.7 mmol/L (-2-2); VENOUS O2 SATURATION 97.1 % (70-80); VENOUS PH 7.206 (7.310-7.410)
[2023-05-13 11:09] LABS: POTASSIUM 4.3 mmol/L (3.5-5.1)
[2023-05-13 11:10] LABS: CALCIUM 8.7 mg/dL (8.5-10.1)
[2023-05-13 11:11] LABS: BLOOD UREA NITROGEN 44.5 mg/dL (7-18)
[2023-05-13 11:14] LABS: CREATININE 1.6 mg/dL (0.55-1.3)
[2023-05-13] MEDS ORDERED: VANCOMYCIN 1 GRAM (PRE-DOCKED) 1,000 MG/250 ML BAG IVPB ONE (11:16)
[2023-05-13 11:21] LABS: INR 0.93 (0.83-1.09); PROTHROMBIN TIME (PATIENT) 10.8 SEC (9.7-13.0)
[2023-05-13 11:24] LABS: ACTIVATED PTT 27.3 SECONDS (25.2-36.5)
[2023-05-13] MEDS: VANCOMYCIN 1,000 MG in DEXTROSE 5%-WATER - 250 ML IVPB ONE (11:30)
[2023-05-13 13:07] LABS: URINE BARBITURATES NEGATIVE (NEGATIVE)
[2023-05-13 13:08] LABS: COCAINE, UR NEGATIVE (NEGATIVE); PHENCYCLIDINE,URINE NEGATIVE (NEGATIVE); URINE AMPHETAMINES NEGATIVE (NEGATIVE)
[2023-05-13 13:10] LABS: METHADONE, UR POSITIVE (NEGATIVE); OPIATES, URI POSITIVE (NEGATIVE); URINE BENZODIAZEPINES POSITIVE (NEGATIVE)
[2023-05-13] MEDS ORDERED: ALBUTEROL SO4 HFA INHALER IH PRN (16:47)
[2023-05-13] MEDS ORDERED: ALBUTEROL SO4 2.5/IPRATROPIUM 0.5 INH SOL 3 ML VIAL.NEB. NEB ONE (20:13)
[2023-05-13] MEDS: SODIUM CHLORIDE 1,000 ML IV SCH (20:22)
[2023-05-13] MEDS: SODIUM CHLORIDE 250 ML IV STA (21:50)
[2023-05-13] MEDS: MONTELUKAST NA 10 MG TABLET PO SCH (22:06)
[2023-05-13] MEDS: HEPARIN NA (PORCINE) 5,000 UNITS/ML 1ML VIAL SQ SCH (22:06)
[2023-05-13 22:52] LABS: VENOUS BASE EXCESS 2.4 mmol/L (-2-2); VENOUS O2 SATURATION 83.5 % (70-80); VENOUS PCO2 68.8 mmHg (38-52); VENOUS PH 7.274 (7.310-7.410)
[2023-05-14 04:53] LABS: EPI CELLS >36 /uL (0-25.1); HYALINE CASTS 1 /uL (0-3.1); URINE APPEARANCE CLEAR; URINE BACTERIA 48 /uL (0-1359); URINE BILIRUBIN NEGATIVE (NEGATIVE); URINE COLOR YELLOW; URINE GLUCOSE (UA) NEGATIVE (NEGATIVE); URINE KETONE NEGATIVE (NEGATIVE); URINE LEUK ESTERASE 2+ (NEGATIVE); URINE NITRITE NEGATIVE (NEGATIVE); URINE PROTEIN 1+ (NEGATIVE); URINE RBC 23 /uL (0-23.9); URINE UROBILINOGEN 0.2 mg/dL (0.2-1.0); URINE WBC 23 /uL (0-25.8)
[2023-05-14] MEDS: LEVOTHYROXINE NA 25 MCG TABLET (FP) PO SCH (06:24)
[2023-05-14 08:32] LABS: HEMATOCRIT 34.6 % (32.4-45.2); HEMOGLOBIN 11.7 GM/dL (10.7-15.3); MCH 32.9 pg (25.7-33.7); MCHC 33.7 g/dl (32.0-36.0); MEAN CELL VOLUME 97.6 fl (80-96); MEAN PLT VOLUME 8.5 fl (7.5-11.1); PLATELET COUNT 194 10^3/uL (134-434); RBC 3.55 M/mm3 (3.60-5.2); RDW 14.2 % (11.6-15.6); WHITE BLOOD COUNT 18.9 K/mm3 (4.0-10.0)
[2023-05-14 08:40] LABS: POTASSIUM 4.8 mmol/L (3.5-5.1)
[2023-05-14 08:44] LABS: ALBUMIN 2.6 g/dl (3.4-5.0); CALCIUM 8.8 mg/dL (8.5-10.1)
[2023-05-14 08:45] LABS: BLOOD UREA NITROGEN 41.4 mg/dL (7-18)
[2023-05-14 08:47] LABS: CREATININE 1.3 mg/dL (0.55-1.3)
[2023-05-14 08:49] LABS: BILIRUBIN,TOTAL 0.4 mg/dL (0.2-1)
[2023-05-14] MEDS: BUDESONIDE/FORMETEROL FUMARATE 80/4.5 mcg INHALER IH ONE (10:32)
[2023-05-14] MEDS: PANTOPRAZOLE 40 MG TABLET PO SCH (10:34)
[2023-05-14] MEDS: methylPREDNISolone NA SUCC 125 MG/2 ML VIAL IVPUSH ONE (13:21)
[2023-05-14] MEDS: PIPERACILLIN/TAZOB 3.375 GM 3.375 GM in DEXTROSE 5%-WATER - 50 ML IVPB SCH (17:31)
[2023-05-15 08:24] LABS: BASO % 0.1 % (0-2.0); HEMATOCRIT 36.6 % (32.4-45.2); LYMPH % 5.2 % (8-40); MCH 31.7 pg (25.7-33.7); MCHC 32.9 g/dl (32.0-36.0); MEAN CELL VOLUME 96.4 fl (80-96); MONO % 4.3 % (3.8-10.2); NEUT % 90.4 % (42.8-82.8); PLATELET COUNT 199 10^3/uL (134-434); WHITE BLOOD COUNT 12.6 K/mm3 (4.0-10.0)
[2023-05-15 08:40] LABS: POTASSIUM 5.4 mmol/L (3.5-5.1)
[2023-05-15 08:49] LABS: ALBUMIN 2.8 g/dl (3.4-5.0); BLOOD UREA NITROGEN 35.8 mg/dL (7-18); CALCIUM 9.8 mg/dL (8.5-10.1)
[2023-05-15 08:53] LABS: CREATININE 1.3 mg/dL (0.55-1.3)
[2023-05-15 08:54] LABS: TOT PROT 6.4 g/dl (6.4-8.2)
[2023-05-15 08:55] LABS: BILIRUBIN,TOTAL 0.5 mg/dL (0.2-1)
[2023-05-15] MEDS ORDERED: PANTOPRAZOLE 40 MG TABLET PO SCH (10:00)
[2023-05-15] MEDS: ASPIRIN 81 MG CHEWABLE TABLETS PO SCH (10:32)
[2023-05-15] MEDS: FUROSEMIDE 40 MG TABLET (FP) PO SCH (10:32)
[2023-05-15] MEDS: SODIUM ZIRCONIUM CYCLOSILICATE (LOKELMA) 5 GM PACKET PO SCH (13:27)
[2023-05-15] MEDS: methaDONE 40 MG, methaDONE 30 MG PO SCH (14:00)
[2023-05-15] MEDS: methaDONE HCL 10 MG TABLET PO SCH (18:41)
[2023-05-15] MEDS: BUDESONIDE/FORMETEROL FUMARATE 160/4.5 mcg INHALER IH SCH (21:29)
[2023-05-16 07:59] LABS: BASO % 0.1 % (0-2.0); EOS % 0.2 % (0-4.5); HEMATOCRIT 35.2 % (32.4-45.2); HEMOGLOBIN 11.9 GM/dL (10.7-15.3); LYMPH % 14.4 % (8-40); MCH 32.5 pg (25.7-33.7); MCHC 33.9 g/dl (32.0-36.0); MEAN CELL VOLUME 95.8 fl (80-96); MEAN PLT VOLUME 8.6 fl (7.5-11.1); MONO % 5.3 % (3.8-10.2); PLATELET COUNT 221 10^3/uL (134-434); RBC 3.68 M/mm3 (3.60-5.2); RDW 14.1 % (11.6-15.6); WHITE BLOOD COUNT 11.3 K/mm3 (4.0-10.0)
[2023-05-16 08:09] LABS: POTASSIUM 3.9 mmol/L (3.5-5.1)
[2023-05-16 08:11] LABS: ALBUMIN 2.7 g/dl (3.4-5.0); BLOOD UREA NITROGEN 39.8 mg/dL (7-18)
[2023-05-16 08:14] LABS: CREATININE 1.5 mg/dL (0.55-1.3)
[2023-05-16 08:15] LABS: BILIRUBIN,TOTAL 0.4 mg/dL (0.2-1)
[2023-05-16 08:16] LABS: TOT PROT 6.4 g/dl (6.4-8.2)
[2023-05-17 07:55] LABS: POTASSIUM 4.1 mmol/L (3.5-5.1)
[2023-05-17 07:58] LABS: HEMATOCRIT 35.4 % (32.4-45.2); MCH 32.5 pg (25.7-33.7); MCHC 33.8 g/dl (32.0-36.0); MEAN CELL VOLUME 95.9 fl (80-96); MEAN PLT VOLUME 8.6 fl (7.5-11.1); PLATELET COUNT 216 10^3/uL (134-434); RBC 3.69 M/mm3 (3.60-5.2); RDW 13.8 % (11.6-15.6); WHITE BLOOD COUNT 11.2 K/mm3 (4.0-10.0)
[2023-05-17 08:01] LABS: ALBUMIN 2.6 g/dl (3.4-5.0); BLOOD UREA NITROGEN 44.6 mg/dL (7-18); CALCIUM 8.8 mg/dL (8.5-10.1)
[2023-05-17 08:04] LABS: CREATININE 1.6 mg/dL (0.55-1.3)
[2023-05-17 08:06] LABS: BILIRUBIN,TOTAL 0.3 mg/dL (0.2-1); TOT PROT 5.9 g/dl (6.4-8.2)
[2023-05-17 09:21] LABS: ANISOCYTOSIS 0; MACROCYTOSIS 0
[2023-05-17 13:44] VITALS: TEMP 97.9
[2023-05-17 14:04] VITALS: BP 145/89; PULSE 93; RESP 16
== END 2023-05-17 14:06 | disposition home or self-care (01) | DRG 917 ==
LOC: JER 06:20 → JERBED 16:20 → J4S 20:46
PROVIDERS: ADMIT Internal Medicine; ATTEND Internal Medicine
DX: T40.601A Poisoning by unspecified narcotics, accidental (unintentional), initial encounter (principal); J96.01 Acute respiratory failure with hypoxia; J96.02 Acute respiratory failure with hypercapnia; E87.20 Acidosis, unspecified; X58.XXXA Exposure to other specified factors, initial encounter; Y93.9 Activity, unspecified; Y92.9 Unspecified place or not applicable; K21.9 Gastro-esophageal reflux disease without esophagitis; E11.9 Type 2 diabetes mellitus without complications; E03.9 Hypothyroidism, unspecified
CPT/HCPCS: 0241U-QW; 36415; 71045-TC-FY; 74177-TC; 80048; 80053; 80307; 81003; 82550; 82803; 82962; 83036; 83605; 83735; 83880; 84443; 84484; 85025; 85610; 85730; 86850; 86900; 86901; 87040; 87086; 93005; 93010; 94640; 97116-GP; 97161-GP; 99285-25; J1644

== ENCOUNTER 2023-05-24 08:23 | Inpatient (IN) | payer OTHER ==
[2023-05-24 09:12] VITALS: BMI 40.0
[2023-05-24] MEDS ORDERED: ACETAMINOPHEN 325 MG TABLET (FP) PO PRN (10:08)
[2023-05-24] MEDS ORDERED: IBUPROFEN 600 MG TABLET (FP) PO PRN (10:21)
[2023-05-24] MEDS ORDERED: NALOXONE HCL 0.4 MG/ML VIAL IM PRN (10:21)
[2023-05-24] MEDS ORDERED: guaiFENesin 600 MG TABLET.ER (FP) PO PRN (10:21)
[2023-05-24] MEDS ORDERED: POLYETHYLENE GLYCOL (HEALTHYLAX) 3350 17 GM PACKET PO PRN (10:21)
[2023-05-24] MEDS ORDERED: MAG HYDROX/AL HYDROX/SIMETH 30 ML UNIT-DOSE CUP PO PRN (10:21)
[2023-05-24] MEDS ORDERED: BENZONATATE 200 MG CAPSULE PO PRN (10:21)
[2023-05-24] MEDS ORDERED: NICOTINE POLACRILEX 2 MG GUM BUC PRN (10:21)
[2023-05-24] MEDS ORDERED: NALOXONE HCL (KLOXXADO) 8 MG SPRAY NS PRN (10:21)
[2023-05-24] MEDS ORDERED: LOPERAMIDE HCL 2 MG CAPSULE PO PRN (10:21)
[2023-05-24] MEDS ORDERED: NICOTINE POLACRILEX 2 MG LOZENGE BC PRN (10:21)
[2023-05-24] MEDS ORDERED: BENZOCAINE/MENTHOL (CHLORASEPTIC ) LOZENGE MM PRN (10:21)
[2023-05-24] MEDS ORDERED: MAGNESIUM HYDROX 2400MG/30ML ORAL SUSPENSION 30 ML CUP PO PRN (10:21)
[2023-05-24] MEDS ORDERED: IBUPROFEN 400 MG TABLET (FP) PO PRN (10:21)
[2023-05-24] MEDS ORDERED: P-EPHED 60MG/TRIPROLIDI 2.5MG TABLET PO PRN (10:21)
[2023-05-24] MEDS: ASPIRIN 81 MG CHEWABLE TABLETS PO SCH (11:27)
[2023-05-24] MEDS ORDERED: ASPIRIN 81 MG CHEWABLE TABLETS ONE (11:28)
[2023-05-24] MEDS: BUDESONIDE/FORMETEROL FUMARATE 160/4.5 mcg INHALER IH SCH (12:40)
[2023-05-24] MEDS: PANTOPRAZOLE 40 MG TABLET PO SCH (12:40)
[2023-05-24] MEDS ORDERED: TUBERCULIN PPD 5 TU/0.1ML VIAL ID ONE ×2 (16:32→16:37)
[2023-05-24] MEDS: THIAMINE HCL 100 MG TABLET (FP) PO SCH (21:44)
[2023-05-24] MEDS: MONTELUKAST NA 10 MG TABLET PO SCH (21:44)
[2023-05-25] MEDS ORDERED: methaDONE HCL 10 MG TABLET PO SCH (06:00)
[2023-05-25] MEDS: methaDONE 40 MG, methaDONE 30 MG PO SCH (06:49)
[2023-05-25] MEDS: ALBUTEROL SO4 HFA INHALER IH PRN (06:50)
[2023-05-25] MEDS: LEVOTHYROXINE NA 25 MCG TABLET (FP) PO SCH (06:58)
[2023-05-25 07:29] VITALS: BP 157/70; PULSE 92; RESP 18; TEMP 97.4
[2023-05-25] MEDS: PRENATAL VITAMINS W/ FOLIC ACID TABLET (FP) PO SCH (09:39)
[2023-05-25 12:49] LABS: POTASSIUM 4.7 mmol/L (3.5-5.1)
[2023-05-25 12:54] LABS: CALCIUM 9.9 mg/dL (8.5-10.1)
[2023-05-25 12:55] LABS: BLOOD UREA NITROGEN 35.3 mg/dL (7-18)
[2023-05-25 12:58] LABS: BILIRUBIN,TOTAL 0.2 mg/dL (0.2-1); CREATININE 1.6 mg/dL (0.55-1.3)
[2023-05-25 13:04] LABS: HEMATOCRIT 39.5 % (32.4-45.2); HEMOGLOBIN 12.6 GM/dL (10.7-15.3); MCH 31.3 pg (25.7-33.7); MEAN PLT VOLUME 8.6 fl (7.5-11.1); PLATELET COUNT 301 10^3/uL (134-434); RBC 4.03 M/mm3 (3.60-5.2); WHITE BLOOD COUNT 11.4 K/mm3 (4.0-10.0)
[2023-05-25 15:25] LABS: EPI CELLS 23 /uL (0-25.1); HYALINE CASTS 1 /uL (0-3.1); PH,URINE 5.5 (5.0-8.0); URINE APPEARANCE CLEAR; URINE BACTERIA 3 /uL (0-1359); URINE BILIRUBIN NEGATIVE (NEGATIVE); URINE COLOR YELLOW; URINE GLUCOSE (UA) NEGATIVE (NEGATIVE); URINE KETONE NEGATIVE (NEGATIVE); URINE LEUK ESTERASE NEGATIVE (NEGATIVE); URINE NITRITE NEGATIVE (NEGATIVE); URINE PROTEIN 1+ (NEGATIVE); URINE RBC 23 /uL (0-23.9); URINE UROBILINOGEN 0.2 mg/dL (0.2-1.0); URINE WBC 12 /uL (0-25.8)
== END 2023-05-25 17:05 | disposition left against medical advice (07) | DRG 894 ==
LOC: YASAS 08:23 → Y5N 14:09
PROVIDERS: ADMIT Allergy & Immunology; ATTEND Psychiatry & Neurology Pain Medicine
PROC: HZ42ZZZ Group Counseling for Substance Abuse Treatment, Cognitive-Behavioral (ICD-10-PCS; principal; 2023-05-24)
DX: F11.20 Opioid dependence, uncomplicated (principal); F12.20 Cannabis dependence, uncomplicated; F17.210 Nicotine dependence, cigarettes, uncomplicated; G47.30 Sleep apnea, unspecified; J44.9 Chronic obstructive pulmonary disease, unspecified; Z99.81 Dependence on supplemental oxygen; E11.9 Type 2 diabetes mellitus without complications; N18.9 Chronic kidney disease, unspecified; E11.22 Type 2 diabetes mellitus with diabetic chronic kidney disease; K21.9 Gastro-esophageal reflux disease without esophagitis
CPT/HCPCS: 0241U-QW; 36415; 80053; 80305; 81003; 85027; 86780

== ENCOUNTER 2023-09-02 11:33 | Emergency (ER) | payer OTHER ==
[2023-09-02 11:41] VITALS: BP 144/61; PULSE 75; RESP 18; TEMP 98; BMI 42.4
[2023-09-02 13:55] LABS: URINE APPEARANCE CLOUDY; URINE BILIRUBIN NEGATIVE (NEGATIVE); URINE COLOR RED; URINE GLUCOSE (UA) NEGATIVE (NEGATIVE); URINE KETONE NEGATIVE (NEGATIVE); URINE LEUK ESTERASE TRACE (NEGATIVE); URINE NITRITE NEGATIVE (NEGATIVE); URINE PROTEIN 1+ (NEGATIVE); URINE UROBILINOGEN 0.2 mg/dL (0.2-1.0)
[2023-09-02 14:58] LABS: EPI CELLS 49.2 /uL (0-25.1); HYALINE CASTS 0.73 /uL (0-3.1); URINE BACTERIA 166.2 /uL (0-1359); URINE RBC 10.3 /uL (0-23.9); URINE WBC 34.4 /uL (0-25.8)
[2023-09-02 14:59] LABS: YEAST NOT PRESENT (NEGATIVE)
== END 2023-09-02 17:21 | disposition home or self-care (01) ==
LOC: JER 11:33
DX: R31.9 Hematuria, unspecified (principal); R35.0 Frequency of micturition; R39.15 Urgency of urination
CPT/HCPCS: 74176-TC; 81003; 87086; 99284-25

== ENCOUNTER 2023-10-30 10:10 | Observation (INO) | payer OTHER ==
[2023-10-30 12:25] LABS: BASO % 0.5 % (0-2.0); EOS % 0.5 % (0-4.5); HEMATOCRIT 40.3 % (32.4-45.2); HEMOGLOBIN 13.2 GM/dL (10.7-15.3); MCH 31.4 pg (25.7-33.7); MCHC 32.8 g/dl (32.0-36.0); MEAN CELL VOLUME 95.7 fl (80-96); MEAN PLT VOLUME 8.6 fl (7.5-11.1); MONO % 3.1 % (3.8-10.2); NEUT % 84.9 % (42.8-82.8); PLATELET COUNT 221 10^3/uL (134-434); RBC 4.21 M/mm3 (3.60-5.2); RDW 14.3 % (11.6-15.6); WHITE BLOOD COUNT 8.4 K/mm3 (4.0-10.0)
[2023-10-30] MEDS ORDERED: ALBUTEROL SO4 2.5/IPRATROPIUM 0.5 INH SOL 3 ML VIAL.NEB. NEB ONE (12:50)
[2023-10-30 12:52] LABS: POTASSIUM 5.8 mmol/L (3.5-5.1)
[2023-10-30 12:55] LABS: ALBUMIN 3.5 g/dl (3.4-5.0); CALCIUM 9.9 mg/dL (8.5-10.1)
[2023-10-30 12:56] LABS: BLOOD UREA NITROGEN 18.2 mg/dL (7-18)
[2023-10-30 12:58] LABS: CREATININE 1.7 mg/dL (0.55-1.3)
[2023-10-30 13:01] LABS: BILIRUBIN,TOTAL 0.3 mg/dL (0.2-1); TOT PROT 7.5 g/dl (6.4-8.2)
[2023-10-30] MEDS: ALBUTEROL SO4 2.5/IPRATROPIUM 0.5 INH SOL 3 ML VIAL.NEB. NEB ONE (13:05)
[2023-10-30] MEDS ORDERED: PIPERACILLIN/TAZOB 3.375 GM 3.375 GM/50 ML BAG IVPB ONE ×2 (13:40→18:56)
[2023-10-30 13:46] LABS: MAGNESIUM 1.9 mg/dL (1.8-2.4)
[2023-10-30] MEDS: PIPERACILLIN/TAZOB 3.375 GM 3.375 GM in DEXTROSE 5%-WATER - 50 ML IVPB ONE (13:46)
[2023-10-30 13:55] LABS: N-TERMINAL BNP 790.4 pg/ml (5-125)
[2023-10-30] MEDS: methylPREDNISolone NA SUCC 125 MG/2 ML VIAL IVPUSH ONE (14:17)
[2023-10-30] MEDS ORDERED: ALBUTEROL SO4 2.5/IPRATROPIUM 0.5 INH SOL 3 ML VIAL.NEB. NEB PRN (15:28)
[2023-10-30] MEDS: FUROSEMIDE 40 MG/4 ML INJECTABLE VIAL IVPUSH SCH (16:40)
[2023-10-30] MEDS ORDERED: INSULIN ASPART SLIDING SCALE (NOVOLOG) 1 VIAL SQ ONE (16:42)
[2023-10-30] MEDS: INSULIN ASPART SLIDING SCALE (NOVOLOG) 1 VIAL SQ SCH (16:44)
[2023-10-30] MEDS ORDERED: methylPREDNISolone NA SUCC 40 MG/1 ML VIAL ONE (18:57)
[2023-10-30] MEDS: PIPERACILLIN/TAZOB 3.375 GM 3.375 GM in DEXTROSE 5%-WATER - 50 ML IVPB SCH (19:09)
[2023-10-30] MEDS: methylPREDNISolone NA SUCC 40 MG/1 ML VIAL IVPUSH SCH (19:09)
[2023-10-30] MEDS ORDERED: MONTELUKAST NA 10 MG TABLET ONE (22:12)
[2023-10-30] MEDS ORDERED: ALPRAZolam 0.25 MG TABLET ONE (22:12)
[2023-10-30] MEDS: ALPRAZolam 0.25 MG TABLET PO SCH (22:18)
[2023-10-30] MEDS: MONTELUKAST NA 10 MG TABLET PO SCH (22:18)
[2023-10-30] MEDS: BUDESONIDE/FORMETEROL FUMARATE 160/4.5 mcg INHALER IH SCH (23:33)
[2023-10-31] MEDS ORDERED: PIPERACILLIN/TAZOB 3.375 GM 3.375 GM/50 ML BAG IVPB ONE ×2 (01:22→09:36)
[2023-10-31] MEDS ORDERED: methylPREDNISolone NA SUCC 40 MG/1 ML VIAL ONE ×2 (01:22→09:32)
[2023-10-31] MEDS ORDERED: LEVOTHYROXINE NA 25 MCG TABLET (FP) ONE (06:35)
[2023-10-31] MEDS ORDERED: INSULIN ASPART SLIDING SCALE (NOVOLOG) 1 VIAL SQ ONE (06:36)
[2023-10-31] MEDS: LEVOTHYROXINE NA 25 MCG TABLET (FP) PO SCH (06:39)
[2023-10-31 08:50] LABS: HEMATOCRIT 42.2 % (32.4-45.2); HEMOGLOBIN 13.7 GM/dL (10.7-15.3); MCH 30.9 pg (25.7-33.7); MCHC 32.3 g/dl (32.0-36.0); MEAN CELL VOLUME 95.7 fl (80-96); PLATELET COUNT 229 10^3/uL (134-434); RBC 4.42 M/mm3 (3.60-5.2); RDW 14.1 % (11.6-15.6); WHITE BLOOD COUNT 8.1 K/mm3 (4.0-10.0)
[2023-10-31 09:06] LABS: POTASSIUM 5.1 mmol/L (3.5-5.1)
[2023-10-31 09:08] LABS: CALCIUM 9.7 mg/dL (8.5-10.1)
[2023-10-31 09:09] LABS: ALBUMIN 3.3 g/dl (3.4-5.0); BLOOD UREA NITROGEN 27.3 mg/dL (7-18)
[2023-10-31 09:12] LABS: CREATININE 1.7 mg/dL (0.55-1.3)
[2023-10-31 09:13] LABS: BILIRUBIN,TOTAL 0.4 mg/dL (0.2-1); TOT PROT 7.5 g/dl (6.4-8.2)
[2023-10-31] MEDS ORDERED: ENOXAPARIN NA (PORCINE) 40 MG/0.4 ML DISP.SYRIN SQ ONE (09:31)
[2023-10-31] MEDS ORDERED: ALPRAZolam 0.25 MG TABLET ONE (09:31)
[2023-10-31] MEDS ORDERED: FUROSEMIDE 40 MG/4 ML INJECTABLE VIAL ONE (09:32)
[2023-10-31] MEDS: PANTOPRAZOLE 40 MG TABLET PO SCH (09:57)
[2023-10-31] MEDS: ASPIRIN 81 MG CHEWABLE TABLETS PO SCH (09:57)
[2023-10-31] MEDS: ENOXAPARIN NA (PORCINE) 40 MG/0.4 ML DISP.SYRIN SQ SCH (09:57)
[2023-10-31] MEDS ORDERED: FUROSEMIDE 40 MG TABLET (FP) PO SCH (10:00)
[2023-10-31 10:20] LABS: ANISOCYTOSIS 0; HELMET CELLS 0; HOWELL-JOLLY BODIES 0; MACROCYTOSIS 0; OVALOCYTE 0; ROULEAU 0; SICKELED CELLS 0; TARGET CELLS 0; TEAR DROP CELLS 0; TOXIC GRANULATION 0
[2023-10-31] MEDS ORDERED: ACETAMINOPHEN INJECTION 100 ML IVPB ONE (12:50)
[2023-10-31] MEDS ORDERED: methaDONE HCL 40 MG DISPERSABLE TABLET ONE (12:50)
[2023-10-31] MEDS: ACETAMINOPHEN 1000 MG/100 ML BAG IVPB PRN (12:57)
[2023-10-31] MEDS: methaDONE HCL 40 MG DISPERSABLE TABLET PO SCH (12:57)
[2023-10-31] MEDS ORDERED: methaDONE HCL 40 MG DISPERSABLE TABLET PO SCH (13:00)
[2023-10-31 15:54] LABS: EPI CELLS 22 /uL (0-25.1); HYALINE CASTS 0 /uL (0-3.1); PH,URINE 5.5 (5.0-8.0); URINE APPEARANCE CLEAR; URINE BACTERIA 6 /uL (0-1359); URINE BILIRUBIN NEGATIVE (NEGATIVE); URINE COLOR YELLOW; URINE GLUCOSE (UA) 2+ (NEGATIVE); URINE KETONE NEGATIVE (NEGATIVE); URINE LEUK ESTERASE NEGATIVE (NEGATIVE); URINE NITRITE NEGATIVE (NEGATIVE); URINE PROTEIN 2+ (NEGATIVE); URINE RBC 9 /uL (0-23.9); URINE UROBILINOGEN 0.2 mg/dL (0.2-1.0); URINE WBC 2 /uL (0-25.8)
[2023-10-31 15:59] LABS: OPIATES, URI NEGATIVE (NEGATIVE); PHENCYCLIDINE,URINE NEGATIVE (NEGATIVE); URINE BARBITURATES NEGATIVE (NEGATIVE); URINE BENZODIAZEPINES NEGATIVE (NEGATIVE)
[2023-10-31 16:06] LABS: COCAINE, UR NEGATIVE (NEGATIVE); METHADONE, UR POSITIVE (NEGATIVE); URINE AMPHETAMINES NEGATIVE (NEGATIVE)
[2023-10-31 16:43] VITALS: BMI 41.8
[2023-10-31] MEDS: methaDONE HCL 10 MG TABLET PO SCH (16:55)
[2023-10-31] MEDS: PIPERACILLIN/TAZOB 3.375 GM 3.375 GM in DEXTROSE 5%-WATER - 50 ML IVPB SCH (18:20)
[2023-10-31] MEDS: DOXEPIN HCL 3 MG PO SCH (18:21)
[2023-10-31] MEDS: PATIENT'S OWN MEDICATION (NON-FORMULARY) (Omeprazole 20 MG Capsule.Dr) PO SCH (18:47)
[2023-10-31] MEDS: LISINOPRIL 5 MG TABLET PO SCH (18:54)
[2023-10-31] MEDS: DONEPEZIL HCL 5 MG TABLET (FP) PO SCH (18:55)
[2023-10-31] MEDS: VARENICLINE TARTRATE 0.5 MG TAB PO SCH (19:41)
[2023-11-01] MEDS ORDERED: methaDONE HCL 40 MG DISPERSABLE TABLET PO SCH (06:00)
[2023-11-01 09:57] LABS: POTASSIUM 4.5 mmol/L (3.5-5.1)
[2023-11-01] MEDS ORDERED: PATIENT'S OWN MEDICATION (NON-FORMULARY) (Dapagliflozin Propanediol [Farxiga] 5 MG Tablet) PO SCH (10:00)
[2023-11-01 10:01] LABS: CALCIUM 10.2 mg/dL (8.5-10.1)
[2023-11-01 10:03] LABS: ALBUMIN 3.6 g/dl (3.4-5.0); BLOOD UREA NITROGEN 39.1 mg/dL (7-18)
[2023-11-01 10:07] LABS: CREATININE 1.8 mg/dL (0.55-1.3)
[2023-11-01 10:08] LABS: BILIRUBIN,TOTAL 0.3 mg/dL (0.2-1); TOT PROT 7.8 g/dl (6.4-8.2)
[2023-11-02 09:06] LABS: HEMATOCRIT 38.9 % (32.4-45.2); HEMOGLOBIN 12.7 GM/dL (10.7-15.3); MCH 30.9 pg (25.7-33.7); MCHC 32.5 g/dl (32.0-36.0); MEAN CELL VOLUME 95.1 fl (80-96); MEAN PLT VOLUME 8.9 fl (7.5-11.1); PLATELET COUNT 211 10^3/uL (134-434); RBC 4.09 M/mm3 (3.60-5.2); RDW 14.3 % (11.6-15.6); WHITE BLOOD COUNT 9.3 K/mm3 (4.0-10.0)
[2023-11-02 09:16] LABS: POTASSIUM 4.6 mmol/L (3.5-5.1)
[2023-11-02 09:20] LABS: ALBUMIN 3.4 g/dl (3.4-5.0); CALCIUM 9.8 mg/dL (8.5-10.1)
[2023-11-02 09:21] LABS: BLOOD UREA NITROGEN 45.3 mg/dL (7-18)
[2023-11-02 09:24] LABS: CREATININE 1.8 mg/dL (0.55-1.3)
[2023-11-02 09:25] LABS: BILIRUBIN,TOTAL 0.4 mg/dL (0.2-1)
[2023-11-02 09:28] LABS: TOT PROT 6.8 g/dl (6.4-8.2)
[2023-11-02 10:52] LABS: ANISOCYTOSIS 0; MACROCYTOSIS 0
[2023-11-02] MEDS: methylPREDNISolone NA SUCC 40 MG/1 ML VIAL IVPUSH SCH (21:50)
[2023-11-02 22:14] VITALS: RESP 20
[2023-11-03 15:21] VITALS: BP 139/80; PULSE 95; TEMP 98.1
[2023-11-04] MEDS ORDERED: predniSONE 20 MG TABLET (UD) PO SCH (10:00)
== END 2023-11-03 15:24 | disposition home or self-care (01) ==
LOC: JER 10:10 → JERBED 13:27 → UNDOADMOB 13:27 → INTOOBSV 13:27 → JERBED 10-31 12:17 → J8W 10-31 14:35
PROVIDERS: ADMIT Internal Medicine; ATTEND Internal Medicine
PROC: 3E0F7GC Introduction of Other Therapeutic Substance into Respiratory Tract, Via Natural or Artificial Opening (ICD-10-PCS; principal; 2023-10-31)
PROC: 3E033NZ Introduction of Analgesics, Hypnotics, Sedatives into Peripheral Vein, Percutaneous Approach (ICD-10-PCS; 2023-10-31)
PROC: 3E023GC Introduction of Other Therapeutic Substance into Muscle, Percutaneous Approach (ICD-10-PCS; 2023-10-31)
PROC: 3E013VG Introduction of Insulin into Subcutaneous Tissue, Percutaneous Approach (ICD-10-PCS; 2023-10-31)
PROC: 3E033GC Introduction of Other Therapeutic Substance into Peripheral Vein, Percutaneous Approach (ICD-10-PCS; 2023-10-31)
PROC: 3E03329 Introduction of Other Anti-infective into Peripheral Vein, Percutaneous Approach (ICD-10-PCS; 2023-10-31)
DX: J44.1 Chronic obstructive pulmonary disease with (acute) exacerbation (principal); E87.70 Fluid overload, unspecified; E11.22 Type 2 diabetes mellitus with diabetic chronic kidney disease; I10 Essential (primary) hypertension; N18.9 Chronic kidney disease, unspecified; E66.01 Morbid (severe) obesity due to excess calories; Z68.41 Body mass index [BMI] 40.0-44.9, adult; N17.9 Acute kidney failure, unspecified; G47.30 Sleep apnea, unspecified; G89.29 Other chronic pain; M54.50 Low back pain, unspecified; E11.9 Type 2 diabetes mellitus without complications; F11.20 Opioid dependence, uncomplicated; I73.9 Peripheral vascular disease, unspecified; K21.9 Gastro-esophageal reflux disease without esophagitis; E03.9 Hypothyroidism, unspecified; G62.9 Polyneuropathy, unspecified; Z99.81 Dependence on supplemental oxygen; M62.81 Muscle weakness (generalized); F17.210 Nicotine dependence, cigarettes, uncomplicated
CPT/HCPCS: 0241U-QW; 36415; 71046-TC-FY; 71250-TC; 80053; 80061; 80307; 81003; 82962; 83036; 83735; 83880; 84439; 84443; 84484; 85025; 93005; 93010; 93306-TC; 94010; 94640; 96365; 96372; 96375; 97116-GP; 99285-25; G0378; J0131

== ENCOUNTER 2023-11-24 08:35 | Inpatient (IN) | payer OTHER ==
[2023-11-24] MEDS ORDERED: ALBUTEROL SO4 2.5/IPRATROPIUM 0.5 INH SOL 3 ML VIAL.NEB. NEB ONE (10:44)
[2023-11-24] MEDS: ALBUTEROL SO4 2.5/IPRATROPIUM 0.5 INH SOL 3 ML VIAL.NEB. NEB ONE (11:01)
[2023-11-24 11:06] LABS: BASO % 0.5 % (0-2.0); EOS % 0.2 % (0-4.5); HEMATOCRIT 36.9 % (32.4-45.2); LYMPH % 7.3 % (8-40); MCH 30.4 pg (25.7-33.7); MCHC 32.5 g/dl (32.0-36.0); MEAN CELL VOLUME 93.5 fl (80-96); MEAN PLT VOLUME 8.5 fl (7.5-11.1); MONO % 4.3 % (3.8-10.2); NEUT % 87.7 % (42.8-82.8); PLATELET COUNT 191 10^3/uL (134-434); RBC 3.95 M/mm3 (3.60-5.2); RDW 14.4 % (11.6-15.6); WHITE BLOOD COUNT 16.4 K/mm3 (4.0-10.0)
[2023-11-24 11:08] LABS: VENOUS BASE EXCESS 0.7 mmol/L (-2-2); VENOUS O2 SATURATION 51.7 % (70-80); VENOUS PCO2 68.2 mmHg (38-52); VENOUS PH 7.255 (7.310-7.410)
[2023-11-24 11:18] LABS: POTASSIUM 5.4 mmol/L (3.5-5.1)
[2023-11-24 11:21] LABS: ALBUMIN 2.8 g/dl (3.4-5.0); BLOOD UREA NITROGEN 29.6 mg/dL (7-18)
[2023-11-24 11:24] LABS: CREATININE 2.1 mg/dL (0.55-1.3)
[2023-11-24 11:25] LABS: BILIRUBIN,TOTAL 0.3 mg/dL (0.2-1)
[2023-11-24 11:26] LABS: TOT PROT 6.2 g/dl (6.4-8.2)
[2023-11-24 11:50] LABS: N-TERMINAL BNP 424.7 pg/ml (5-125)
[2023-11-24 12:13] LABS: HIV INTERPRETATION NEGATIVE (NEGATIVE)
[2023-11-24] MEDS: DEXAMETHASONE SOD PHOSPHATE 10 MG/1 ML VIAL IM ONE (12:26)
[2023-11-24] MEDS ORDERED: DEXAMETHASONE SOD PHOSPHATE 10 MG/1 ML VIAL ONE (12:27)
[2023-11-24] MEDS: DEXAMETHASONE SOD PHOSPHATE 10 MG/1 ML VIAL IVPUSH ONE (12:31)
[2023-11-24] MEDS ORDERED: buPROPion HCL 100 MG TABLET ONE (15:47)
[2023-11-24] MEDS ORDERED: methylPREDNISolone NA SUCC 40 MG/1 ML VIAL ONE (17:31)
[2023-11-24] MEDS ORDERED: INSULIN ASPART SLIDING SCALE (NOVOLOG) 1 VIAL SQ ONE ×3 (17:33→23:04)
[2023-11-24] MEDS: INSULIN ASPART SLIDING SCALE (NOVOLOG) 1 VIAL SQ SCH (17:37)
[2023-11-24] MEDS: methylPREDNISolone NA SUCC 40 MG/1 ML VIAL IVPUSH SCH (17:38)
[2023-11-24] MEDS ORDERED: SODIUM CHLORIDE 1,000 ML IV SCH (17:45)
[2023-11-24] MEDS: INSULIN (LEVEMIR) 100 UNITS/ML UNITS SQ ONE (18:16)
[2023-11-24] MEDS ORDERED: INSULIN (LEVEMIR) 100 UNITS/ML UNITS SQ ONE (18:16)
[2023-11-24] MEDS: BUDESONIDE/FORMETEROL FUMARATE 160/4.5 mcg INHALER IH SCH (22:44)
[2023-11-24] MEDS ORDERED: ALPRAZolam 0.25 MG TABLET ONE (22:52)
[2023-11-24] MEDS ORDERED: MONTELUKAST NA 10 MG TABLET ONE (22:52)
[2023-11-24] MEDS: MONTELUKAST NA 10 MG TABLET PO SCH (22:58)
[2023-11-24] MEDS: ALPRAZolam 0.25 MG TABLET PO SCH (22:58)
[2023-11-25] MEDS: ACETAMINOPHEN 500 MG TABLET (FP) PO ONE (03:25)
[2023-11-25 03:54] VITALS: BMI 43.7
[2023-11-25] MEDS: methaDONE HCL 40 MG DISPERSABLE TABLET PO SCH (06:48)
[2023-11-25] MEDS: EMPAGLIFLOZIN (JARDIANCE) 10 MG TABLET PO SCH (06:52)
[2023-11-25] MEDS: LEVOTHYROXINE NA 25 MCG TABLET (FP) PO SCH (06:53)
[2023-11-25] MEDS ORDERED: PATIENT'S OWN MEDICATION (NON-FORMULARY) (Magnesium Oxide [Magnesium] 400 MG Tablet) PO SCH (10:00)
[2023-11-25] MEDS ORDERED: PATIENT'S OWN MEDICATION (NON-FORMULARY) (Dapagliflozin Propanediol [Farxiga] 5 MG Tablet) PO SCH (10:00)
[2023-11-25] MEDS: MAGNESIUM OXIDE 400 MG TABLET (FP) PO SCH (10:13)
[2023-11-25] MEDS: DONEPEZIL HCL 5 MG TABLET (FP) PO SCH (10:13)
[2023-11-25] MEDS: LISINOPRIL 5 MG TABLET PO SCH (10:14)
[2023-11-25] MEDS: FUROSEMIDE 40 MG/4 ML INJECTABLE VIAL IVPUSH SCH (10:14)
[2023-11-25] MEDS: ENOXAPARIN NA (PORCINE) 40 MG/0.4 ML DISP.SYRIN SQ SCH (10:14)
[2023-11-25] MEDS: ASPIRIN 81 MG CHEWABLE TABLETS PO SCH (10:14)
[2023-11-25 10:43] LABS: HEMATOCRIT 38.8 % (32.4-45.2); HEMOGLOBIN 12.4 GM/dL (10.7-15.3); MCH 30.1 pg (25.7-33.7); MCHC 31.9 g/dl (32.0-36.0); MEAN CELL VOLUME 94.5 fl (80-96); MEAN PLT VOLUME 8.9 fl (7.5-11.1); PLATELET COUNT 200 10^3/uL (134-434); RBC 4.11 M/mm3 (3.60-5.2); RDW 14.6 % (11.6-15.6); WHITE BLOOD COUNT 15.6 K/mm3 (4.0-10.0)
[2023-11-25 11:09] LABS: POTASSIUM 5.1 mmol/L (3.5-5.1)
[2023-11-25 11:13] LABS: CALCIUM 9.7 mg/dL (8.5-10.1)
[2023-11-25 11:14] LABS: ALBUMIN 2.8 g/dl (3.4-5.0)
[2023-11-25 11:17] LABS: CREATININE 1.8 mg/dL (0.55-1.3)
[2023-11-25 11:18] LABS: BILIRUBIN,TOTAL 0.5 mg/dL (0.2-1); TOT PROT 6.6 g/dl (6.4-8.2)
[2023-11-25] MEDS ORDERED: INSULIN ASPART SLIDING SCALE (NOVOLOG) 1 VIAL SQ ONE ×2 (11:21→17:04)
[2023-11-25 12:39] LABS: ANISOCYTOSIS 0; HELMET CELLS 0; HOWELL-JOLLY BODIES 0; MACROCYTOSIS 0; OVALOCYTE 0; ROULEAU 0; SICKELED CELLS 0; TARGET CELLS 0; TEAR DROP CELLS 0; TOXIC GRANULATION 0
[2023-11-26 10:25] LABS: HEMATOCRIT 36.3 % (32.4-45.2); HEMOGLOBIN 11.9 GM/dL (10.7-15.3); MCH 30.8 pg (25.7-33.7); MCHC 32.9 g/dl (32.0-36.0); MEAN CELL VOLUME 93.9 fl (80-96); MEAN PLT VOLUME 9.3 fl (7.5-11.1); PLATELET COUNT 217 10^3/uL (134-434); RBC 3.87 M/mm3 (3.60-5.2); RDW 14.6 % (11.6-15.6)
[2023-11-26 10:52] LABS: POTASSIUM 5.5 mmol/L (3.5-5.1)
[2023-11-26] MEDS ORDERED: INSULIN ASPART SLIDING SCALE (NOVOLOG) 1 VIAL SQ ONE ×2 (10:56→16:33)
[2023-11-26 11:08] LABS: BILIRUBIN,TOTAL 0.3 mg/dL (0.2-1); TOT PROT 6.3 g/dl (6.4-8.2)
[2023-11-26 11:10] LABS: ALBUMIN 2.6 g/dl (3.4-5.0); BLOOD UREA NITROGEN 34.1 mg/dL (7-18)
[2023-11-26 11:11] LABS: CALCIUM 10.1 mg/dL (8.5-10.1)
[2023-11-26 11:14] LABS: CREATININE 1.7 mg/dL (0.55-1.3)
[2023-11-26 11:46] LABS: ANISOCYTOSIS 0; MACROCYTOSIS 0
[2023-11-26 11:50] LABS: PLATELET ESTIMATE ADEQUATE
[2023-11-26] MEDS: SODIUM ZIRCONIUM CYCLOSILICATE (LOKELMA) 5 GM PACKET PO SCH (15:46)
[2023-11-26] MEDS: ACETAMINOPHEN 500 MG TABLET (FP) PO PRN (20:19)
[2023-11-26] MEDS: ATORVASTATIN CA 10 MG TABLET (FP) PO SCH (21:15)
[2023-11-26] MEDS: methylPREDNISolone NA SUCC 40 MG/1 ML VIAL IVPUSH SCH (21:17)
[2023-11-27] MEDS: INSULIN ASPART SLIDING SCALE (NOVOLOG) 1 VIAL SQ SCH (06:05)
[2023-11-27] MEDS: INSULIN (LEVEMIR) 100 UNITS/ML UNITS SQ SCH ×2 (06:05→22:33)
[2023-11-27] MEDS: LISINOPRIL 5 MG TABLET PO SCH (09:25)
[2023-11-27 10:11] LABS: HEMATOCRIT 35.4 % (32.4-45.2); HEMOGLOBIN 11.4 GM/dL (10.7-15.3); MCH 30.6 pg (25.7-33.7); MCHC 32.2 g/dl (32.0-36.0); PLATELET COUNT 203 10^3/uL (134-434); RBC 3.73 M/mm3 (3.60-5.2); RDW 14.7 % (11.6-15.6); WHITE BLOOD COUNT 8.4 K/mm3 (4.0-10.0)
[2023-11-27 10:25] LABS: POTASSIUM 5.1 mmol/L (3.5-5.1)
[2023-11-27 10:36] LABS: ALBUMIN 2.2 g/dl (3.4-5.0); BLOOD UREA NITROGEN 42.6 mg/dL (7-18); CALCIUM 9.9 mg/dL (8.5-10.1)
[2023-11-27 10:40] LABS: CREATININE 1.8 mg/dL (0.55-1.3)
[2023-11-27 10:41] LABS: TOT PROT 5.9 g/dl (6.4-8.2)
[2023-11-27 10:42] LABS: BILIRUBIN,TOTAL 0.4 mg/dL (0.2-1)
[2023-11-27] MEDS: ALBUTEROL SO4 2.5/IPRATROPIUM 0.5 INH SOL 3 ML VIAL.NEB. NEB PRN (11:04)
[2023-11-27 11:44] LABS: ANISOCYTOSIS 0; MACROCYTOSIS 0
[2023-11-28 12:14] LABS: ARTERIAL BLD GAS O2 SATURATION 81.7 % (95-98); ARTERIAL BLOOD GAS BASE EXCESS 4.6 mmol/L (-2-2); ARTERIAL BLOOD GAS pH 7.295 (7.350-7.450)
[2023-11-28 12:16] LABS: ALLENS TEST POSITIVE
[2023-11-28] MEDS: ALBUTEROL SO4 2.5/IPRATROPIUM 0.5 INH SOL 3 ML VIAL.NEB. NEB PRN (15:41)
[2023-11-28] MEDS: INSULIN ASPART SLIDING SCALE (NOVOLOG) 1 VIAL SQ SCH (17:38)
[2023-11-28] MEDS: ACETAMINOPHEN 500 MG TABLET (FP) PO PRN (18:01)
[2023-11-28] MEDS: MONTELUKAST NA 10 MG TABLET PO SCH (21:00)
[2023-11-28] MEDS: ATORVASTATIN CA 10 MG TABLET (FP) PO SCH (21:00)
[2023-11-28] MEDS: methylPREDNISolone NA SUCC 40 MG/1 ML VIAL IVPUSH SCH (21:00)
[2023-11-28] MEDS: ALPRAZolam 0.25 MG TABLET PO SCH (21:01)
[2023-11-28] MEDS: DONEPEZIL HCL 5 MG TABLET (FP) PO SCH (21:01)
[2023-11-28] MEDS: BUDESONIDE/FORMETEROL FUMARATE 160/4.5 mcg INHALER IH SCH (21:08)
[2023-11-29] MEDS ORDERED: DEXTROSE 50%-WATER 25 GM/50 ML DISP.SYRIN ONE (05:37)
[2023-11-29] MEDS: DEXTROSE 50%-WATER - 25 GM/50 ML VIAL IVPUSH PRN (06:05)
[2023-11-29] MEDS: EMPAGLIFLOZIN (JARDIANCE) 10 MG TABLET PO SCH (06:25)
[2023-11-29] MEDS: methaDONE HCL 40 MG DISPERSABLE TABLET PO SCH (06:47)
[2023-11-29] MEDS ORDERED: RAPID SEQUENCE INTUBATION KIT NR ONE (08:20)
[2023-11-29] MEDS ORDERED: FUROSEMIDE 40 MG/4 ML INJECTABLE VIAL ONE (08:22)
[2023-11-29] MEDS ORDERED: methylPREDNISolone NA SUCC 125 MG/2 ML VIAL ONE (08:23)
[2023-11-29] MEDS ORDERED: MIDAZOLAM HCL 5 MG/1 ML Single Dose Vial ONE (08:52)
[2023-11-29 09:01] LABS: ARTERIAL BLD GAS O2 SATURATION 63.7 % (95-98); ARTERIAL BLOOD GAS BASE EXCESS 4.7 mmol/L (-2-2); ARTERIAL BLOOD GAS pH 7.282 (7.350-7.450)
[2023-11-29 09:03] LABS: ALLENS TEST POSITIVE
[2023-11-29] MEDS ORDERED: MIDAZOLAM IN 0.9 % SOD.CHLORID 1 MG/1 ML PLAST..BAG ONE (09:04)
[2023-11-29 09:05] LABS: VENT RATE 16
[2023-11-29 09:07] LABS: ARTERIAL BLOOD GAS PO2 38.3 mmHg (80-100)
[2023-11-29] MEDS: MIDAZOLAM HCL 5 MG/1 ML Single Dose Vial IVPUSH ONE (09:10)
[2023-11-29] MEDS: MIDAZOLAM IN 0.9 % SOD.CHLORID 100 MG/100 ML PLAST..BAG IVPB SCH (09:15)
[2023-11-29] MEDS: FUROSEMIDE 40 MG/4 ML INJECTABLE VIAL IVPUSH SCH (09:16)
[2023-11-29] MEDS: LORazepam 2 MG/ML SDV VIAL IVPUSH ONE (09:19)
[2023-11-29] MEDS: ASPIRIN 81 MG CHEWABLE TABLETS PO SCH (09:20)
[2023-11-29] MEDS: SODIUM ZIRCONIUM CYCLOSILICATE (LOKELMA) 5 GM PACKET PO SCH (09:20)
[2023-11-29] MEDS: MAGNESIUM OXIDE 400 MG TABLET (FP) PO SCH (09:20)
[2023-11-29] MEDS ORDERED: LORazepam 4 MG/1 ML VIAL IVPUSH ONE (09:30)
[2023-11-29 09:36] LABS: HEMATOCRIT 38.6 % (32.4-45.2); HEMOGLOBIN 12.6 GM/dL (10.7-15.3); MCH 30.6 pg (25.7-33.7); MCHC 32.6 g/dl (32.0-36.0); MEAN CELL VOLUME 93.8 fl (80-96); MEAN PLT VOLUME 9.2 fl (7.5-11.1); PLATELET COUNT 179 10^3/uL (134-434); RBC 4.12 M/mm3 (3.60-5.2); RDW 15.5 % (11.6-15.6); WHITE BLOOD COUNT 7.7 K/mm3 (4.0-10.0)
[2023-11-29] MEDS: ENOXAPARIN NA (PORCINE) 40 MG/0.4 ML DISP.SYRIN SQ SCH (09:47)
[2023-11-29] MEDS: LISINOPRIL 5 MG TABLET PO SCH (09:48)
[2023-11-29] MEDS ORDERED: PROPOFOL 1,000,000 MCG/100 ML VIAL ONE (10:01)
[2023-11-29 10:09] LABS: ALBUMIN 1.9 g/dl (3.4-5.0); MAGNESIUM 2.5 mg/dL (1.8-2.4)
[2023-11-29 10:12] LABS: CREATININE 2.3 mg/dL (0.55-1.3); PHOSPHOROUS 7.4 mg/dL (2.5-4.9)
[2023-11-29 10:13] LABS: TOT PROT 6.1 g/dl (6.4-8.2)
[2023-11-29] MEDS: PROPOFOL 1,000,000 MCG/100 ML VIAL IVPB SCH (10:30)
[2023-11-29 10:33] LABS: ALLENS TEST POSITIVE; ARTERIAL BLD GAS O2 SATURATION 60.2 % (95-98); ARTERIAL BLOOD GAS BASE EXCESS 2.7 mmol/L (-2-2); ARTERIAL BLOOD GAS pH 7.283 (7.350-7.450)
[2023-11-29 10:34] LABS: VENT RATE 16
[2023-11-29] MEDS ORDERED: MINERAL OIL/PETROLATUM,WHITE 3.5 GM TUBE OU PRN (10:48)
[2023-11-29 11:02] LABS: BILIRUBIN,TOTAL 0.4 mg/dL (0.2-1)
[2023-11-29] MEDS: ROCURONIUM BROMIDE 500 MG/300 ML BAG IVPB SCH (11:40)
[2023-11-29 11:50] LABS: ANISOCYTOSIS 0; HELMET CELLS 0; HOWELL-JOLLY BODIES 0; MACROCYTOSIS 0; OVALOCYTE 0; ROULEAU 0; SICKELED CELLS 0; TARGET CELLS 0; TEAR DROP CELLS 0; TOXIC GRANULATION 0
[2023-11-29] MEDS: MUPIROCIN 2% TOPICAL OINTMENT FOR DECOLONIZATION NS SCH (11:57)
[2023-11-29] MEDS: MEROPENEM 1 GM in DEXTROSE 5%-WATER 100 ML IVPB ONE (11:57)
[2023-11-29] MEDS: ACETAMINOPHEN 1000 MG/100 ML BAG IVPB PRN (11:57)
[2023-11-29] MEDS: VANCOMYCIN PREMIX 1.5 GM 1,500 MG/300 ML BAG IVPB SCH (13:30)
[2023-11-29] MEDS: VANCOMYCIN/WATER FOR INJ (PEG) 1,000 MG/200 ML BAG IVPB ONE (13:30)
[2023-11-29] MEDS: PIPERACILLIN/TAZOB 4.5 GM 4.5 GM in DEXTROSE 5%-WATER 100 ML IVPB ONE (13:31)
[2023-11-29] MEDS: ADENOSINE 6 MG/2 ML VIAL IVPUSH ONE ×2 (13:55→14:15)
[2023-11-29] MEDS: methylPREDNISolone NA SUCC 40 MG/1 ML VIAL IVPUSH SCH (14:16)
[2023-11-29] MEDS ORDERED: ADENOSINE 6 MG/2 ML VIAL IVPUSH ONE (14:18)
[2023-11-29] MEDS ORDERED: AZITHROMYCIN IVPB 500 MG/250 ML BAG IVPB ONE (14:23)
[2023-11-29] MEDS ORDERED: EPINEPHrine 1:10,000 (P-F SYR) 1 MG/10 ML DISP.SYRIN ONE ×2 (14:38→14:49)
[2023-11-29] MEDS ORDERED: VASopressin 20 UNITS/ML VIAL IV ONE (14:43)
[2023-11-29 17:14] VITALS: RESP 21; TEMP 101.3
[2023-11-29 17:17] VITALS: BP 75/54; PULSE 126
[2023-11-29] MEDS ORDERED: PIPERACILLIN/TAZOB 4.5 GM 4.5 GM in DEXTROSE 5%-WATER 100 ML IVPB SCH (20:00)
[2023-11-29] MEDS ORDERED: CHLORHEXIDINE GLUCONATE 4% CLEANSER FOR DECOLONIZATION TP SCH (22:00)
[2023-11-29] MEDS ORDERED: MEROPENEM 1 GM in DEXTROSE 5%-WATER 100 ML IVPB SCH (23:30)
[2023-11-30] MEDS ORDERED: VANCOMYCIN HCL 1,500 MG in DEXTROSE 5%-WATER - 500 ML IVPB SCH (11:15)
== END 2023-11-29 15:00 | disposition expired | DRG 208 ==
LOC: JER 08:35 → JERBED 12:16 → J8W 11-25 01:08 → J6S 11-27 10:23 → J2W 11-27 16:24 → JICU 11-29 11:41
PROVIDERS: ADMIT Internal Medicine; ATTEND Internal Medicine
PROC: 5A1945Z Respiratory Ventilation, 24-96 Consecutive Hours (ICD-10-PCS; principal; 2023-11-29)
PROC: 0BH17EZ Insertion of Endotracheal Airway into Trachea, Via Natural or Artificial Opening (ICD-10-PCS; 2023-11-29)
PROC: 05HM33Z Insertion of Infusion Device into Right Internal Jugular Vein, Percutaneous Approach (ICD-10-PCS; 2023-11-29)
PROC: B543ZZA Ultrasonography of Right Jugular Veins, Guidance (ICD-10-PCS; 2023-11-29)
PROC: 5A12012 Performance of Cardiac Output, Single, Manual (ICD-10-PCS; 2023-11-29)
DX: J44.1 Chronic obstructive pulmonary disease with (acute) exacerbation (principal); I50.33 Acute on chronic diastolic (congestive) heart failure; J96.22 Acute and chronic respiratory failure with hypercapnia; J96.21 Acute and chronic respiratory failure with hypoxia; I13.0 Hypertensive heart and chronic kidney disease with heart failure and stage 1 through stage 4 chronic kidney disease, or unspecified chronic kidney disease; F11.20 Opioid dependence, uncomplicated; E87.29 Other acidosis; N17.9 Acute kidney failure, unspecified; Z68.41 Body mass index [BMI] 40.0-44.9, adult; J44.0 Chronic obstructive pulmonary disease with (acute) lower respiratory infection; E11.22 Type 2 diabetes mellitus with diabetic chronic kidney disease; E11.51 Type 2 diabetes mellitus with diabetic peripheral angiopathy without gangrene; F03.90 Unspecified dementia, unspecified severity, without behavioral disturbance, psychotic disturbance, mood disturbance, and anxiety; E11.42 Type 2 diabetes mellitus with diabetic polyneuropathy; K76.0 Fatty (change of) liver, not elsewhere classified; N18.9 Chronic kidney disease, unspecified; K21.9 Gastro-esophageal reflux disease without esophagitis; F12.90 Cannabis use, unspecified, uncomplicated; F17.210 Nicotine dependence, cigarettes, uncomplicated; I50.9 Heart failure, unspecified; E03.9 Hypothyroidism, unspecified; E66.01 Morbid (severe) obesity due to excess calories; E11.65 Type 2 diabetes mellitus with hyperglycemia
CPT/HCPCS: 0241U-QW; 31500; 36415; 36600; 70450-TC; 71045-TC-FY; 72131-TC; 80053; 80061; 80305; 80307; 82803; 82962; 83036; 83735; 83880; 84100; 84439; 84443; 85025; 87070; 87086; 87205; 87389; 87899; 93005; 93010; 94640; 94660; 99285-25; J0131; J1100